=== PATIENT | female | born 1945 | race Caucasian/White ===

== ENCOUNTER 2017-12-24 03:30 | Emergency (ER) | payer BC ==
--- NOTE | 2017-12-24 03:54 | ER ---
Nurse's Notes [facility] Name: Betina Ward Age: 72 yrs Sex: Female : 1945 Arrival Date: 12/24/2017 Time: 03:35 Bed 5 Private MD: Karthik Gunter H Diagnosis: Otalgia and effusion of ear Presentation: 12/24 03:45 Presenting complaint: Patient states: right ear pain since , 6 days EDITORIAL INTERN. ak1 Transition of care: patient was not received from another setting of care. Onset of symptoms is unknown. Risk Assessment: Do you want to hurt yourself or someone else? Patient reports no desire to harm self or others. Initial Sepsis Screen: Does the patient meet any 2 criteria? No. Patient's initial sepsis screen is negative. Does the patient have a suspected source of infection? No. Patient's initial sepsis screen is negative. Care prior to arrival: None. 03:45 Method Of Arrival: Ambulatory ak1 03:45 Acuity: RIANA 4 ak1 Triage Assessment: 03:47 General: Appears in no apparent distress. Behavior is calm, cooperative. Pain: ak1 Complains of pain in right ear. Historical: - Allergies: 03:47 No Known Allergies; ak1 - Home Meds: 03:47 Unable to obtain [Active]; ak1 - PMHx: 03:47 Diabetes - IDDM; Hyperlipidemia; Hypertension; Hypothyroidism; ak1 - PSHx: 03:47 None; ak1 - Immunization history:: Adult Immunizations unknown. - Social history:: Smoking status: Patient/guardian denies using tobacco. - Ebola Screening: : No symptoms or risks identified at this time. Screenin:47 Abuse screen: Denies threats or abuse. Denies injuries from another. Nutritional ak1 screening: No deficits noted. Tuberculosis screening: No symptoms or risk factors identified. Fall Risk None identified. Assessment: 04:02 General: Appears in no apparent distress. Behavior is calm, cooperative, appropriate lp1 for age. Pain: Complains of pain in right ear Pain currently is 5 out of 10 on a pain scale. Neuro: Level of Consciousness is awake, alert, obeys commands. Cardiovascular: Patient's skin is warm and dry. Respiratory: Respiratory effort is even, unlabored. GI: No signs and/or symptoms were reported involving the gastrointestinal system. : No signs and/or symptoms were reported regarding the genitourinary system. EENT: Reports pain in right ear. Derm: Skin is pink, warm \T\ dry. Musculoskeletal: Circulation, motion, and sensation intact. Vital Signs: 03:45 BP 170 / 103; Pulse 107; Resp 18; Temp 99(TE); Pulse Ox 98% on R/A; Weight 81.65 kg ak1 (R); Height 5 ft. 6 in. (167.64 cm) (R); Pain 8/10; 03:45 Body Mass Index 29.05 (81.65 kg, 167.64 cm) ak1 ED Course: 03:35 Patient arrived in ED. al2 03:36 Karthik Gunter DO is Private Physician. al2 03:41 Vlad Downs MD is Attending Physician. 03:46 Triage completed. ak1 03:47 Arm band placed on Patient placed in an exam room, on a stretcher, Patient notified of ak1 wait time. 03:48 Patient has correct armband on for positive identification. Bed in low position. Call ak1 light in reach. Side rails up X 1. Adult w/ patient. 03:52 Karo Huitron MD is Referral Physician. 04:02 Gina Hernadez, RN is Primary Nurse. lp1 04:03 No provider procedures requiring assistance completed. Patient did not have IV access lp1 during this emergency room visit. Administered Medications: No medications were administered Outcome: 03:53 Discharge ordered by . 04:03 Discharged to home ambulatory, with significant other. lp1 04:03 Condition: good 04:03 Discharge instructions given to patient, Instructed on discharge instructions, follow up and referral plans. medication usage, Demonstrated understanding of instructions, follow-up care, medications, Prescriptions given X 2. 04:04 Patient left the ED. lp1 Signatures: Gina Hernadez RN RN lp1 Jeannie Rizo RN RN ak1 Vlad Downs MD MD gs Love, Angelica al2
--- NOTE | 2017-12-24 03:54 | EDPHYS ---
Physician Documentation [facility] Name: Betina Ward Age: 72 yrs Sex: Female : 1945 Arrival Date: 12/24/2017 Time: 03:35 Bed 5 Private MD: Karthik Gunter H ED Physician Vlad Downs HPI: 12/24 03:51 This 72 yrs old Female presents to ER via Ambulatory with complaints of Ear gs Pain. 03:51 This 72 yrs old Female presents to ER via Ambulatory with complaints of Ear gs Pain. 03:51 The patient presents with pain. The complaints affect the right ear. Onset: The gs symptoms/episode began/occurred 5 day(s) ago, and became persistent. Modifying factors: The symptoms are alleviated by nothing, the symptoms are aggravated by pulling on ears. Associated signs and symptoms: Pertinent negatives: fever, lightheadedness, shortness of breath, sore throat. Severity of symptoms: At their worst the symptoms were moderate in the emergency department the symptoms are unchanged. The patient has experienced similar episodes in the past, a few times. Historical: - Allergies: 03:47 No Known Allergies; ak1 - Home Meds: 03:47 Unable to obtain [Active]; ak1 - PMHx: 03:47 Diabetes - IDDM; Hyperlipidemia; Hypertension; Hypothyroidism; ak1 - PSHx: 03:47 None; ak1 - Immunization history:: Adult Immunizations unknown. - Social history:: Smoking status: Patient/guardian denies using tobacco. - Ebola Screening: : No symptoms or risks identified at this time. ROS: 03:51 All other systems are negative. gs Exam: 03:51 Head/Face: Normocephalic, atraumatic. Eyes: Pupils equal round and reactive to light, gs extra-ocular motions intact. Lids and lashes normal. Conjunctiva and sclera are non-icteric and not injected. Cornea within normal limits. Periorbital areas with no swelling, redness, or edema. Neck: Trachea midline, no thyromegaly or masses palpated, and no cervical lymphadenopathy. Supple, full range of motion without nuchal rigidity, or vertebral point tenderness. No Meningismus. Chest/axilla: Normal chest wall appearance and motion. Nontender with no deformity. No lesions are appreciated. Cardiovascular: Regular rate and rhythm with a normal S1 and S2. No gallops, murmurs, or rubs. Normal PMI, no JVD. No pulse deficits. Respiratory: Lungs have equal breath sounds bilaterally, clear to auscultation and percussion. No rales, rhonchi or wheezes noted. No increased work of breathing, no retractions or nasal flaring. Abdomen/GI: Soft, non-tender, with normal bowel sounds. No distension or tympany. No guarding or rebound. No evidence of tenderness throughout. Back: No spinal tenderness. No costovertebral tenderness. Full range of motion. Skin: Warm, dry with normal turgor. Normal color with no rashes, no lesions, and no evidence of cellulitis. MS/ Extremity: Pulses equal, no cyanosis. Neurovascular intact. Full, normal range of motion. Neuro: Awake and alert, GCS 15, oriented to person, place, time, and situation. Cranial nerves II-XII grossly intact. Motor strength 5/5 in all extremities. Sensory grossly intact. Cerebellar exam normal. Normal gait. 03:51 Constitutional: The patient appears in no acute distress, alert, awake. 03:51 ENT: Ear canal(s): are normal, TM's: dullness, on the right, fluid levels, on the right, loss of bony landmarks, that is moderate, on the right. Vital Signs: 03:45 BP 170 / 103; Pulse 107; Resp 18; Temp 99(TE); Pulse Ox 98% on R/A; Weight 81.65 kg ak1 (R); Height 5 ft. 6 in. (167.64 cm) (R); Pain 8/10; 03:45 Body Mass Index 29.05 (81.65 kg, 167.64 cm) ak1 MDM: 03:47 Patient medically screened. 03:51 Differential diagnosis: otitis media, acute otalgia, barotrauma . Data reviewed: vital gs signs, nurses notes. Administered Medications: No medications were administered Disposition: 12/24/17 03:53 Discharged to Home. Impression: Otalgia and effusion of ear. - Condition is Stable. - Discharge Instructions: Otitis Media With Effusion. - Prescriptions for Ceftin 250 mg Oral Tablet - take 1 tablet by ORAL route every 12 hours for 10 days; 20 tablet. Tylenol- Codeine #3 300-30 mg Oral Tablet - take 1 tablet by ORAL route every 6 hours As needed; 10 tablet. - Medication Reconciliation Form, Thank You Letter, Antibiotic Education, Prescription Opioid Use form. - Follow up: Private Physician; When: 2 - 3 days; Reason: Re-evaluation by your physician. Follow up: Karo Huitron MD; When: 5 - 6 days; Reason: Re-evaluation by your physician. Signatures: Gina Hernadez RN RN lp1 Jeannie Rizo RN RN ak1 Vlad Downs MD MD gs Corrections: (The following items were deleted from the chart) 04:04 03:53 12/24/2017 03:53 Discharged to Home. Impression: Otalgia and effusion of ear. lp1 Condition is Stable. Forms are Medication Reconciliation Form, Thank You Letter, Antibiotic Education, Prescription Opioid Use. Follow up: Private Physician; When: 2 - 3 days; Reason: Re-evaluation by your physician. Follow up: Karo Huitron; When: 5 - 6 days; Reason: Re-evaluation by your physician. gs
== END 2017-12-24 04:04 | disposition home or self-care (01) ==
LOC: ER 03:30
DX: H92.01 Otalgia, right ear (principal); E11.9 Type 2 diabetes mellitus without complications; E78.5 Hyperlipidemia, unspecified; I10 Essential (primary) hypertension; E03.9 Hypothyroidism, unspecified; Z79.4 Long term (current) use of insulin
CPT/HCPCS: 99282

== ENCOUNTER 2018-10-09 17:04 | Emergency (ER) | payer BC ==
[2018-10-09] MEDS ORDERED: LABETALOL 20 MG/4ML SYRINGE IV ONE (20:06)
[2018-10-09] MEDS ORDERED: NA CHLORIDE 0.9% 100 ML IV ONE (20:07)
[2018-10-09 20:25] LABS: Absolute Lymphocytes (CBC) 2.7 K/uL (0.7-4.9); Absolute Monocytes 0.8 K/uL (0.1-1.3); Absolute Neutrophil 5.9 K/uL (1.8-8.0); Basophils % 0.8 % (0-1.3); Eosinophils % 0.9 % (0-4.4); Hematocrit 43.4 % (36.0-45.0); Lymphocytes % 28.8 % (15.3-44.8); MPV 8.2 fL (7.6-11.3); Monocytes % 8.1 % (3.3-12.3); RBC Red Blood Cell Count 4.89 M/uL (3.86-4.86)
--- NOTE | 2018-10-09 20:27 | RAD REPORT ---
EXAM DESCRIPTION: RAD - Elbow Left 3 View - 10/09/2018 8:13 pm CLINICAL HISTORY: PAIN COMPARISON: No comparisons FINDINGS: No acute fracture or dislocation is seen. Tendon calcifications are seen about the medial and lateral epicondyles.
[2018-10-09 20:39] LABS: Potassium 3.6 mmol/L (3.5-5.1)
[2018-10-09] MEDS ORDERED: prednisoLONE 15 MG/5 ML OSYR ONE (22:07)
[2018-10-09] MEDS ORDERED: INDOMETHACIN 25 MG CAP ONE (22:21)
--- NOTE | 2018-10-09 22:35 | ER ---
Nurse's Notes [facility] Name: Betina Ward Age: 72 yrs Sex: Female : 1945 Arrival Date: 10/09/2018 Time: 17:05 Bed 23 Private MD: Diagnosis: Pain in left elbow Presentation: 10/09 17:10 Presenting complaint: Patient states: my L elbow started hurting yesterday, it moves up ss to the L arm; denies trauma to the area;. Transition of care: patient was not received from another setting of care. Onset of symptoms was October 09, 2018. Risk Assessment: Do you want to hurt yourself or someone else? Patient reports no desire to harm self or others. Initial Sepsis Screen: Does the patient meet any 2 criteria? No. Patient's initial sepsis screen is negative. Does the patient have a suspected source of infection? No. Patient's initial sepsis screen is negative. Care prior to arrival: None. 17:10 Method Of Arrival: Ambulatory ss 17:10 Acuity: RIANA 4 ss Historical: - Allergies: 17:12 No Known Drug Allergies; ss - PMHx: 17:12 Diabetes - IDDM; Hyperlipidemia; Hypertension; Hypothyroidism; ss - PSHx: 17:12 None; ss - Immunization history:: Adult Immunizations up to date. - Social history:: Smoking status: Patient/guardian denies using tobacco. - Ebola Screening: : No symptoms or risks identified at this time. Screenin:01 Abuse screen: Denies threats or abuse. Denies injuries from another. Nutritional rv screening: No deficits noted. Tuberculosis screening: No symptoms or risk factors identified. Fall Risk None identified. Assessment: 18:56 General: Appears in no apparent distress. comfortable, Behavior is calm, cooperative. rv Pain: Complains of pain in left arm. Neuro: Level of Consciousness is awake, alert, obeys commands, Oriented to person, place, time, situation. Cardiovascular: Capillary refill < 3 seconds. Respiratory: Airway is patent. GI: No signs and/or symptoms were reported involving the gastrointestinal system. : No signs and/or symptoms were reported regarding the genitourinary system. EENT: No signs and/or symptoms were reported regarding the EENT system. Derm: Rash noted that is on left elbow. Musculoskeletal: No signs and/or symptoms reported regarding the musculoskeletal system. 19:50 Reassessment: Patient appears in no apparent distress at this time. Patient and/or rv family updated on plan of care and expected duration. Pain level reassessed. Patient is alert, oriented x 3, equal unlabored respirations, skin warm/dry/pink. Vital Signs: 17:12 BP 193 / 78; Pulse 99; Resp 18; Temp 97.6(TE); Pulse Ox 97% on R/A; Weight 72.57 kg; ss Height 5 ft. 4 in. (162.56 cm); Pain 10/10; 18:00 BP 215 / 104; Pulse 98; Resp 16; Temp 97.8; Pulse Ox 100% ; rv 18:30 BP 212 / 78; Pulse 93; Resp 15; Temp 97.5; Pulse Ox 98% ; rv 19:00 BP 202 / 92; Pulse 91; Resp 15; Temp 97.6; Pulse Ox 98% ; rv 19:30 BP 194 / 72; Pulse 88; Resp 18; Temp 97.4; Pulse Ox 99% ; rv 20:26 BP 152 / 89; Pulse 81; Resp 18; Temp 97.4; Pulse Ox 100% ; rv 22:59 BP 166 / 66; Pulse 85; Resp 16; Temp 97.8; Pulse Ox 98% ; rv 17:12 Body Mass Index 27.46 (72.57 kg, 162.56 cm) ED Course: 17:05 Patient arrived in ED. as 17:11 Triage completed. ss 17:12 Arm band placed on right wrist. ss 18:56 Jose Manuel Martin, RN is Primary Nurse. rv 19:02 Patient has correct armband on for positive identification. Bed in low position. Call rv light in reach. Side rails up X 1. Adult w/ patient. Pulse ox on. NIBP on. 19:39 Eliel Diaz PA is PHCP. jr8 19:39 Catrahco Pena MD is Attending Physician. jr8 20:12 Inserted saline lock: 22 gauge in right antecubital area, using aseptic technique. rv Blood collected. 20:12 First set of blood cultures drawn by me. rv 20:13 XRAY Elbow LEFT 3 view In Process Unspecified. EDMS 22:33 Yao Lucas MD is Referral Physician. jr8 22:59 No provider procedures requiring assistance completed. IV discontinued, intact, rv bleeding controlled, No redness/swelling at site. Pressure dressing applied. Administered Medications: 20:12 Drug: Labetalol 10 mg Route: IVP; Site: right antecubital; rv 20:26 Follow up: Response: Blood pressure is lowered rv 21:30 Drug: prednisoLONE Liquid 60 mg Route: PO; rv 23:00 Follow up: Response: Marked relief of symptoms rv 22:14 Drug: Indocin 50 mg Route: PO; rv 23:00 Follow up: Response: Marked relief of symptoms rv Outcome: 22:34 Discharge ordered by . jr8 22:59 Discharged to home ambulatory. rv 22:59 Condition: good 22:59 Discharge instructions given to patient, family, Instructed on discharge instructions, follow up and referral plans. medication usage, Demonstrated understanding of instructions, follow-up care, medications, Prescriptions given X 3. 23:00 Patient left the ED. rv Signatures: Dispatcher [employer] EDMS Antonia Mccall Shelby, RN RN ss Eliel Diaz PA PA jr8 Jose Manuel Martin RN RN rv Corrections: (The following items were deleted from the chart) 17:14 17:12 Pulse 99bpm; Resp 18bpm; Pulse Ox 97% RA; Temp 97.6F Temporal; 72.57 kg; Height 5 ss ft. 4 in.; BMI: 27.4; Pain 10/10; ss 17:15 17:12 Pulse 99bpm; Resp 18bpm; Pulse Ox 97% RA; Temp 97.6F Temporal; 72.57 kg; Height 5 ss ft. 4 in.; BMI: 27.4; Pain 10/10; ss 22:14 22:14 prednisoLONE Liquid 60 mg PO rv rv
--- NOTE | 2018-10-09 22:35 | EDPHYS ---
Physician Documentation [facility] Name: Betina Ward Age: 72 yrs Sex: Female : 1945 Arrival Date: 10/09/2018 Time: 17:05 Bed 23 Private MD: ED Physician Catracho Pena HPI: 10/09 21:02 This 72 yrs old Female presents to ER via Ambulatory with complaints of Arm jr8 Pain. 21:02 The patient or guardian complains of decreased range of motion, pain, tenderness. The jr8 complaints affect the left elbow. Onset: The symptoms/episode began/occurred acutely, today. Treatment prior to arrival includes: no previous treatment. Modifying factors: The symptoms are alleviated by nothing. the symptoms are aggravated by movement. Associated signs and symptoms: The patient has no apparent associated signs or symptoms. Severity of symptoms: At their worst the symptoms were moderate, in the emergency department the symptoms are unchanged. The patient has not experienced similar symptoms in the past. The patient has not recently seen a physician. Stated that today had elbow pain that is not going away. Denies trauma to elbow. Historical: - Allergies: 17:12 No Known Drug Allergies; ss - PMHx: 17:12 Diabetes - IDDM; Hyperlipidemia; Hypertension; Hypothyroidism; ss - PSHx: 17:12 None; ss - Immunization history:: Adult Immunizations up to date. - Social history:: Smoking status: Patient/guardian denies using tobacco. - Ebola Screening: : No symptoms or risks identified at this time. ROS: 21:02 Eyes: Negative for injury, pain, redness, and discharge, ENT: Negative for injury, jr8 pain, and discharge, Neck: Negative for injury, pain, and swelling, Cardiovascular: Negative for chest pain, palpitations, and edema, Respiratory: Negative for shortness of breath, cough, wheezing, and pleuritic chest pain, Abdomen/GI: Negative for abdominal pain, nausea, vomiting, diarrhea, and constipation, Back: Negative for injury and pain, Skin: Negative for injury, rash, and discoloration, Neuro: Negative for headache, weakness, numbness, tingling, and seizure. 21:02 MS/extremity: Positive for erythema, pain, tenderness, warmth, of the left elbow. Exam: 21:02 Eyes: Pupils equal round and reactive to light, extra-ocular motions intact. Lids and jr8 lashes normal. Conjunctiva and sclera are non-icteric and not injected. Cornea within normal limits. Periorbital areas with no swelling, redness, or edema. ENT: Nares patent. No nasal discharge, no septal abnormalities noted. Tympanic membranes are normal and external auditory canals are clear. Oropharynx with no redness, swelling, or masses, exudates, or evidence of obstruction, uvula midline. Mucous membranes moist. Neck: Trachea midline, no thyromegaly or masses palpated, and no cervical lymphadenopathy. Supple, full range of motion without nuchal rigidity, or vertebral point tenderness. No Meningismus. Cardiovascular: Regular rate and rhythm with a normal S1 and S2. No gallops, murmurs, or rubs. Normal PMI, no JVD. No pulse deficits. Respiratory: Lungs have equal breath sounds bilaterally, clear to auscultation and percussion. No rales, rhonchi or wheezes noted. No increased work of breathing, no retractions or nasal flaring. Abdomen/GI: Soft, non-tender, with normal bowel sounds. No distension or tympany. No guarding or rebound. No evidence of tenderness throughout. Back: No spinal tenderness. No costovertebral tenderness. Full range of motion. Skin: Warm, dry with normal turgor. Normal color with no rashes, no lesions, and no evidence of cellulitis. Neuro: Awake and alert, GCS 15, oriented to person, place, time, and situation. Cranial nerves II-XII grossly intact. Motor strength 5/5 in all extremities. Sensory grossly intact. Cerebellar exam normal. Normal gait. 21:02 Musculoskeletal/extremity: Extremities: grossly normal except: noted in the left elbow: erythema, pain, tenderness, lateral portion of elbow. No bursa inflammation noted. No global swelling or erythema noted. Pain with ROM. Decreased ROM secondary to pain but has active ROM. , Circulation is intact in all extremities. Sensation intact. Vital Signs: 17:12 BP 193 / 78; Pulse 99; Resp 18; Temp 97.6(TE); Pulse Ox 97% on R/A; Weight 72.57 kg; ss Height 5 ft. 4 in. (162.56 cm); Pain 10/10; 18:00 BP 215 / 104; Pulse 98; Resp 16; Temp 97.8; Pulse Ox 100% ; rv 18:30 BP 212 / 78; Pulse 93; Resp 15; Temp 97.5; Pulse Ox 98% ; rv 19:00 BP 202 / 92; Pulse 91; Resp 15; Temp 97.6; Pulse Ox 98% ; rv 19:30 BP 194 / 72; Pulse 88; Resp 18; Temp 97.4; Pulse Ox 99% ; rv 20:26 BP 152 / 89; Pulse 81; Resp 18; Temp 97.4; Pulse Ox 100% ; rv 22:59 BP 166 / 66; Pulse 85; Resp 16; Temp 97.8; Pulse Ox 98% ; rv 17:12 Body Mass Index 27.46 (72.57 kg, 162.56 cm) ss MDM: 19:39 Patient medically screened. jr8 22:32 Data reviewed: vital signs, nurses notes, lab test result(s), radiologic studies, plain jr8 films. Data interpreted: Pulse oximetry: on room air is 100 %. Interpretation: normal. Counseling: I had a detailed discussion with the patient and/or guardian regarding: the historical points, exam findings, and any diagnostic results supporting the discharge/admit diagnosis, lab results, radiology results, the need for outpatient follow up, a orthopedic surgeon, to return to the emergency department if symptoms worsen or persist or if there are any questions or concerns that arise at home. Response to treatment: the patient's symptoms have markedly improved after treatment. 10/09 19:46 Order name: CBC with Diff; Complete Time: 20:45 [facility] 10/09 19:46 Order name: Basic Metabolic Panel; Complete Time: 20:45 8 10/09 19:46 Order name: XRAY Elbow LEFT 3 view; Complete Time: 20:45 8 10/09 19:46 Order name: Blood Culture Adult (2) [facility] 10/09 19:46 Order name: IV; Complete Time: 20:13 jr8 Administered Medications: 20:12 Drug: Labetalol 10 mg Route: IVP; Site: right antecubital; rv 20:26 Follow up: Response: Blood pressure is lowered rv 21:30 Drug: prednisoLONE Liquid 60 mg Route: PO; rv 23:00 Follow up: Response: Marked relief of symptoms rv 22:14 Drug: Indocin 50 mg Route: PO; rv 23:00 Follow up: Response: Marked relief of symptoms rv Disposition: 05/10 15:00 Co-signature as Attending Physician, Catracho Pena MD I agree with the assessment and marsha plan of care. Disposition: 10/09/18 22:34 Discharged to Home. Impression: Pain in left elbow. - Condition is Stable. - Discharge Instructions: Joint Pain, Gout, Septic Arthritis. - Prescriptions for indomethacin 25 mg Oral capsule - take 1 capsule by ORAL route 3 times per day As needed with food; 20 capsule. Prednisone 20 mg Oral Tablet - take 1 tablet by ORAL route once daily for 5 days; 5 tablet. Bactrim DS 800- 160 mg Oral Tablet - take 1 tablet by ORAL route every 12 hours for 7 days; 14 tablet. - Medication Reconciliation Form, Thank You Letter, Antibiotic Education, Prescription Opioid Use form. - Follow up: Yao Lucas MD; When: 2 - 3 days; Reason: Recheck today's complaints, Continuance of care, Re-evaluation by your physician. - Problem is new. - Symptoms have improved. Signatures: Dispatcher [employer] EDIN Catracho Pena MD MD cha Smirch, Shelby RN RN Eliel Peoples PA PA jr8 Jose Manuel Martin RN RN rv Corrections: (The following items were deleted from the chart) 10/09 23:00 22:34 10/09/2018 22:34 Discharged to Home. Impression: Pain in left elbow. Condition is rv Stable. Forms are Medication Reconciliation Form, Thank You Letter, Antibiotic Education, Prescription Opioid Use. Follow up: Yao Lucas; When: 2 - 3 days; Reason: Recheck today's complaints, Continuance of care, Re-evaluation by your physician. Problem is new. Symptoms have improved. jr8
== END 2018-10-09 23:00 | disposition home or self-care (01) ==
LOC: ER 17:04
DX: M25.522 Pain in left elbow (principal); E11.9 Type 2 diabetes mellitus without complications; E78.5 Hyperlipidemia, unspecified; E03.9 Hypothyroidism, unspecified; I10 Essential (primary) hypertension; Z79.4 Long term (current) use of insulin
CPT/HCPCS: 36415; 80048; 85025; 87040; 96374; 99284; J7510

== ENCOUNTER 2020-02-14 09:14 | Inpatient (IN) | payer OTHER, BC ==
[2020-02-14] MEDS ORDERED: NA CHLORIDE 0.9% 1,000 ML ONE (09:42)
[2020-02-14 10:19] LABS: Absolute Lymphocytes (CBC) 3.5 K/uL (0.7-4.9); Basophils % 0.3 % (0-1.3); Hematocrit 40.7 % (36.0-45.0); Lymphocytes % 37.8 % (15.3-44.8); MPV 10.1 fL (7.6-11.3); RBC Red Blood Cell Count 4.77 M/uL (3.86-4.86)
[2020-02-14 10:44] LABS: ALT/SGPT 18 U/L (12-78); AST/SGOT 24 U/L (15-37); Albumin 3.8 g/dL (3.4-5.0); Alkaline Phosphatase 78 U/L (45-117); BUN Blood Urea Nitrogen 160 mg/dL (7-18); Bicarbonate 15 mmol/L (21-32); Bilirubin Direct < 0.1 mg/dL (0-0.2); Bilirubin Total 0.3 mg/dL (0.2-1.0); Glucose Level 78 mg/dL (74-106); Lipase 461 U/L (73-393); Magnesium 3.5 mg/dL (1.8-2.4); NT PRO-BNP 394 pg/mL (<125); Potassium 5.3 mmol/L (3.5-5.1); Protein, Total 8.4 g/dL (6.4-8.2); Sodium Level 130 mmol/L (136-145); Troponin (Emerg Dept Use Only) 0.05 ng/mL (0.0-0.045)
[2020-02-14 10:52] LABS: Urine Blood 2+ (NEG); Urine Glucose NEGATIVE (NEG); Urine Protein 1+ (NEG)
[2020-02-14] MEDS ORDERED: CEFTRIAXONE/SWI 1gm 1 GM/10 ML SYR ONE (10:53)
[2020-02-14 11:11] LABS: Urine Bacteria LOADED /HPF (<20); Urine Culture Reflex Order NOT NEEDED; Urine Mucus 2+ /HPF (NONE SEEN); Urine RBC 20-50 /HPF (NONE SEEN)
--- NOTE | 2020-02-14 11:11 | ER ---
Nurse's Notes [facility] Name: Betina Ward Age: 74 yrs Sex: Female : 1945 Arrival Date: 02/14/2020 Time: 09:19 Bed 5 Private MD: Karthik Gunter H Diagnosis: Acute kidney failure;Anorexia;Weakness;Type 1 diabetes mellitus;Urinary tract infection, site not specified;Hyperkalemia Presentation: 02/13 09:26 Chief complaint: Spouse and/or significant other states: "It's been a little over a ss week, she started to not eat as much, and now she isn't eating anything. She is just so weak.". Coronavirus screen: Client denies travel out of the [place] in the last 14 days. Ebola Screen: Patient denies exposure to infectious person. Patient denies travel to an Ebola-affected area in the 21 days before illness onset. Initial Sepsis Screen: Does the patient meet any 2 criteria? No. Patient's initial sepsis screen is negative. Does the patient have a suspected source of infection? No. Patient's initial sepsis screen is negative. Risk Assessment: Do you want to hurt yourself or someone else? Patient reports no desire to harm self or others. Onset of symptoms was February 06, 2020. 09:26 Method Of Arrival: Ambulatory ss 09:26 Acuity: RIANA 3 ss Historical: - Allergies: 09:30 No Known Allergies; ss - PMHx: 09:30 Diabetes - IDDM; Hyperlipidemia; Hypertension; Hypothyroidism; Glaucoma; ss - Immunization history:: Adult Immunizations up to date. - Social history:: Smoking status: Patient denies any tobacco usage or history of. - Family history:: not pertinent. Screenin:30 Abuse screen: Denies threats or abuse. Denies injuries from another. Nutritional ss screening: "Has not eaten well in over week"- . Tuberculosis screening: Never had TB. Fall Risk No fall in past 12 months (0 pts). Secondary diagnosis (15 points) fatigue. IV access (20 points). Ambulatory Aid- None/Bed Rest/Nurse Assist (0 pts). Gait- Normal/Bed Rest/Wheelchair (0 pts) Mental Status- Oriented to own ability (0 pts). Assessment: 09:42 General: Appears in no apparent distress. Behavior is calm, cooperative. Pain: Denies hb pain. Neuro: Level of Consciousness is awake, alert, obeys commands, Oriented to person, place, time, situation. Cardiovascular: Capillary refill < 3 seconds Patient's skin is warm and dry. Respiratory: Respiratory effort is even, unlabored, Respiratory pattern is regular, symmetrical. GI: Parent/caregiver reports the patient having anorexia. : No signs and/or symptoms were reported regarding the genitourinary system. EENT: No signs and/or symptoms were reported regarding the EENT system. Derm: Skin is pink, warm \\T\\ dry. Musculoskeletal: No signs and/or symptoms reported regarding the musculoskeletal system. 10:15 Reassessment: Patient appears in no apparent distress at this time. No changes from hb previously documented assessment. Patient and/or family updated on plan of care and expected duration. Pain level reassessed. 10:27 Reassessment: Ambulated to bathroom with assistance. Urine specimen provided. Assisted hb back to bed, call light within reach. NAD. 10:55 Reassessment: Ambulated to bathroom with assistance. Assisted back to bed, bed in low hb position, call light within reach. 11:13 Reassessment: Ambulated to bathroom with assistance, then to CTvia wheelchair with hb Leni. 11:36 Reassessment: Pt returned from CT. NAD. VSS. Admission ordered, awaiting room hb assignment at this time. 12:30 Reassessment: Patient and/or family updated on plan of care and expected duration. Pain ll1 level reassessed. Patient is alert, oriented x 3, equal unlabored respirations, skin warm/dry/pink. 13:30 Reassessment: Patient and/or family updated on plan of care and expected duration. Pain ll1 level reassessed. Patient is alert, oriented x 3, equal unlabored respirations, skin warm/dry/pink. 14:26 Reassessment: Patient and/or family updated on plan of care and expected duration. Pain ll1 level reassessed. Patient is alert, oriented x 3, equal unlabored respirations, skin warm/dry/pink. Vital Signs: 09:26 BP 143 / 67; Pulse 60; Resp 17; Temp 97.2(TE); Pulse Ox 100% on R/A; Weight 70.67 kg ss (M); Pain 0/10; 10:15 BP 136 / 68; Pulse 61; Resp 17; Pulse Ox 100% on R/A; hb 11:30 BP 110 / 50; Pulse 54; Resp 16; Pulse Ox 100% ; ll1 13:46 BP 118 / 51; Pulse 61; Resp 17; Pulse Ox 100% ; ll1 14:06 BP 116 / 54; Pulse 60; Resp 16; Temp 97.5; Pulse Ox 100% ; ll1 ED Course: 09:19 Patient arrived in ED. mr 09:19 Karthik Gunter DO is Private Physician. mr 09:21 Catracho Pena MD is Attending Physician. marsha 09:29 Triage completed. ss 09:30 Arm band placed on right wrist. ss 09:30 Patient has correct armband on for positive identification. Bed in low position. Call ss light in reach. Placed in gown. Pulse ox on. NIBP on. 09:42 Inserted saline lock: 20 gauge in left antecubital area, using aseptic technique. Blood hb collected. 09:44 Kaitlin Heredia, TONE is Primary Nurse. hb 09:53 XRAY Chest (1 view) In Process Unspecified. EDMS 11:08 Kentrell Russell is Hospitalizing Provider. marsha 11:19 CT Stone Protocol In Process Unspecified. EDMS 11:30 CT completed. Patient tolerated procedure well. Patient moved back from CT. bq 14:26 No provider procedures requiring assistance completed. Patient admitted, IV remains in ll1 place. Administered Medications: 09:44 Drug: NS 0.9% 500 ml Route: IV; Rate: bolus; Site: left antecubital; hb 10:08 Follow up: Response: No adverse reaction; IV Status: Completed infusion; IV Intake: hb 500ml 10:08 Drug: NS 0.9% 1000 ml Route: IV; Rate: 125 ml/hr; Site: left antecubital; hb 11:35 Follow up: Response: No adverse reaction; IV Status: Order to discontinue infusion; IV hb Intake: 140ml 10:42 Drug: Rocephin 1 grams Route: IV; Rate: per protocol; Site: left antecubital; hb 10:43 Follow up: IV Status: Completed infusion; IV Intake: 10ml hb 11:35 Follow up: Response: No adverse reaction hb 11:34 Drug: Kayexalate 30 grams Route: PO; hb 13:45 Follow up: Response: No adverse reaction ll1 11:35 Drug: D5-1/2 NS 1000 ml Route: IV; Rate: 100 ml/hr; Site: left antecubital; hb 11:35 Drug: Sodium Bicarbonate 1.5 amp Route: IVP; Site: left antecubital; hb 13:45 Follow up: Response: No adverse reaction ll1 Intake: 10:08 IV: 500ml; Total: 500ml. hb 10:43 IV: 10ml; Total: 510ml. hb 11:35 IV: 140ml; Total: 650ml. hb Output: 14:41 Urine: 300ml (Voided); Total: 300ml. ll1 Outcome: 11:10 Decision to Hospitalize by Provider. marsha 14:10 Admitted to Med/surg Report called to nurse Meghna on . 1 14:27 Admitted to Med/surg accompanied by catherine, via stretcher, room 213, with chart. ll1 14:27 Condition: stable 14:27 Instructed on the need for admit. 14:39 Patient left the ED. 1 Signatures: Dispatcher [employer] EDMS Catracho Pena MD MD cha Rivera, Mary mr TreverannaLeni Shelby, RN RN ss Baxter, Heather, RN RN hb Lewis, Lynsay, RN RN 1
--- NOTE | 2020-02-14 11:11 | EDPHYS ---
Physician Documentation [facility] Name: Betina Ward Age: 74 yrs Sex: Female : 1945 Arrival Date: 02/14/2020 Time: 09:19 Bed 5 Private MD: Karthik Gunter H ED Physician Catracho Pena HPI: 02/13 11:00 This 74 yrs old Female presents to ER via Ambulatory with complaints of marsha Decreased Appetite. 11:00 The patient presents to the emergency department with nausea. Onset: The marsha symptoms/episode began/occurred 5 day(s) ago. Possible causes: unknown. The symptoms are aggravated by nothing. The symptoms are alleviated by nothing. weak, no appetite, not eating or drinking. Associated signs and symptoms: Pertinent positives: anorexia, nausea. Onset: The symptoms/episode began/occurred 1 week(s) ago. Severity of symptoms: At their worst the symptoms were mild moderate in the emergency department the symptoms are unchanged. The patient has not experienced similar symptoms in the past. Historical: - Allergies: :30 No Known Allergies; ss - PMHx: :30 Diabetes - IDDM; Hyperlipidemia; Hypertension; Hypothyroidism; Glaucoma; ss - Immunization history:: Adult Immunizations up to date. - Social history:: Smoking status: Patient denies any tobacco usage or history of. - Family history:: not pertinent. ROS: 11:03 Constitutional: Negative for fever, chills, and weight loss, Eyes: Negative for injury, marsha pain, redness, and discharge, ENT: Negative for injury, pain, and discharge, Neck: Negative for injury, pain, and swelling, Cardiovascular: Negative for chest pain, palpitations, and edema, Respiratory: Negative for shortness of breath, cough, wheezing, and pleuritic chest pain, Back: Negative for injury and pain, : Negative for injury, bleeding, discharge, and swelling, MS/Extremity: Negative for injury and deformity, Skin: Negative for injury, rash, and discoloration, Psych: Negative for depression, anxiety, suicide ideation, homicidal ideation, and hallucinations, Allergy/Immunology: Negative for hives, rash, and allergies, Endocrine: Negative for neck swelling, polydipsia, polyuria, polyphagia, and marked weight changes, Hematologic/Lymphatic: Negative for swollen nodes, abnormal bleeding, and unusual bruising. Exam: 11:07 Constitutional: This is a well developed, well nourished patient who is awake, alert, marsha and in no acute distress. Head/Face: Normocephalic, atraumatic. Eyes: Pupils equal round and reactive to light, extra-ocular motions intact. Lids and lashes normal. Conjunctiva and sclera are non-icteric and not injected. Cornea within normal limits. Periorbital areas with no swelling, redness, or edema. ENT: Nares patent. No nasal discharge, no septal abnormalities noted. Tympanic membranes are normal and external auditory canals are clear. Oropharynx with no redness, swelling, or masses, exudates, or evidence of obstruction, uvula midline. Mucous membranes moist. Neck: Trachea midline, no thyromegaly or masses palpated, and no cervical lymphadenopathy. Supple, full range of motion without nuchal rigidity, or vertebral point tenderness. No Meningismus. Chest/axilla: Normal chest wall appearance and motion. Nontender with no deformity. No lesions are appreciated. Cardiovascular: Regular rate and rhythm with a normal S1 and S2. No gallops, murmurs, or rubs. Normal PMI, no JVD. No pulse deficits. Respiratory: Lungs have equal breath sounds bilaterally, clear to auscultation and percussion. No rales, rhonchi or wheezes noted. No increased work of breathing, no retractions or nasal flaring. Abdomen/GI: Soft, non-tender, with normal bowel sounds. No distension or tympany. No guarding or rebound. No evidence of tenderness throughout. Back: No spinal tenderness. No costovertebral tenderness. Full range of motion. Female : Normal external genitalia. Skin: Warm, dry with normal turgor. Normal color with no rashes, no lesions, and no evidence of cellulitis. MS/ Extremity: Pulses equal, no cyanosis. Neurovascular intact. Full, normal range of motion. Neuro: Awake and alert, GCS 15, oriented to person, place, time, and situation. Cranial nerves II-XII grossly intact. Motor strength 5/5 in all extremities. Sensory grossly intact. Cerebellar exam normal. Normal gait. Psych: Awake, alert, with orientation to person, place and time. Behavior, mood, and affect are within normal limits. 11:18 ECG was reviewed by the Attending Physician. [facility] Vital Signs: 09:26 BP 143 / 67; Pulse 60; Resp 17; Temp 97.2(TE); Pulse Ox 100% on R/A; Weight 70.67 kg ss (M); Pain 0/10; 10:15 BP 136 / 68; Pulse 61; Resp 17; Pulse Ox 100% on R/A; hb 11:30 BP 110 / 50; Pulse 54; Resp 16; Pulse Ox 100% ; ll1 13:46 BP 118 / 51; Pulse 61; Resp 17; Pulse Ox 100% ; ll1 14:06 BP 116 / 54; Pulse 60; Resp 16; Temp 97.5; Pulse Ox 100% ; ll1 MDM: 09:22 Patient medically screened. [facility] 11:15 Differential diagnosis: Nonspecific abd pain, gastritis, viral gastroenteritis, marsha gastroenteritis. Data reviewed: vital signs, nurses notes, lab test result(s), EKG, radiologic studies. Data interpreted: early childhood educator aide: rate is 61 beats/min, rhythm is regular. Test interpretation: by ED physician or midlevel provider: ECG, plain radiologic studies. Counseling: I had a detailed discussion with the patient and/or guardian regarding: the historical points, exam findings, and any diagnostic results supporting the discharge/admit diagnosis, lab results, radiology results, the need for further work-up and treatment in the hospital. ED course: DW DR VANEGAS AND DR RASMUSSEN, ALL RESULTS DW WITH THE PATIENT AND HER FAMILY. 02/13 09:24 Order name: Basic Metabolic Panel; Complete Time: 10:53 marsha 02/13 09:24 Order name: CBC with Diff; Complete Time: 10:53 [facility] 02/13 09:24 Order name: LFT's; Complete Time: 10:53 02/13 09:24 Order name: Magnesium; Complete Time: 10:53 [facility] 02/13 09:24 Order name: NT PRO-BNP; Complete Time: 10:53 [facility] 02/13 09:24 Order name: Troponin (emerg Dept Use Only); Complete Time: 10:53 marsha 02/13 09:24 Order name: XRAY Chest (1 view); Complete Time: 11:47 marsha 02/13 09:25 Order name: Lipase; Complete Time: 10:53 [facility] 02/13 10:25 Order name: Urine Microscopic Only; Complete Time: 11:14 ss 02/13 10:26 Order name: Urine Dipstick--Ancillary (enter results); Complete Time: 10:53 eb 02/13 10:27 Order name: Urine Culture [facility] 02/13 10:54 Order name: CT Stone Protocol; Complete Time: 11:47 [facility] 02/13 11:14 Order name: CK [facility] 02/13 11:14 Order name: Uric Acid [facility] 02/13 09:24 Order name: EKG; Complete Time: 09:26 [facility] 02/13 09:25 Order name: Cardiac monitoring; Complete Time: 10:57 [facility] 02/13 09:25 Order name: EKG - Nurse/Tech; Complete Time: 10:57 [facility] 02/13 09:25 Order name: IV Saline Lock; Complete Time: 09:45 [facility] 02/13 09:25 Order name: Labs collected and sent; Complete Time: 09:45 [facility] 02/13 09:25 Order name: O2 Per Protocol; Complete Time: 09:45 [facility] 02/13 09:25 Order name: O2 Sat Monitoring; Complete Time: 09:45 [facility] 02/13 09:25 Order name: Urine Dipstick-Ancillary (obtain specimen); Complete Time: 10:25 [facility] EC:18 Rate is 49 beats/min. Rhythm is regular. QRS [place] is Normal. MD interval is normal. QRS marsha interval is normal. QT interval is normal. No Q waves. T waves are Normal. No ST changes noted. Clinical impression: Sinus bradycardia. Interpreted by me. Reviewed by me. Administered Medications: 09:44 Drug: NS 0.9% 500 ml Route: IV; Rate: bolus; Site: left antecubital; hb 10:08 Follow up: Response: No adverse reaction; IV Status: Completed infusion; IV Intake: hb 500ml 10:08 Drug: NS 0.9% 1000 ml Route: IV; Rate: 125 ml/hr; Site: left antecubital; hb 11:35 Follow up: Response: No adverse reaction; IV Status: Order to discontinue infusion; IV hb Intake: 140ml 10:42 Drug: Rocephin 1 grams Route: IV; Rate: per protocol; Site: left antecubital; hb 10:43 Follow up: IV Status: Completed infusion; IV Intake: 10ml hb 11:35 Follow up: Response: No adverse reaction hb 11:34 Drug: Kayexalate 30 grams Route: PO; hb 13:45 Follow up: Response: No adverse reaction ll1 11:35 Drug: D5-1/2 NS 1000 ml Route: IV; Rate: 100 ml/hr; Site: left antecubital; hb 11:35 Drug: Sodium Bicarbonate 1.5 amp Route: IVP; Site: left antecubital; hb 13:45 Follow up: Response: No adverse reaction ll1 Disposition: 02/14/20 11:10 Hospitalization ordered by Kentrell Rasmussen for Inpatient Admission. Preliminary diagnosis are Acute kidney failure, Anorexia, Weakness, Type 1 diabetes mellitus, Urinary tract infection, site not specified, Hyperkalemia. - Bed requested for Telemetry/MedSurg (Inpatient). - Status is Inpatient Admission. ll1 - Condition is Fair. - Problem is new. - Symptoms have improved. Signatures: Dispatcher [employer] EDMS Catracho Pena MD MD cha Smirch, Shelby, RN RN ss Baxter, Heather, RN RN hb Botello, Elizabeth eb Lewis, Lynsay, RN RN ll1 Corrections: (The following items were deleted from the chart) 11:17 11:10 Hospitalization Ordered by Kentrell Rasmussen for Inpatient Admission. Preliminary marsha diagnosis is Acute kidney failure; Anorexia; Weakness. Bed requested for Telemetry/MedSurg (Inpatient). Status is Inpatient Admission. Condition is Fair. Problem is new. Symptoms have improved. marsha 11:20 11:17 02/14/2020 11:10 Hospitalization Ordered by Kentrell Rasmussen for Inpatient marsha Admission. Preliminary diagnosis is Acute kidney failure; Anorexia; Weakness; Type 1 diabetes mellitus; Urinary tract infection, site not specified. Bed requested for Telemetry/MedSurg (Inpatient). Status is Inpatient Admission. Condition is Fair. Problem is new. Symptoms have improved. marsha 13:12 11:20 02/14/2020 11:10 Hospitalization Ordered by Kentrell Rasmussen for Inpatient eb Admission. Preliminary diagnosis is Acute kidney failure; Anorexia; Weakness; Type 1 diabetes mellitus; Urinary tract infection, site not specified; Hyperkalemia. Bed requested for Telemetry/MedSurg (Inpatient). Status is Inpatient Admission. Condition is Fair. Problem is new. Symptoms have improved. marsha 13:45 11:15 Rubin ordered. marsha ll1 14:39 13:12 02/14/2020 11:10 Hospitalization Ordered by Kentrell Rasmussen for Inpatient ll1 Admission. Preliminary diagnosis is Acute kidney failure; Anorexia; Weakness; Type 1 diabetes mellitus; Urinary tract infection, site not specified; Hyperkalemia. Bed requested for Telemetry/MedSurg (Inpatient). Status is Inpatient Admission. Condition is Fair. Problem is new. Symptoms have improved. eb
[2020-02-14] MEDS ORDERED: D5 0.45 NS 1,000 ML IV ONE (11:32)
[2020-02-14] MEDS ORDERED: SODIUM BICARB 50 MEQ/50ML VIAL ONE (11:32)
[2020-02-14] MEDS ORDERED: SOD POLYSTYREN SUL 15 GM/60 ML UCUP ONE (11:33)
--- NOTE | 2020-02-14 11:35 | RAD REPORT ---
EXAM DESCRIPTION: CT - Stone Protocol - 02/14/2020 11:19 am CLINICAL HISTORY: Flank pain. FLANK PAIN COMPARISON: No comparisons TECHNIQUE: Axial images were obtained without oral or IV contrast. Lack of contrast limits solid org an and vascular assessment. The [id number] spans the entirety of the system partially obscuring uppermost abdomen and lung bases. Coronal reformatted images were obtained and reviewed. All CT scans are performed using dose optimization technique as appropriate and may include automated exposure control or mA/KV adjustment according to patient size. FINDINGS: The lower lung mcmahan are clear. Imaged portions of the liver and spleen show no suspicious findings on non-contrast imaging. The panc reas and adrenal glands are normal. No pathologic lymphadenopathy in the abdomen or pelvis. No urinary tract stones or obstructive uropathy. Mild thickening of the posterior urinary bladder wal l is seen with a small diverticulum along the superior posterior right aspect of the urinary bladder. No bowel obstruction, free air, free fluid or abscess. Normal appendix noted.Sigmoid diverticulosis i s seen without diverticulitis. No significant bony abnormality. IMPRESSION: No urinary tract stones or obstructive uropathy. Urinary bladder wall thickening is noted, suggest correlation for the possibility of urinary tract in fection.
--- NOTE | 2020-02-14 11:39 | RAD REPORT ---
EXAM DESCRIPTION: RAD - Chest Single View - 02/14/2020 9:52 am CLINICAL HISTORY: COUGH Chest pain. COMPARISON: CHEST PA AND LAT 2 VIEW dated 10/05/2014; CHEST PA AND LAT 2 VIEW dated 04/18/2007 FINDINGS: Portable technique limits examination quality. The lungs are grossly clear. The heart is normal in size. No displaced fractures.Atherosclerosis. IMPRESSION: No acute intrathoracic process suspected.
[2020-02-14 11:58] LABS: Uric Acid 13.6 mg/dL (2.6-6.0)
--- NOTE | 2020-02-14 12:42 | P.HP ---
Certification for Inpatient Patient admitted to: Inpatient With expected LOS: >2 Midnights Practitioner: I am a practitioner with admitting privileges, knowledge of patient current condition, hospital course, and medical plan of care. Services: Services provided to patient in accordance with Admission requirements found in Title 42 Section 412.3 of the Code of Federal Regulations Patient History Date of Service: 02/14/20 Reason for admission: [place] History of Present Illness: 74-year-old woman with a history of hypertension and diabetes mellitus type 2 presented to the emergency department with a complaint of generalized weakness, intermittent diarrhea with alternating constipation and poor oral intake. states patient has not been eating well over the past 5 days. Patient denies any NSAID use. She denied any vomiting. Blood work showed acute renal failure with creatinine up to 4.5 and BUN up to 150. She has hyperkalemia. She has no leukocytosis. UA suggest the presence of UTI. CT abdomen and pelvis shows thickened urinary bladder wall suggestive of UTI. Nephrology contacted by the ED physician was now recommending bicarb drip. Patient admitted for further management. Allergies No Known Drug Allergies Allergy (Unverified 10/05/14 21:10) Unknown No Known Allergies Allergy (Uncoded 12/24/17 04:08) Unknown - Past Medical/Surgical History -: Hypertension -: Diabetes mellitus type 2 -: Hyperlipidemia -: Hypothyroidism - Family History Family History: Reviewed- Non-Contributory - Social History Smoking Status: Never smoker Alcohol use: No CD- Drugs: No Place of Residence: Home Review of Systems Other: Except as documented, all other systems reviewed and negative. Physical Examination - Physical Exam General: Alert, In no apparent distress, Oriented x3 HEENT: Mucous membr. moist/pink Neck: Supple, JVD not distended Respiratory: Clear to auscultation bilaterally, Normal air movement Cardiovascular: No edema, Regular rate/rhythm Gastrointestinal: Normal bowel sounds, Soft and benign, Non-distended, No tenderness Musculoskeletal: No swelling, No erythema Integumentary: No rashes Neurological: Normal strength at 5/5 x4 extr - Studies Laboratory Data (last 24 hrs) 02/14/20 09:39: Uric Acid 13.6 H 02/14/20 09:39: WBC 9.2, Hgb 14.2, Hct 40.7, Plt Count 288 02/14/20 09:39: Sodium 130 L, Potassium 5.3 H, BUN 160 H, Creatinine 4.50 H, Glucose 78, Magnesium 3.5 H, Total Bilirubin 0.3, AST 24, ALT 18, Alkaline Phosphatase 78, Lipase 461 H Assessment and Plan - Problems (Diagnosis) (1) Acute cystitis without hematuria Current Visit: Yes Status: Acute (2) Acute renal failure Current Visit: Yes Status: Acute (3) Diabetes mellitus Current Visit: Yes Status: Acute (4) Hypertension Current Visit: Yes Status: Acute (5) Metabolic acidosis Current Visit: Yes Status: Acute (6) Hyperkalemia Current Visit: Yes Status: Acute - Plan Admit to the medical floor. Start bicarb drip-bicarb in D5 water. IV Rocephin for UTI Nephrology consult Monitor renal function Follow urine culture Obtain blood culture. Insulin sliding scale for glucose management. The patient is already having diarrhea and anticipates potassium level to improve with IV hydration and the bicarb drip. Repeat BMP level in 6 hours. - Advance Directives Does patient have a Living Will: No Does patient have a Durable POA for Healthcare: No
[2020-02-14] MEDS ORDERED: ONDANSETRON 4 MG/2 ML VIAL IV PRN (15:06)
[2020-02-14 15:58] VITALS: BMI 26.7
[2020-02-14] MEDS: INSULIN -REGULAR HUMAN 50 UNIT/0.5 ML ML SQ SCH ×2 (16:30→20:51)
[2020-02-14] MEDS: D5W 1,000 ML with NA BICARB 8.4% 100 MEQ IV SCH ×2 (16:46)
[2020-02-14] MEDS: ACETAMINOPHEN 500 MG TAB PO PRN (16:46)
[2020-02-14] MEDS: HEPARIN 5000 UNIT/ML 1 ML VIAL SQ SCH (17:22)
[2020-02-14 19:53] LABS: Potassium 3.8 mmol/L (3.5-5.1)
[2020-02-14] MEDS ORDERED: PHENAZOPYRIDINE 100MG TAB PO SCH (21:00)
[2020-02-15] MEDS: HEPARIN 5000 UNIT/ML 1 ML VIAL SQ SCH ×3 (00:13→17:24)
[2020-02-15] MEDS: D5W 1,000 ML with NA BICARB 8.4% 100 MEQ IV SCH ×2 (01:37)
[2020-02-15] MEDS: LEVOTHYROXINE SOD 0.088 MG TAB PO SCH (05:54)
[2020-02-15 06:20] LABS: Magnesium 2.9 mg/dL (1.8-2.4); Phosphorus 4.7 mg/dL (2.5-4.9); Potassium 3.1 mmol/L (3.5-5.1)
[2020-02-15 06:29] LABS: Absolute Lymphocytes (CBC) 2.7 K/uL (0.7-4.9); Basophils % 0.2 % (0-1.3); Hematocrit 36.4 % (36.0-45.0); Lymphocytes % 31.4 % (15.3-44.8); MPV 9.7 fL (7.6-11.3); RBC Red Blood Cell Count 4.39 M/uL (3.86-4.86)
[2020-02-15] MEDS: INSULIN -REGULAR HUMAN 50 UNIT/0.5 ML ML SQ SCH ×4 (07:30→21:00)
[2020-02-15] MEDS ORDERED: POTASSIUM CL SA 10 MEQ TAB PO ONE (08:21)
[2020-02-15] MEDS: HOME MED 1 EA UNK (Cyclosporine [Restasis] 1 DROP) EACH EYE SCH ×2 (09:00→21:06)
[2020-02-15] MEDS ORDERED: CEFTRIAXONE 1 GM/NS 50 ML 1 GM/50 ML BAG IV SCH (09:00)
[2020-02-15] MEDS: NA CHLORIDE 0.9% 1,000 ML IV SCH ×2 (09:25→15:49)
[2020-02-15] MEDS: METOPROLOL TAR 50 MG TAB PO SCH (09:38)
[2020-02-15] MEDS: CEFTRIAXONE/SWI 1gm 1 GM/10 ML SYR IV SCH (09:39)
[2020-02-15] MEDS: ACETAMINOPHEN 500 MG TAB PO PRN (09:46)
[2020-02-15] MEDS ORDERED: PNEUMOCOCCAL VACCINE 0.5 ML IMVAC ONE (10:00)
--- NOTE | 2020-02-15 11:50 | P.PN ---
Subjective Date of Service: 02/15/20 Chief Complaint: BAYRON Patient complaining of significant dysuria and increased urinary frequency. She also has anorexia. Physical Examination - Vital Signs Temperature: 96.6 F Blood Pressure: 133/59 Pulse: 92 Respirations: 18 Pulse Ox (%): 99 - Physical Exam General: Alert, In no apparent distress, Other (Frail-appearing.) Neck: Supple Respiratory: Clear to auscultation bilaterally, Normal air movement Cardiovascular: No edema, Regular rate/rhythm, Normal S1 S2 Gastrointestinal: Normal bowel sounds, Soft and benign Musculoskeletal: No swelling, No erythema Neurological: Other (No focal deficits) - Studies Laboratory Data (last 24 hrs) 02/14/20 09:39: Uric Acid 13.6 H Assessment And Plan - Current Problems (Diagnosis) (1) Acute cystitis without hematuria Current Visit: Yes Status: Acute (2) Acute renal failure Current Visit: Yes Status: Acute (3) Diabetes mellitus Current Visit: Yes Status: Acute (4) Hypertension Current Visit: Yes Status: Acute (5) Metabolic acidosis Current Visit: Yes Status: Acute (6) Hyperkalemia Current Visit: Yes Status: Acute - Plan Discontinue bicarb drip. Patient placed on IV normal saline to correct hyponatremia and also to hydrate. Urine culture growing Gram negative rods. Blood culture: No growth to date Continue IV Rocephin for UTI Patient to be seen by nephrology. Monitor renal function Follow urine culture Insulin sliding scale for glucose management. Hyperkalemia resolved. Patient is not hypokalemic Monitor renal function daily. Replete electrolytes as needed.
[2020-02-15] MEDS ORDERED: POTASSIUM 25 MEQ EFFERV TAB PO ONE (16:00)
--- NOTE | 2020-02-15 16:44 | CON ---
Date of Consultation: 02/14/2020 Chief Complaint: Acute kidney injury with severe hyperazotemia. Patient has underlying chronic kidn ey stage 3. History Of Present Illness: Patient was found to have hyperazotemia, is admitted to the hospital for IV fluids, acute kidney injury. Review of previous medical records showed history of chronic kidney disease. Baseline creatinine was 1.4. Back in October 2018, GFR was 52, and on arrival to the hospital , the patient had blood work done, which revealed sodium 130, potassium 5.6, chloride 99, CO2 15, BUN , creatinine 4.50. Subsequently, blood work was obtained and showed some improvement with IV fluids. Sodium 135, potassium 3.8, chloride 103, CO2 18, BUN , creatinine , calcium 8.3. Patient has multiple medical problems. She has history of diabetes mellitus, hypertens ion, diabetic kidney disease. She came to the hospital because of generalized weakness, poor p.o. in take. She had nausea and vomiting, although there was no hematemesis. She had some diarrhea. She w as found to have hyponatremia and hyperkalemia. Urinalysis suggests presence of UTI. CT scan of the abdomen and pelvis showed thickened urinary bladder. Patient is admitted for management of IV fluid s and the treatment for acute kidney injury. Review of Systems: Denies complaints. The patient cannot provide review of systems. She is lethargic. Past Medical History: Hypertension, diabetes mellitus type 2, hyperlipidemia, hypothyroidism, kidney disease stage 3. Family History: No history of kidney disease. Social History: No tobacco. No alcohol. No illicit drugs. Physical Examination: General: Not in acute distress. Eyes: Anicteric. Sclerae EOMI. Ears, Nose, mouth and Throat: Oral mucosa moist. No pallor. Neck: Supple. No bruits. Lungs: Diminished breath sounds at bases. Heart: S1, S2. Abdomen: Soft, benign. Extremities: No edema. Laboratory Data: Uric acid 13.3. WBC 9.2, hemoglobin 14.2, hematocrit 40.7, platelet count is 268. Impression And Plan: 1.Acute kidney injury. Electrolytes are abnormal. Patient has hyponatremia of mild degree. 2.Hyperkalemia, potassium is 5.3. There is mild metabolic acidosis present. Patient is started on bicarbonate drip. Adjust bicarbonate drip according to electrolytes. 3.Acute cystitis without hematuria. Continue antibiotics. Acute kidney failure on chronic kidney d isease accelerated by hypovolemia due to diarrhea, fluid loss and encourage fluid intake. 4.Metabolic acidosis, multifactorial. Continue bicarbonate. Adjust treatment according to lab work . 5.Monitor renal function, fluid balance, and advance fluid IV, hydration accordingly. EB/MODL Voice ID: [id number] Report ID: [id number]
[2020-02-15] MEDS ORDERED: TRAVOPROST 0.004% OPTH SCH (21:00)
[2020-02-15] MEDS ORDERED: HOME MED 1 EA UNK (Simvastatin [Simvastatin] 20 MG) PO SCH (21:00)
[2020-02-15] MEDS ORDERED: OPTH OPTH SCH (21:00)
[2020-02-15] MEDS: GLUCERNA SHAKE 237 ML CAN PO SCH (21:04)
[2020-02-15] MEDS: ATORVASTATIN 10 MG TAB PO SCH (21:04)
[2020-02-16] MEDS: HEPARIN 5000 UNIT/ML 1 ML VIAL SQ SCH ×3 (01:17→17:00)
[2020-02-16] MEDS: NACHLORIDE 0.45% 1,000 ML IV SCH ×2 (01:28→08:55)
[2020-02-16 04:46] LABS: Absolute Lymphocytes (CBC) 1.8 K/uL (0.7-4.9); Basophils % 0.3 % (0-1.3); Hematocrit 30.3 % (36.0-45.0); Lymphocytes % 40.7 % (15.3-44.8); MPV 9.8 fL (7.6-11.3); RBC Red Blood Cell Count 3.69 M/uL (3.86-4.86)
--- NOTE | 2020-02-16 04:53 | PN ---
Date of Progress Note: 02/15/2020 Chief Complaint: Acute kidney injury, severe, with prerenal azotemia, nonoliguric acute tubular necr osis. History Of Present Illness: The patient presented to the hospital because of generalized weakness. She has chronic kidney disease stage 3. Baseline creatinine level 1.4 back in October 2018, GFR was 52. On arrival to the hospital, the patient was found to have hyperkalemia, potassium of 5.6; hyponatrem ia, sodium of 130; and BUN was over 100. The patient today is feeling better. She received IV fluid s to control volume depletion and treat acute kidney injury. Renal function has not improved signifi cantly, although azotemia has improved somewhat. The patient does not have uremic symptomatology. M etabolic acidosis is resolving. IV fluids were switched from sodium bicarbonate drip to normal salin e drip. Hyponatremia and hyperkalemia were treated with IV fluids. The patient had urinalysis done which was suggestive of urinary tract infection. CT scan of the abdomen and pelvis showed thickening of the bladder and the patient is on antibiotics. Review of Systems: The patient denies PND or orthopnea. Physical Examination: Lungs: Diminished breath sounds at bases. Heart: S1 and S2. Abdomen: Soft, benign. Extremities: Minimal edema. Diagnostic Studies: Hemoglobin 13.2, WBC 8.7, platelet count 218,000. Sodium 138, potassium 3.1, ch loride 102, CO2 of 26, BUN 115, creatinine 0.32, calcium 8.1, phosphorus 4.7, magnesium 2.9. Impression And Plan: 1.Acute kidney injury, nonoliguric. The patient is responding to IV fluids. 2.Hypokalemia. The patient received replacement. 3.Hyponatremia. Plan is to change normal saline to half-normal saline. 4.The patient had diarrhea workup per primary team. 5.Chronic kidney disease. Avoid nephrotoxic medication. 6.Hypertension. Blood pressure controlled and adjust medication as needed. EB/MODL Voice ID: [id number] Report ID: [id number]
[2020-02-16 04:54] LABS: Potassium 3.4 mmol/L (3.5-5.1)
[2020-02-16] MEDS: LEVOTHYROXINE SOD 0.088 MG TAB PO SCH (06:34)
[2020-02-16] MEDS: INSULIN -REGULAR HUMAN 50 UNIT/0.5 ML ML SQ SCH ×4 (07:30→20:26)
[2020-02-16] MEDS: METOPROLOL TAR 50 MG TAB PO SCH (08:53)
[2020-02-16] MEDS: CEFTRIAXONE/SWI 1gm 1 GM/10 ML SYR IV SCH (08:53)
[2020-02-16] MEDS: GLUCERNA SHAKE 237 ML CAN PO SCH ×2 (08:54→20:18)
[2020-02-16] MEDS: HOME MED 1 EA UNK (Cyclosporine [Restasis] 1 DROP) EACH EYE SCH ×2 (09:00→20:25)
[2020-02-16] MEDS ORDERED: POTASSIUM PHOS IN 0.9 % NACL 15 MMOL/250 ML BAG IV ONE (09:00)
[2020-02-16] MEDS ORDERED: NA CHLORIDE 0.9% 500 ML IV SCH (12:00)
[2020-02-16 13:56] LABS: C.diff Antigen/Toxin Ag neg : Tox neg (NEG : NEG)
[2020-02-16] MEDS ORDERED: KCL 20 MEQ/100 mL IVPB 20 MEQ/100 ML BAG IV SCH (15:00)
[2020-02-16] MEDS: CIPROFLOXACIN 400mg IV 400 MG/200 ML BAG IV SCH ×2 (15:39→20:15)
--- NOTE | 2020-02-16 17:08 | P.PN ---
Subjective Date of Service: 02/16/20 Chief Complaint: BAYRON Subjective: Improving (Feeling better, reports no abdominal pain/pelvic pain, no dysuria) Physical Examination - Vital Signs Temperature: 97.5 F Blood Pressure: 139/63 Pulse: 52 Respirations: 16 Pulse Ox (%): 100 - Physical Exam General: Alert, In no apparent distress HEENT: EOMI, Sclerae nonicteric Neck: Supple, JVD not distended Respiratory: Clear to auscultation bilaterally, Normal air movement Cardiovascular: Regular rate/rhythm, Normal S1 S2 Gastrointestinal: Soft and benign, Non-distended Integumentary: No rashes Neurological: Normal speech, Normal affect - Studies Microbiology Data (last 24 hrs): 02/14/20 10:53 Clean Catch Urine Auberry Count - Final >100,000 CFU/ML. 02/14/20 10:53 Clean Catch Urine - Final Klebsiella Pneumoniae Assessment & Plan Physician Review Additional Text: Acute cystitis without hematuria Acute renal failure Metabolic acidosis Hyponatremia Diabetes mellitus Hypertension Hyperkalemia Acute cystitis without hematuria Acute renal failure Metabolic acidosis, resolved Hyponatremia, resolved -initially treated with bicarb drip -IV normal saline for rehydration for hyponatremia -IV Rocephin for UTI, cultures back today with Klebsiella, reviewed sensitivities. Switched to Cipro -Creatinine: 4.5 on admission, down to 1.13 -nephrology consulted, appreciate assistance Hypokalemia Hypophosphatemia -repleted, continue to monitor Diabetes mellitus -insulin sliding scale, Accu-Cheks ACHS Hypertension -hold home lisinopril in setting of BAYRON Dispo: Anticipate discharge in the next 24 hr, likely tomorrow Time Spent Managing Pts Care (In Minutes): 36
[2020-02-16] MEDS: ATORVASTATIN 10 MG TAB PO SCH (20:14)
--- NOTE | 2020-02-16 21:48 | PN ---
Date of Progress Note: 02/16/2020 Subjective: The patient was admitted with acute kidney injury secondary to prerenal. The patient's after hydration kidney function started to improving significantly. Upon arrival to the hospital, creatinine was 4.5. Creatinine is currently trending down. The patient had good urine output. Physical Examination: Vital Signs: When I saw the patient; blood pressure 139/63, pulse of 52, afebrile. The patient had good urine output of 600. Chest: Decreased air entry at bilateral base. Heart: S1, S2. Regular. Systolic murmur. Abdomen: Soft, nontender. Extremities: No edema. Laboratory Data: Sodium 143, potassium 3.4, bicarb 27, BUN 53, creatinine 1.1, GFR 37, calcium 7.7, phosphorus 2, albumin of 3. WBC 4.4, H and H 11.3/30.3, platelets 175. Current Medications: The patient on include; 1. Ciprofloxacin. 2. Heparin. 3. Atorvastatin. 4. Metoprolol 75 b.i.d. 5. Levothyroxine. 6. KCl. Assessment And Plan: 1. Acute kidney injury secondary to prerenal, recovered, resoled. 2. Hypokalemia, hypomagnesemia, hypophosphatemia. We will supplement. 3. Hypertension, controlled, optimal. Continue current medication. 4. Urinary tract infection secondary to Klebsiella pneumonia. Continue current antibiotic. The patient can be switched to Augmentin PO to be switched to oral as the patient is stable currently. time spent to coordinate the care , discussing with other team meember the care , face to face with the patient and discussed the plan with patient , placing order 35 min SUKUMAR Voice ID: [id number] Report ID: [id number] [facility]
[2020-02-16] MEDS ORDERED: DIPHENOX/ATROP SULF 1 TAB PO ONE (22:21)
[2020-02-17] MEDS: MELATONIN 5 MG TABLET PO PRN ×2 (01:26→23:24)
[2020-02-17] MEDS: HEPARIN 5000 UNIT/ML 1 ML VIAL SQ SCH ×3 (01:27→16:56)
[2020-02-17 04:47] LABS: Albumin 2.9 g/dL (3.4-5.0); Magnesium 1.5 mg/dL (1.8-2.4); Phosphorus 1.6 mg/dL (2.5-4.9); Potassium 3.9 mmol/L (3.5-5.1)
[2020-02-17] MEDS: LEVOTHYROXINE SOD 0.088 MG TAB PO SCH (05:50)
[2020-02-17] MEDS ORDERED: MAGNESIUM SULFATE 1 gm IVPB 1 GM/100 ML BAG IV ONE (05:58)
[2020-02-17] MEDS: INSULIN -REGULAR HUMAN 50 UNIT/0.5 ML ML SQ SCH ×4 (07:30→21:00)
[2020-02-17] MEDS: METOPROLOL TAR 50 MG TAB PO SCH (08:34)
[2020-02-17] MEDS: GLUCERNA SHAKE 237 ML CAN PO SCH ×2 (08:35→20:50)
[2020-02-17] MEDS: CIPROFLOXACIN 400mg IV 400 MG/200 ML BAG IV SCH ×2 (08:35→20:50)
[2020-02-17] MEDS: HOME MED 1 EA UNK (Cyclosporine [Restasis] 1 DROP) EACH EYE SCH ×2 (08:36→20:50)
[2020-02-17] MEDS ORDERED: POTASSIUM PHOS IN 0.9 % NACL 15 MMOL/250 ML BAG IV ONE (09:00)
--- NOTE | 2020-02-17 11:52 | PN ---
Date of Progress Note: 02/17/2020 Subjective: The patient was admitted with UTI, failure to thrive, diarrhea. The patient's after hydration kidney function has been normalized. The patient still has mild diarrhea, poor intake around 25%. Physical Examination: Vital Signs: Blood pressure 141/63, pulse of 76, afebrile. The patient had good urine output. Chest: Clear to auscultation. Heart: S1, S2. Regular. Systolic murmur. Abdomen: Soft, nontender. No guarding or rebound. Extremities: No edema. Neurological: Alert and oriented x3. No focal. Laboratory Data: H and H 11.3/30.3. Sodium 137, potassium 3.9, bicarb 25, BUN 20, creatinine 0.9, calcium 7.5, phosphorus 1.6, magnesium 1.5, albumin 2.9. Current Medications: The patient on are Cipro, atorvastatin, metoprolol 75 b.i.d., levothyroxine. Assessment And Plan: 1. Acute kidney injury secondary to prerenal, recovered, resolved. Normal volume. I will keep holding IV fluids. 2. Hypophosphatemia, hypomagnesemia. We will supplement. 3. Gastroenteritis as by primary. The patient cleared from the renal standpoint for discharge planning. time spent to coordinate the care , discussing with other team meember the care , face to face with the patient and discussed the plan with patient , placing order 35 min SUKUMAR Voice ID: [id number] Report ID: [id number] [facility]
[2020-02-17] MEDS: ACETAMINOPHEN 500 MG TAB PO PRN (12:57)
--- NOTE | 2020-02-17 14:02 | P.PN ---
Subjective Date of Service: 02/17/20 Chief Complaint: BAYRON Subjective: Improving (feeling better, but continues with diarrhea - 3 episodes overnight. Nursing reports pt eating only ~25% of food, had some nausea /vomiting this morning. required straight cath overnight due to urinary retention) Physical Examination - Vital Signs Temperature: 97.3 F Blood Pressure: 146/66 Pulse: 56 Respirations: 16 Pulse Ox (%): 98 - Physical Exam General: Alert, In no apparent distress, Oriented x3 HEENT: Mucous membr. moist/pink Neck: No LAD Respiratory: Clear to auscultation bilaterally, Normal air movement Cardiovascular: Regular rate/rhythm, Normal S1 S2 Gastrointestinal: Soft and benign, Non-distended, No tenderness Neurological: Normal speech, Normal affect Assessment & Plan Physician Review Additional Text: Acute cystitis without hematuria Acute renal failure Metabolic acidosis Hyponatremia Diarrhea Diabetes mellitus Hypertension Hyperkalemia Acute cystitis without hematuria Acute renal failure Metabolic acidosis, resolved Hyponatremia, resolved Diarrhea -initially treated with bicarb drip -IV normal saline for rehydration for hyponatremia -initially received IV Rocephin for UTI, Cx: Klebsiella, reviewed sensitivities. Switched to Cipro on 02/15 -Creatinine: 4.5 on admission, down to 1.13 -nephrology consulted, appreciate assistance -will add immodium to help with diarrhea Hypokalemia Hypophosphatemia -repleted, continue to monitor Diabetes mellitus -insulin sliding scale, Accu-Cheks ACHS Hypertension -hold home lisinopril in setting of BAYRON Dispo: Anticipate discharge in the next 24 hr, likely tomorrow spoke with , main concern for presentation to ED was no appetite and diarrhea Time Spent Managing Pts Care (In Minutes): 35
[2020-02-17] MEDS: LOPERAMIDE HCL 2 MG CAPSULE PO PRN ×2 (16:56→23:24)
[2020-02-17] MEDS: ATORVASTATIN 10 MG TAB PO SCH (20:50)
[2020-02-18] MEDS: HEPARIN 5000 UNIT/ML 1 ML VIAL SQ SCH ×2 (00:39→09:29)
[2020-02-18 05:55] LABS: Albumin 2.9 g/dL (3.4-5.0); Magnesium 1.8 mg/dL (1.8-2.4); Phosphorus 1.6 mg/dL (2.5-4.9); Potassium 4.2 mmol/L (3.5-5.1)
[2020-02-18] MEDS: LEVOTHYROXINE SOD 0.088 MG TAB PO SCH (05:55)
[2020-02-18] MEDS ORDERED: MAGNESIUM SULFATE 1 gm IVPB 1 GM/100 ML BAG IV ONE (06:22)
[2020-02-18] MEDS: INSULIN -REGULAR HUMAN 50 UNIT/0.5 ML ML SQ SCH ×2 (07:30→11:30)
[2020-02-18 08:41] VITALS: BP 169/75; TEMP 97.8
[2020-02-18 08:47] VITALS: O2SAT 98
[2020-02-18] MEDS: HOME MED 1 EA UNK (Cyclosporine [Restasis] 1 DROP) EACH EYE SCH (09:00)
[2020-02-18] MEDS: CIPROFLOXACIN 400mg IV 400 MG/200 ML BAG IV SCH (09:28)
[2020-02-18] MEDS: GLUCERNA SHAKE 237 ML CAN PO SCH (09:28)
[2020-02-18] MEDS: POTASS/SODIUM PHOSPHATE 1 PKT POWD.PACK PO SCH ×3 (09:29→10:57)
[2020-02-18] MEDS: METOPROLOL TAR 50 MG TAB PO SCH (09:29)
[2020-02-18] MEDS ORDERED: Magnesium Sulfate 2gm IVPB 2 G/50 ML BAG IV ONE (10:05)
--- NOTE | 2020-02-18 11:57 | PN ---
Date of Progress Note: 02/18/2020 Subjective: The patient was admitted with acute kidney injury. The patient had found to have UTI. After hydration kidney function has been stabilized, but her electrolyte has been depleted. Physical Examination: Vital Signs: Blood pressure 169/75, pulse of 84, afebrile. The patient had good urine output. Chest: Clear to auscultation. Heart: S1, S2. Regular. Abdomen: Soft, nontender. Extremities: No edema. Neurologic: Alert. No focality. Laboratory Data: H and H 11.3/30.3. Sodium 141, potassium 4.2, bicarb 26, BUN 9, creatinine 0.9, ca lcium 8.3, phos 1.6, magnesium 1.8. Current Medications: Include: 1.Ciprofloxacin. 2.Metoprolol 75 b.i.d. 3.Loperamide. 4.Levothyroxine. Assessment And Plan: 1.Acute kidney injury secondary to prerenal, resolved. 2.Hypokalemia, resolved. 3.Hypomagnesemia, hypophosphatemia. Given the recurrent depletion, I am going to go ahead and send for urine electrolytes to evaluate if there is any renal tubular wasting and we will monitor the roxana ent. I am going to add for the patient amiloride to have help with the potassium and the magnesium a nd we will follow up. 4.Hypertension, not controlled. We will add amiloride and calcium channel casandra. We will continu e Lopressor. 5.Urinary tract infection secondary to Klebsiella. Start the patient on Cipro. We will follow up with primary. 6.Poor intake. Continue to monitor the patient. SUKUMAR Voice ID: [id number] Report ID: [id number]
--- NOTE | 2020-02-18 18:20 | P.DS ---
Admission Date: 02/14/20 Discharge Date: 02/18/20 Disposition: ROUTINE DISCHARGE Discharge Condition: GOOD Reason for Admission: BAYRON Consultations: Nephrology - Dr. Malhotra, Dr. Michael Procedures: CXR: No acute intrathoracic process suspected CT abdomen: No urinary tract sensor obstructive uropathy. Urinary bladder wall thickening is noted, suggestive correlation for the possibility of urinary tract infection. Problem list Acute cystitis without hematuria Acute renal failure Metabolic acidosis Hyponatremia Diarrhea Diabetes mellitus Hypertension Hyperkalemia Brief History of Present Illness: 74-year-old woman with a history of hypertension and diabetes mellitus type 2 presented to the emergency department with a complaint of generalized weakness, intermittent diarrhea with alternating constipation and poor oral intake. states patient has not been eating well over the past 5 days. Patient denies any NSAID use. She denied any vomiting. Blood work showed acute renal failure with creatinine up to 4.5 and BUN up to 150. She has hyperkalemia. She has no leukocytosis. UA suggest the presence of UTI. CT abdomen and pelvis jose ws thickened urinary bladder wall suggestive of UTI. Nephrology contacted by the ED physician was now recommending bicarb drip. Patient admitted for further management. Hospital Course: Patient was initially treated for her metabolic acidosis with a bicarb drip. This significantly improved and bicarb drip was discontinued. She continued with IV fluid for rehydration and to help correct her hyponatremia. Her cystitis was initially treated with Rocephin, an culture came back positive for Klebsiella. Sensitivities were reviewed and patient was transitioned to cipr ofloxacin on 02/15. Her a KI was likely in part due to prerenal etiology, and had significant improvement with the above treatment. Her creatinine on admission was 4.5 came down to 1.13. Of note, her lisinopril was held in the setting of BAYRON and during her hospitalization she had low-normal blood pressure. This was discontinued on discharge, she is to follow up with her PCP. On day of discharge, she still continued to have some diarrhea/loose stools but this was significantly improved compared to her presentation to the ED. Imodium seemed to help. On the day of discharge she had regained her appetite and was eating much better. Vital Signs/Physical Exam: Temp Pulse Resp BP Pulse Ox 97.8 F 84 16 169/75 H 99 02/18/20 08:00 02/18/20 09:29 02/18/20 08:00 02/18/20 09:29 02/18/20 08:00 General: Alert, In no apparent distress HEENT: Mucous membr. moist/pink Neck: No LAD Respiratory: Clear to auscultation bilaterally, Normal air movement Cardiovascular: Regular rate/rhythm, Normal S1 S2 Gastrointestinal: Soft and benign, Non-distended, No tenderness Musculoskeletal: No erythema, No tenderness Integumentary: No rashes Neurological: Normal speech, Normal affect Laboratory Data at Discharge: WBC 4.4 K/uL (4.3-10.9) D 02/16/20 04:00 Hgb 11.3 g/dL (12.0-15.0) L 02/16/20 04:00 Hct 30.3 % (36.0-45.0) L D 02/16/20 04:00 Plt Count 175 K/uL (152-406) 02/16/20 04:00 Sodium 141 mmol/L (136-145) 02/18/20 05:06 Potassium 4.2 mmol/L (3.5-5.1) 02/18/20 05:06 BUN 9 mg/dL (7-18) 02/18/20 05:06 Creatinine 0.90 mg/dL (0.55-1.3) 02/18/20 05:06 Glucose 112 mg/dL (74-106) H 02/18/20 05:06 Uric Acid 13.6 mg/dL (2.6-6.0) H 02/14/20 09:39 Phosphorus 1.6 mg/dL (2.5-4.9) L 02/18/20 05:06 Magnesium 1.8 mg/dL (1.8-2.4) 02/18/20 05:06 Total Bilirubin 0.3 mg/dL (0.2-1.0) 02/14/20 09:39 AST 24 U/L (15-37) 02/14/20 09:39 ALT 18 U/L (12-78) 02/14/20 09:39 Alkaline Phosphatase 78 U/L (45-117) 02/14/20 09:39 Lipase 461 U/L (73-393) H 02/14/20 09:39 Home Medications: Cyclosporine [Restasis] 1 drop EACH EYE BID 02/14/20 Levothyroxine [Synthroid*] 1 tab PO 0630 02/14/20 Metoprolol Tartrate [Lopressor*] 75 mg PO DAILY 02/14/20 Simvastatin 20 mg PO BEDTIME 02/14/20 Travoprost [Travatan Z*] 1 drop EACH EYE BEDTIME 02/14/20 Liraglutide [Victoza 2-Brian] 0.6 ml SQ BEDTIME 02/16/20 Amlodipine Besylate [Norvasc] 1 tab PO DAILY 30 Days #30 tablet 02/18/20 Ciprofloxacin HCl 500 mg PO BID 3 Days #6 tablet 02/18/20 Loperamide [Imodium*] 1 tab PO Q4H PRN 5 Days #30 cap 02/18/20 New Medications: Ciprofloxacin HCl 500 mg PO BID 3 Days #6 tablet Loperamide [Imodium*] 1 tab PO Q4H PRN 5 Days #30 cap PRN Reason: Diarrhea Amlodipine Besylate [Norvasc] 1 tab PO DAILY 30 Days #30 tablet Patient Discharge Instructions: follow up with PCP within 1-2 weeks. follow up with nephrology in ~2 weeks. Medications. -stop taking lisinopril. -start taking amlodipine 2.5mg daily for high blood pressure. -immodium as prescribed for diarrhea Diet: ADA Activity: Ad royce Followup: Elizabeth Michael MD [ACTIVE - CAN ADMIT] - (Call to make an appointment. ) Time spent managing pt's care (in minutes): 35
[2020-02-19] MEDS ORDERED: AMLODIPINE 5 MG TAB PO SCH (09:00)
[2020-02-19] MEDS ORDERED: AMILORIDE HCL 5 MG TABLET PO SCH (09:00)
== END 2020-02-18 11:41 | disposition home or self-care (01) | DRG 683 ==
LOC: ER 09:14 → ERHOLD 11:52 → 2ND 14:16
PROVIDERS: ADMIT Internal Medicine; ATTEND Hospitalist
DX: N17.9 Acute kidney failure, unspecified (principal); N30.00 Acute cystitis without hematuria; E87.2 Acidosis; E87.1 Hypo-osmolality and hyponatremia; K59.00 Constipation, unspecified; E87.5 Hyperkalemia; E78.5 Hyperlipidemia, unspecified; N18.3 Chronic kidney disease, stage 3 (moderate); I12.9 Hypertensive chronic kidney disease with stage 1 through stage 4 chronic kidney disease, or unspecified chronic kidney disease; E11.22 Type 2 diabetes mellitus with diabetic chronic kidney disease; E87.6 Hypokalemia; B96.1 Klebsiella pneumoniae [K. pneumoniae] as the cause of diseases classified elsewhere; E83.39 Other disorders of phosphorus metabolism; E83.42 Hypomagnesemia; K52.9 Noninfective gastroenteritis and colitis, unspecified; R63.0 Anorexia; Z68.26 Body mass index [BMI] 26.0-26.9, adult; Z20.828 Contact with and (suspected) exposure to other viral communicable diseases
CPT/HCPCS: 36415; 71045; 74176; 76377; 80048; 80069; 80076; 81003; 81015; 82435; 82550; 82947; 83690; 83735; 83880; 83935; 84100; 84132; 84300; 84484; 84550; 85025; 87040; 87077; 87086; 87088; 87186; 87324; 87449; 90471; 90670; 93005; 94760; 96361; 96374; 96375; 97116; 97161; 97530; 99285; J0696; J0744; J1644; J3475; J3480; J7030; J7040; J7799; U0002

== ENCOUNTER 2020-02-19 07:54 | Emergency (ER) | payer OTHER, BC ==
[2020-02-19 09:17] LABS: Potassium 4.2 mmol/L (3.5-5.1)
[2020-02-19 09:37] LABS: Urine Blood NEGATIVE (NEG); Urine Glucose NEGATIVE (NEG); Urine Protein NEGATIVE (NEG); Urine Specific Gravity 1.025 (1.005-1.030); Urine pH 5.5 (5.0-7.0)
[2020-02-19 09:40] LABS: Absolute Lymphocytes (CBC) 1.5 K/uL (0.7-4.9); Basophils % 0.3 % (0-1.3); Hematocrit 31.5 % (36.0-45.0); Lymphocytes % 36.9 % (15.3-44.8); RBC Red Blood Cell Count 3.68 M/uL (3.86-4.86)
[2020-02-19 09:43] LABS: Urine Amorphous Sediment TRACE /HPF (NONE SEEN); Urine Bacteria <20 /HPF (<20); Urine Culture Reflex Order NOT NEEDED; Urine RBC NONE SEEN /HPF (NONE SEEN)
--- NOTE | 2020-02-19 10:24 | ER ---
Nurse's Notes [facility] Name: Betina Ward Age: 74 yrs Sex: Female : 1945 Arrival Date: 02/19/2020 Time: 07:55 Bed 14 Private MD: Karthik Gunter H Diagnosis: Retention of urine Presentation: 02/18 08:00 Chief complaint: Patient states: was d/c from floor yesterday for renal failure, has iw not been able to urinate since she got home, has a full bladder but can't urinate. Coronavirus screen: At this time, the client does not indicate any symptoms associated with coronavirus-19. Ebola Screen: Patient negative for fever greater than or equal to 101.5 degrees Fahrenheit, and additional compatible Ebola Virus Disease symptoms Patient denies exposure to infectious person. Patient denies travel to an Ebola-affected area in the 21 days before illness onset. No symptoms or risks identified at this time. Initial Sepsis Screen: Does the patient meet any 2 criteria? No. Patient's initial sepsis screen is negative. Does the patient have a suspected source of infection? No. Patient's initial sepsis screen is negative. Risk Assessment: Do you want to hurt yourself or someone else? Patient reports no desire to harm self or others. Onset of symptoms was February 18, 2020. 08:00 Method Of Arrival: Ambulatory iw 08:00 Acuity: RIANA 3 iw Historical: - Allergies: 08:04 Latex, Natural Rubber; iw - Home Meds: 08:04 amlodipine 5 mg tab 1 tab once daily [Active]; Cipro 500 mg Oral tab 1 tab every 12 iw hours [Active]; Restasis 0.05 % ophthalmic dpet 1 drop 2 times per day [Active]; levothyroxine 88 mcg tab 1 tab once daily [Active]; Victoza 2-Brian 0.6 mg/0.1 mL (18 mg/3 mL) subcutaneous pnij nightly [Active]; metoprolol tartrate 75 mg Oral tab once daily [Active]; simvastatin 20 mg Oral tab 1 tab once daily [Active]; travoprost ophthalmic ophthalmic 1 drop once daily [Active]; - PMHx: 08:04 Diabetes - IDDM; Glaucoma; Hyperlipidemia; Hypertension; Hypothyroidism; iw - PSHx: 08:04 None; iw - Immunization history:: Adult Immunizations up to date. - Social history:: Smoking status: Patient denies any tobacco usage or history of. Screenin:25 Abuse screen: Denies threats or abuse. Nutritional screening: No deficits noted. aa5 Tuberculosis screening: No symptoms or risk factors identified. Fall Risk None identified. Assessment: 08:20 General: Appears comfortable, Behavior is calm, cooperative. Pain: Denies pain. Neuro: aa5 Level of Consciousness is awake, alert, obeys commands, Pt intermittently confused . Oriented to person, place, time, situation. Cardiovascular: Heart tones S1 S2 present Rhythm is regular. Respiratory: Airway is patent Respiratory effort is even, unlabored, Respiratory pattern is regular, symmetrical. GI: Abdomen is round Bowel sounds present X 4 quads. Abd is soft and non tender X 4 quads. : Reports inability to void, since yesterday, pt reports suprapubic pressure. EENT: No signs and/or symptoms were reported regarding the EENT system. Derm: Skin is pink, warm \T\ dry. Musculoskeletal: Range of motion: intact in all extremities. 09:05 Reassessment: Bladder scan pre-void: 434mls and post-void: 348mls. ENDOCRINOLOGY TEACHER was notified. . aa5 09:30 Reassessment: Patient is alert, oriented x 3, equal unlabored respirations, skin aa5 warm/dry/pink. 11:10 Reassessment: Patient is alert, oriented x 3, equal unlabored respirations, skin aa5 warm/dry/pink. Vital Signs: 08:00 BP 155 / 66; Pulse 85; Resp 16; Temp 98.4; Pulse Ox 100% on R/A; iw 09:30 BP 134 / 55; Pulse 81; Resp 18 S; Temp 98.0(TE); Pulse Ox 100% on R/A; aa5 11:00 BP 146 / 74; Pulse 89; Resp 16 S; Pulse Ox 100% on R/A; Pain 0/10; aa5 ED Course: 07:55 Patient arrived in ED. as 07:55 Karthik Gunter DO is Private Physician. as 08:02 Triage completed. iw 08:03 Corina Padilla FNP-C is [facility]. kb 08:03 Ruben Moreau MD is Attending Physician. kb 08:05 Arm band placed on. 08:11 Padma Ernandez, RN is Primary Nurse. aa5 08:20 Patient has correct armband on for positive identification. Placed in gown. Bed in low aa5 position. Call light in reach. Side rails up X2. 08:41 Initial lab(s) drawn, by me, sent to lab. Inserted saline lock: 20 gauge in right 3 antecubital area, using aseptic technique. 09:08 Rubin cath inserted, using sterile technique, 16 Fr., by me, balloon inflated, to 3 gravity drainage, urine specimen collected. returned clear yellow urine. Patient tolerated well. 09:26 Lab(s) recollected, by me, sent to lab. [facility] 10:23 Ra Quan MD is Referral Physician. kb 11:10 No provider procedures requiring assistance completed. IV discontinued, intact, aa5 bleeding controlled, No redness/swelling at site. Pressure dressing applied. Administered Medications: No medications were administered Output: 09:30 Urine: 500ml (Rubin); Total: 500ml. aa5 Outcome: 10:23 Discharge ordered by . kb 11:10 Discharged to home via wheelchair, with Rubin catheter in place. aa5 11:10 Condition: stable 11:10 Discharge instructions given to patient, significant other, Instructed on discharge instructions, follow up and referral plans. Rubin catheter care Demonstrated understanding of instructions, follow-up care, and Rubin catheter care 11:18 Patient left the ED. iw Signatures: Corina Padilla, HOISTMAN-C HOISTMAN-Antonia Reed as Jackelin Richards RN RN Padma Ernandez, TONE RN aa5 Rut Huitron [facility] Corrections: (The following items were deleted from the chart) 11:25 11:10 Reassessment: Patient is alert, oriented x 3, equal unlabored respirations, skin aa5 warm/dry/pink. aa5
--- NOTE | 2020-02-19 10:24 | EDPHYS ---
Physician Documentation [facility] Name: Betina Ward Age: 74 yrs Sex: Female : 1945 Arrival Date: 02/19/2020 Time: 07:55 Bed 14 Private MD: Karthik Gunter H ED Physician Ruben Moreau HPI: 02/18 09:44 This 74 yrs old Female presents to ER via Ambulatory with complaints of kb Urinary Retention. 09:44 The patient presents with urinary symptoms, urinary retention. Onset: The kb symptoms/episode began/occurred yesterday. Modifying factors: The symptoms are alleviated by nothing, the symptoms are aggravated by nothing. Associated signs and symptoms: Pertinent positives: urinary retention. Severity of symptoms: At their worst the symptoms were moderate, in the emergency department the symptoms are unchanged. The patient has not experienced similar symptoms in the past. The patient has been recently been admitted at [facility]. Pt reports she was discharged from the floor yesterday afternoon and hasn't been able to urinate since then. . Historical: - Allergies: 08:04 Latex, Natural Rubber; iw - Home Meds: 08:04 amlodipine 5 mg tab 1 tab once daily [Active]; Cipro 500 mg Oral tab 1 tab every 12 iw hours [Active]; Restasis 0.05 % ophthalmic dpet 1 drop 2 times per day [Active]; levothyroxine 88 mcg tab 1 tab once daily [Active]; Victoza 2-Brian 0.6 mg/0.1 mL (18 mg/3 mL) subcutaneous pnij nightly [Active]; metoprolol tartrate 75 mg Oral tab once daily [Active]; simvastatin 20 mg Oral tab 1 tab once daily [Active]; travoprost ophthalmic ophthalmic 1 drop once daily [Active]; - PMHx: 08:04 Diabetes - IDDM; Glaucoma; Hyperlipidemia; Hypertension; Hypothyroidism; iw - PSHx: 08:04 None; iw - Immunization history:: Adult Immunizations up to date. - Social history:: Smoking status: Patient denies any tobacco usage or history of. ROS: 09:43 Constitutional: Negative for fever, chills, and weight loss, Cardiovascular: Negative kb for chest pain, palpitations, and edema, Respiratory: Negative for shortness of breath, cough, wheezing, and pleuritic chest pain, Abdomen/GI: Negative for abdominal pain, nausea, vomiting, diarrhea, and constipation, Back: Negative for injury and pain, MS/Extremity: Negative for injury and deformity, Skin: Negative for injury, rash, and discoloration, Neuro: Negative for headache, weakness, numbness, tingling, and seizure. 09:43 : Positive for difficulty urinating. Exam: 09:43 Constitutional: This is a well developed, well nourished patient who is awake, alert, kb and in no acute distress. Head/Face: Normocephalic, atraumatic. Chest/axilla: Normal chest wall appearance and motion. Nontender with no deformity. No lesions are appreciated. Cardiovascular: Regular rate and rhythm with a normal S1 and S2. No gallops, murmurs, or rubs. Normal PMI, no JVD. No pulse deficits. Respiratory: Lungs have equal breath sounds bilaterally, clear to auscultation and percussion. No rales, rhonchi or wheezes noted. No increased work of breathing, no retractions or nasal flaring. Abdomen/GI: Soft, non-tender, with normal bowel sounds. No distension or tympany. No guarding or rebound. No evidence of tenderness throughout. Back: No spinal tenderness. No costovertebral tenderness. Full range of motion. Skin: Warm, dry with normal turgor. Normal color with no rashes, no lesions, and no evidence of cellulitis. MS/ Extremity: Pulses equal, no cyanosis. Neurovascular intact. Full, normal range of motion. Neuro: Awake and alert, GCS 15, oriented to person, place, time, and situation. Cranial nerves II-XII grossly intact. Motor strength 5/5 in all extremities. Sensory grossly intact. Cerebellar exam normal. Normal gait. Vital Signs: 08:00 BP 155 / 66; Pulse 85; Resp 16; Temp 98.4; Pulse Ox 100% on R/A; iw 09:30 BP 134 / 55; Pulse 81; Resp 18 S; Temp 98.0(TE); Pulse Ox 100% on R/A; aa5 11:00 BP 146 / 74; Pulse 89; Resp 16 S; Pulse Ox 100% on R/A; Pain 0/10; aa5 MDM: 08:06 Patient medically screened. kb 09:44 Data reviewed: vital signs, nurses notes. Data interpreted: Pulse oximetry: on room air kb is 100 %. Interpretation: normal. 10:21 Counseling: I had a detailed discussion with the patient and/or guardian regarding: the kb historical points, exam findings, and any diagnostic results supporting the discharge/admit diagnosis, lab results, the need for outpatient follow up, a urologist, to return to the emergency department if symptoms worsen or persist or if there are any questions or concerns that arise at home. 02/18 08:06 Order name: Urine Microscopic Only; Complete Time: 09:46 kb 02/18 08:06 Order name: CBC with Diff; Complete Time: 09:46 kb 02/18 08:04 Order name: Bladder Scanner; Complete Time: 08:42 kb 02/18 08:06 Order name: Rubin: place if PVR is >100; Complete Time: 09:11 kb 02/18 08:06 Order name: Basic Metabolic Panel; Complete Time: 09:18 kb 02/18 09:19 Order name: Urine Dipstick--Ancillary (enter results); Complete Time: 09:43 eb 02/18 08:06 Order name: Urine Dipstick-Ancillary (obtain specimen); Complete Time: 09:11 kb 02/18 08:06 Order name: IV Start; Complete Time: 08:42 kb Administered Medications: No medications were administered Disposition: 02/19/20 10:23 Discharged to Home. Impression: Retention of urine. - Condition is Stable. - Discharge Instructions: Acute Urinary Retention, Female, [id number], Rubin Catheter Care, Adult, Uhgi-kz-Taal. - Medication Reconciliation Form, Thank You Letter, Antibiotic Education, Prescription Opioid Use form. - Follow up: Emergency Department; When: As needed; Reason: Worsening of condition. Follow up: Ra Quan MD; When: 2 - 3 days; Reason: Recheck today's complaints. Signatures: Dispatcher [employer] Corina Abernathy FNP-C FNP-Jackelin Tapia RN RN iw Corrections: (The following items were deleted from the chart) 09:44 09:43 Constitutional: This is a well developed, well nourished patient who is awake, kb alert, and in no acute distress. Head/Face: Normocephalic, atraumatic. Chest/axilla: Normal chest wall appearance and motion. Nontender with no deformity. No lesions are appreciated. Cardiovascular: Regular rate and rhythm with a normal S1 and S2. No gallops, murmurs, or rubs. Normal PMI, no JVD. No pulse deficits. Respiratory: Lungs have equal breath sounds bilaterally, clear to auscultation and percussion. No rales, rhonchi or wheezes noted. No increased work of breathing, no retractions or nasal flaring. Abdomen/GI: Soft, non-tender, with normal bowel sounds. No distension or tympany. No guarding or rebound. No evidence of tenderness throughout. Back: No spinal tenderness. No costovertebral tenderness. Full range of motion. Skin: Warm, dry with normal turgor. Normal color with no rashes, no lesions, and no evidence of cellulitis. MS/ Extremity: Pulses equal, no cyanosis. Neurovascular intact. Full, normal range of motion. Neuro: Awake and alert, GCS 15, oriented to person, place, time, and situation. Cranial nerves II-XII grossly intact. Motor strength 5/5 in all extremities. Sensory grossly intact. Cerebellar exam normal. Normal gait. kb 11:18 10:23 02/19/2020 10:23 Discharged to Home. Impression: Retention of urine. Condition is iw Stable. Forms are Medication Reconciliation Form, Thank You Letter, Antibiotic Education, Prescription Opioid Use. Follow up: Emergency Department; When: As needed; Reason: Worsening of condition. Follow up: Ra Quan; When: 2 - 3 days; Reason: Recheck today's complaints. kb
[2020-02-19 17:29] VITALS: BP 155/66; TEMP 98.4; O2SAT 100
== END 2020-02-19 11:18 | disposition home or self-care (01) ==
LOC: ER 07:54
DX: R33.9 Retention of urine, unspecified (principal); I10 Essential (primary) hypertension; E11.9 Type 2 diabetes mellitus without complications; Z79.4 Long term (current) use of insulin; E03.9 Hypothyroidism, unspecified; E78.5 Hyperlipidemia, unspecified; Z91.040 Latex allergy status; Z91.048 Other nonmedicinal substance allergy status
CPT/HCPCS: 36415; 51702; 80048; 81003; 81015; 85025; 99284

== ENCOUNTER 2023-10-23 09:53 | Inpatient (IN) | payer OTHER, BC ==
[2023-10-23 11:21] LABS: AST/SGOT 11 U/L (15-37); Albumin 2.5 g/dL (3.4-5.0); Albumin/Globulin Ratio 0.6 (1.1-1.8); Alkaline Phosphatase 86 U/L (45-117); Anion Gap 10.4 mEq/L (5.0-15.0); BUN Blood Urea Nitrogen 19 mg/dL (7-18); Bicarbonate 26 mEq/L (21-32); Bilirubin Total 0.6 mg/dL (0.2-1.0); Globulin 4.2 g/dL (2.3-3.5); Glomerular Filtration Rate 73 ml/min (=/>90); Glucose Level 137 mg/dL (74-106); Potassium 3.4 mEq/L (3.5-5.1); Protein, Total 6.7 g/dL (6.4-8.2); Sodium Level 132 mEq/L (136-145)
[2023-10-23 11:22] LABS: ALT/SGPT < 14 U/L (13-56)
--- NOTE | 2023-10-23 11:25 | RAD REPORT ---
EXAM DESCRIPTION: RAD - Chest Single View - 10/23/2023 11:15 am CLINICAL HISTORY: AMS COMPARISON: <Comparisons> FINDINGS: Lines: None. Lungs: No evidence of edema or pneumonia. Pleural: No significant pleural effusions or pneumothorax. Cardiac: The heart size is within normal limits. Mediastinum: Within normal limits. Bones: No acute fractures. Other: None IMPRESSION: No acute cardiopulmonary disease.
[2023-10-23 11:26] LABS: Absolute Basophils 0.1 K/uL (0-0.5); Absolute Monocytes 0.3 K/uL (0.1-1.3); Absolute Neutrophil 6.5 K/uL (1.8-8.0); Basophils % 0.6 % (0-1.3); Eosinophils % 0.2 % (0-4.4); Hemoglobin 11.1 g/dL (12.0-15.0); Lymphocytes % 13.2 % (15.3-44.8); MCH 27.2 pg (27.0-35.0); MCHC 33.7 g/dL (32.0-36.0); MCV 80.8 fL (80-100); MPV 8.4 fL (7.6-11.3); Monocytes % 3.7 % (3.3-12.3); Neutrophils % 82.3 % (41.7-73.7); Platelets 319 thou/uL (152-406); RBC Red Blood Cell Count 4.09 M/uL (3.86-4.86)
[2023-10-23 11:42] LABS: Calcium Oxalate Crystals- Ur Few /HPF (None Seen); Sqamous Epithelial <5 /HPF (None Seen); Urine Bacteria >50 /HPF (<20); Urine Bilirubin NEGATIVE (Negative); Urine Blood 2+ (Negative); Urine Clarity Extremely Turbid (Clear); Urine Color Light-Orange (Yellow); Urine Culture Reflex Order REFLEXED; Urine Glucose NEGATIVE (Negative); Urine Ketones NEGATIVE (Negative); Urine Microscopic Reflex YN ORDER UMIC; Urine Mucus Slight /HPF (None Seen); Urine Nitrite 2+ (Negative); Urine Protein 1+ (Negative); Urine RBC 21-50 /HPF (None Seen); Urine Urobilinogen Normal (Normal); Urine WBC >50 /HPF (<5); Urine pH 6.5 (5.0-7.0)
[2023-10-23] MEDS ORDERED: CEFTRIAXONE 1000 MG/VIAL ONE (11:49)
[2023-10-23] MEDS ORDERED: NA CHLORIDE 0.9% 0 ML ONE (11:50)
[2023-10-23 12:08] LABS: PT Prothrombin Time 14.2 SECONDS (9.5-12.5); PTT, Activated Partial Thromb 30.6 SECONDS (24.3-36.9); Protime INR 1.3
--- NOTE | 2023-10-23 12:20 | RAD REPORT ---
EXAM DESCRIPTION: CT - Abdomen Pelvis W Contrast - 10/23/2023 11:40 am CLINICAL HISTORY: Abdominal pain COMPARISON: 2019 TECHNIQUE: Computed axial tomography of the abdomen pelvis was obtained. 100 cc Isovue-300 was admin istered intravenously. Oral contrast was not requested which limits evaluation of bowel and appendix All CT scans are performed using dose optimization technique as appropriate and may include automated exposure control or mA/KV adjustment according to patient size. FINDINGS: Small hepatic cysts. The spleen, pancreas, adrenals and left kidney appear unremarkable Enhancement right renal pelvis. Increased density within the right renal pelvis presumably a calculus rather than contrast. Probable gallstones. The gallbladder wall borderline thickened Normal appendix. Pessary in place. There is no evidence of diverticulitis. Spondylosis L5-S1. No adnexal mass A sacral decubitus ulcer. Inflammatory tissue within the adjacent subcutaneous fat. No abscess seen. Cortical irregularity adjacent coccyx IMPRESSION: Probable gallstones. Borderline gallbladder wall thickening. Ultrasound recommended Enhancement of the right renal pelvis may indicate infection. A sacral decubitus ulcer. Cortical irregularity adjacent coccyx consistent with osteomyelitis
--- NOTE | 2023-10-23 12:39 | EDPHYS ---
Physician Documentation [facility] Name: Betina Ward Age: 77 yrs Sex: Female : 1945 Arrival Date: 10/23/2023 Time: 09:53 Bed 16 Private MD: ED Physician Amari Benton HPI: 10/22 12:35 This 77 yrs old Female presents to ER via EMS with complaints of Altered Mental Status, rn Weakness. 12:35 The patient presents with decreased responsiveness. Onset: The symptoms/episode rn began/occurred at an unknown time. Possible causes: unknown. Current symptoms: In the emergency department the patient's symptoms are unchanged from the initial presentation. The patient has not experienced similar symptoms in the past. called 911 for altered mental status and generalized weakness, patient not eating lately. No known trauma. No fever. Does report sacral wound that just opened up recently but cannot tell exactly when.. Historical: - Allergies: 10: Latex; db - PMHx: 10:26 Diabetes - IDDM; Hyperlipidemia; Glaucoma; Hypertension; Hypothyroidism; db - Immunization history:: Adult Immunizations unknown. - Infectious Disease History:: Denies. - Social history:: Smoking status: Patient denies any tobacco usage or history of. - Family history:: not pertinent. - Hospitalizations: : No recent hospitalization is reported. ROS: 12:35 Constitutional: Positive for weight loss Cardiovascular: Negative for chest pain, rn palpitations, and edema, Respiratory: Negative for shortness of breath, cough, wheezing, and pleuritic chest pain, Abdomen/GI: Negative for abdominal pain, nausea, vomiting, diarrhea, and constipation, Back: Negative for injury and pain, MS/Extremity: Negative for injury and deformity, Skin: Positive for sacral wound Neuro: Positive for altered mental status and generalized weakness 12:35 Unable to obtain ROS due to altered mental status, Exam: 12:35 Constitutional: Thin cachectic female, awakens to voice Head/Face: Normocephalic, rn atraumatic. ENT: Dry mucous membranes Cardiovascular: Regular rate and rhythm. No pulse deficits. Respiratory: No increased work of breathing, no retractions or nasal flaring. Abdomen/GI: Soft, non-tender Skin: Open sacral wound, approximately 2 inches diameter. Foul smell. Appears deep MS/ Extremity: Pulses equal, no cyanosis. Neuro: Somnolent, awakens to voice. Answers some questions but seems overall confused. 13:59 ECG was reviewed by the Attending Physician. rn Vital Signs: 09:52 BP 171 / 87; Pulse 85; Resp 16; Temp 97.6(TE); Pulse Ox 98% on R/A; Weight 40.82 kg (M);db 10:30 BP 161 / 88; Pulse 82; Resp 16; Pulse Ox 99% on R/A; db 11:00 BP 165 / 94; Pulse 82; Resp 16; Pulse Ox 95% on R/A; db 11:20 BP 156 / 85; Pulse 93; Resp 16; Pulse Ox 99% ; db 12:00 BP 153 / 92; Pulse 81; Resp 18; Pulse Ox 100% ; db 13:00 BP 133 / 91; Pulse 82; Resp 18; Pulse Ox 99% on R/A; db 14:00 BP 155 / 77; Pulse 85; Resp 15; Pulse Ox 95% on R/A; db 14:30 BP 132 / 81; Pulse 86; Resp 15; Pulse Ox 96% on R/A; db 18:00 BP 153 / 91; Pulse 83; Resp 17; Temp 97.6; Pulse Ox 94% on R/A; db MDM: 09:57 Patient medically screened. rn 12:35 Differential Diagnosis: hypoglycemia, UTI, volume depletion, Osteomyelitis, rn dehydration. Data reviewed: vital signs, nurses notes, lab test result(s), radiologic studies, CT scan, and as a result, I will admit patient. Consideration of Admission/Observation Patient was admitted/placed on observation. Escalation of care including admission/observation considered. Management of patient was discussed with the following: Hospitalist: Discussed case with hospitalist, will admit for osteomyelitis and UTI/ascending UTI. Care significantly affected by the following chronic conditions: Diabetes, Hypertension. Counseling: I had a detailed discussion with the patient and/or guardian regarding the historical points, exam findings, and any diagnostic results supporting the discharge/admit diagnosis, lab results, radiology results, the need for further work-up and treatment in the hospital. 10/22 09:57 Order name: Blood Culture Adult (2) rn 10/22 09:57 Order name: CBC with Diff; Complete Time: 11:44 rn 10/22 09:57 Order name: CMP; Complete Time: 11:44 rn 10/22 09:57 Order name: Lactate w/ 2H reflex if indic.; Complete Time: 11:44 rn 10/22 09:57 Order name: Protime (+inr); Complete Time: 12:27 rn 10/22 09:57 Order name: Ptt, Activated; Complete Time: 12:27 rn 10/22 09:57 Order name: Urinalysis w/ reflexes; Complete Time: 11:44 rn 10/22 11:04 Order name: Glucose, Ancillary Testing; Complete Time: 11:44 EDMS 10/22 11:45 Order name: Urine Culture EDMS 10/22 13:08 Order name: Thyroid Stimulating Hormone EDMS 10/22 13:08 Order name: Urinalysis w/ reflexes EDMS 10/22 13:08 Order name: CBC with Automated Diff EDMS 10/22 13:08 Order name: CBC with Automated Diff EDMS 10/22 13:08 Order name: CBC with Automated Diff EDMS 10/22 13:08 Order name: CBC with Automated Diff EDMS 10/22 13:08 Order name: Comprehensive Metabolic Panel EDMS 10/22 13:08 Order name: Comprehensive Metabolic Panel EDMS 10/22 13:08 Order name: Comprehensive Metabolic Panel EDMS 10/22 13:08 Order name: Comprehensive Metabolic Panel EDMS 10/22 13:08 Order name: Lipid Profile EDMS 10/22 13:08 Order name: Lipid Profile EDMS 10/22 13:08 Order name: Magnesium EDMS 10/22 13:08 Order name: Magnesium EDMS 10/22 13:08 Order name: Magnesium EDMS 10/22 13:08 Order name: Magnesium EDMS 10/22 13:08 Order name: Phosphorus EDMS 10/22 13:08 Order name: Phosphorus EDMS 10/22 13:08 Order name: Phosphorus EDMS 10/22 13:08 Order name: Phosphorus EDMS 10/22 13:08 Order name: Urine Culture EDMS 10/22 17:04 Order name: ABO/RH no charge EDMS 10/22 17:15 Order name: Type and Screen EDMS 10/22 09:57 Order name: Chest Single View XRAY; Complete Time: 11:44 rn 10/22 09:57 Order name: CT Abd/Pelvis - IV Contrast Only; Complete Time: 12:27 rn 10/22 12:28 Order name: US Abdomen Limited; Complete Time: 13:36 rn 10/22 09:57 Order name: EKG; Complete Time: 09:58 rn 10/22 09:57 Order name: Accucheck; Complete Time: 11:45 rn 10/22 09:57 Order name: Cardiac monitoring; Complete Time: 11:45 rn 10/22 09:57 Order name: Cath; Complete Time: 11:45 rn 10/22 09:57 Order name: EKG - Nurse/Tech; Complete Time: 11:45 rn 10/22 09:57 Order name: IV Saline Lock - Large Bore; Complete Time: 11:45 rn 10/22 09:57 Order name: Labs collected and sent; Complete Time: 11:45 rn 10/22 09:57 Order name: O2 Per Protocol; Complete Time: 11:45 rn 10/22 09:57 Order name: O2 Sat Monitoring; Complete Time: 11:45 rn 10/22 09:57 Order name: Vital Signs; Complete Time: 11:45 rn 10/22 15:42 Order name: Labs - recollect needed: recollect type and screen, re band pt.; Complete bd Time: 16:11 EC:59 Rate is 84 beats/min. Rhythm is regular. QRS [place] is Normal. MO interval is normal. QRS rn interval is normal. QT interval is normal. No Q waves. T waves are Normal. No ST changes noted. Clinical impression: Normal ECG. Interpreted by me. Reviewed by me. Administered Medications: 11:53 Drug: Rocephin IV 1 grams IV at calculated rate once; Given slow IV push per pharmacy db instructions Route: IV; Rate: calculated rate; Site: left wrist; 12:30 Follow up: Response: No adverse reaction; IV Status: Completed infusion; IV Intake: 50mldb Disposition Summary: 10/23/23 12:39 Hospitalization Ordered Notes: Hospitalization Status: Inpatient Admission rn Provider: Alecia Steiner rn Condition: Stable rn Problem: new rn Symptoms: are unchanged rn Bed/Room Type: Standard rn Location: Telemetry/MedSurg (Inpatient)(10/23/23 17:50) bd Room Assignment: 231(10/23/23 17:50) bd Diagnosis - Altered mental status, unspecified rn - UTI/ Urinary tract infection, site not specified rn - Osteomyelitis, unspecified rn Forms: - Medication Reconciliation Form rn - SBAR form rn - Leadership Thank You Letter rn Signatures: Dispatcher [employer] EDME Betina Agustin bd Amari Benton MD MD rn Benton, Danielle, RN RN db Corrections: (The following items were deleted from the chart) 09:58 09:58 BLOOD CULTURE*+BA.LAB.BRZ ordered. EDMS EDMS 09:58 09:58 CBC+H.LAB.BRZ ordered. EDMS EDMS 09:58 09:58 COMPREHENSIVE METABOLIC PANEL+C.LAB.BRZ ordered. EDMS EDMS 09:58 09:58 LACTATE+C.LAB.BRZ ordered. EDMS EDMS 09:58 09:58 PROTIME (+INR)+COAG.LAB.BRZ ordered. EDMS EDMS 09:58 09:58 PTT, ACTIVATED+COAG.LAB.BRZ ordered. EDMS EDMS 09:58 09:58 Urinalysis+U.LAB.BRZ ordered. EDMS EDMS 09:58 09:58 Abdomen Pelvis W Con+CT.RAD.BRZ ordered. EDME EDMS 12:28 12:28 Abdomen Limited+US.RAD.BRZ ordered. EDME EDMS 12:36 12:35 Constitutional: Positive for weight loss Cardiovascular: Negative for chest pain, rn palpitations, and edema, Respiratory: Negative for shortness of breath, cough, wheezing, and pleuritic chest pain, Abdomen/GI: Negative for abdominal pain, nausea, vomiting, diarrhea, and constipation, Back: Negative for injury and pain, MS/Extremity: Negative for injury and deformity, Skin: Positive for sacral wound Neuro: Positive for altered mental status and generalized weakness rn 13: 13:08 Abdomen Exam Limited ordered. EDME EDMS 14: 12:39 Telemetry/MedSurg (Inpatient) rn bd 14: 12:39 rn bd 17:50 14:09 BR ER HOLD bd bd 17:50 14:09 ERHOLD- bd bd
--- NOTE | 2023-10-23 12:39 | ER ---
Nurse's Notes [facility] Name: Betina Ward Age: 77 yrs Sex: Female : 1945 Arrival Date: 10/23/2023 Time: 09:53 Bed 16 Private MD: Diagnosis: Altered mental status, unspecified;UTI/ Urinary tract infection, site not specified;Osteomyelitis, unspecified Presentation: 10/22 09:52 Chief complaint: EMS states: PT FROM HOME LIVES WITH . REPORTED TO EMS db PT HAS BEEN REFUSING MEDICAL CARE FOR 2 YRS HAS NOT BEEN TAKING MEDICATIONS OR SEEING PROVIDER. IN PT HAD DECREASED APPETITE AND BEGAN TO SLOWLY STOP GETTING AROUND AND TALKING. TODAY PT IS ALTERED AND ONLY MOANS UNABLE TO UNDERSTAND PT. PT BRIEF IS CLEAN. NOTED WOUND TO BUTTOCKS. NOTED DRIED FECES ON FEET. Coronavirus screen: Client denies travel out of the [place] in the last 14 days. At this time, the client does not indicate any symptoms associated with coronavirus-19. Ebola Screen: Patient negative for fever greater than or equal to 101.5 degrees Fahrenheit, and additional compatible Ebola Virus Disease symptoms Patient denies exposure to infectious person. Patient denies travel to an Ebola-affected area in the 21 days before illness onset. No symptoms or risks identified at this time. Initial Sepsis Screen: Does the patient meet any 2 criteria? Altered Mental Status. Yes Does the patient have a suspected source of infection? No. Patient's initial sepsis screen is negative. Risk Assessment: Do you want to hurt yourself or someone else? Patient reports no desire to harm self or others. Onset of symptoms was October 23, 2023. Care prior to arrival: Glucose check: 146. 09:52 Method Of Arrival: EMS: [facility] db 09:52 Acuity: RIANA 2 db Triage Assessment: :52 Derm: Wound noted buttocks. db 10:26 General: Appears comfortable, unkempt, emaciated, malnourished, Behavior is ALTERED. db Pain: Unable to use pain scale. Patient is disoriented. Neuro: Level of Consciousness is confused, Oriented to none. Respiratory: Airway is patent Respiratory effort is even, unlabored, Respiratory pattern is regular, symmetrical. Historical: - Allergies: 10:26 Latex; db - PMHx: 10:26 Diabetes - IDDM; Hyperlipidemia; Glaucoma; Hypertension; Hypothyroidism; db - Immunization history:: Adult Immunizations unknown. - Infectious Disease History:: Denies. - Social history:: Smoking status: Patient denies any tobacco usage or history of. - Family history:: not pertinent. - Hospitalizations: : No recent hospitalization is reported. Screenin:49 [facility] ED Fall Risk Assessment (Adult) History of falling in the last 3 months, db including since admission No falls in past 3 months (0 pts) Confusion or Disorientation Yes (5 pts) Intoxicated or Sedated No (0 pts) Impaired Gait No (0 pts) Mobility Assist Device Used No (0 pt) Altered Elimination Yes (1 pt) Score/Fall Risk Level 3 or more points = High Risk Oriented to surroundings, Maintained a safe environment, Hourly rounding (assess needs \T\ fall precautionary measures) done. Abuse screen: Denies threats or abuse. Denies injuries from another. Nutritional screening: No deficits noted. Tuberculosis screening: No symptoms or risk factors identified. Assessment: 09:52 Reassessment: SEE TRIAGE FOR INITIAL ASSESSMENT. db 12:32 Reassessment: Patient appears in no apparent distress at this time. Patient and/or db family updated on plan of care and expected duration. Pain level reassessed. General: Appears in no apparent distress. comfortable, Behavior is calm, quiet. Neuro: Level of Consciousness is confused. 13:30 Reassessment: Patient appears in no apparent distress at this time. No changes from db previously documented assessment. Patient and/or family updated on plan of care and expected duration. Pain level reassessed. 14:48 Reassessment: Patient appears in no apparent distress at this time. No changes from db previously documented assessment. Patient and/or family updated on plan of care and expected duration. Pain level reassessed. 16:12 Reassessment: Patient appears in no apparent distress at this time. Patient and/or db family updated on plan of care and expected duration. Pain level reassessed. Cardiovascular: No deficits noted. Respiratory: Airway is patent Respiratory effort is even, unlabored, Respiratory pattern is regular, symmetrical. 19:23 Reassessment:. db Vital Signs: 09:52 BP 171 / 87; Pulse 85; Resp 16; Temp 97.6(TE); Pulse Ox 98% on R/A; Weight 40.82 kg (M);db 10:30 BP 161 / 88; Pulse 82; Resp 16; Pulse Ox 99% on R/A; db 11:00 BP 165 / 94; Pulse 82; Resp 16; Pulse Ox 95% on R/A; db 11:20 BP 156 / 85; Pulse 93; Resp 16; Pulse Ox 99% ; db 12:00 BP 153 / 92; Pulse 81; Resp 18; Pulse Ox 100% ; db 13:00 BP 133 / 91; Pulse 82; Resp 18; Pulse Ox 99% on R/A; db 14:00 BP 155 / 77; Pulse 85; Resp 15; Pulse Ox 95% on R/A; db 14:30 BP 132 / 81; Pulse 86; Resp 15; Pulse Ox 96% on R/A; db 18:00 BP 153 / 91; Pulse 83; Resp 17; Temp 97.6; Pulse Ox 94% on R/A; db ED Course: 09:52 Arm band placed on Patient placed in an exam room. db 09:56 Patient arrived in ED. rn 09:56 Amari Benton MD is Attending Physician. rn 10:22 Venus Kothari, TONE is Primary Nurse. db 10:26 Triage completed. db 10:48 Initial lab(s) drawn, by me, sent to lab. Maintain EMS IV. Dressing intact. Good blood db return noted. Site clean \T\ dry. Gauge \T\ site: 20 G LEFT WRIST. 11:15 Chest Single View XRAY In Process Unspecified. EDMS 11:30 Urine collected: straight cath specimen, cloudy, Amount Returned: 50mL. Straight cath db inserted, using sterile technique, 16 Fr. Specimen obtained. Returned cloudy urine. Patient tolerated well. 11:42 CT Abd/Pelvis - IV Contrast Only In Process Unspecified. EDMS 12:39 Alecia Steiner MD is Hospitalizing Provider. rn 12:56 US Abdomen Limited In Process Unspecified. EDMS 14:49 Patient has correct armband on for positive identification. Placed in gown. Bed in low db position. Call light in reach. Side rails up X2. Provided Education on: ADMISSION. Client placed on continuous cardiac and pulse oximetry monitoring. NIBP monitoring applied. conveyor monitor on. Pulse ox on. NIBP on. Warm blanket given. Pillow given. 19:23 No provider procedures requiring assistance completed. Patient admitted, IV remains in db place. Administered Medications: 11:53 Drug: Rocephin IV 1 grams IV at calculated rate once; Given slow IV push per pharmacy db instructions Route: IV; Rate: calculated rate; Site: left wrist; 12:30 Follow up: Response: No adverse reaction; IV Status: Completed infusion; IV Intake: 50mldb Medication: 16:13 VIS not applicable for this client. db Intake: 12:30 IV: 50ml; Total: 50ml. db Outcome: 12:39 Decision to Hospitalize by Provider. rn 19:23 Admitted to ER Hold. Please see [facility] for further documentation. db 19:23 Condition: stable 19:23 Instructed on the need for admit, 20:05 Patient left the ED. jb4 Signatures: Dispatcher [employer] EDAmari Presley MD MD rn Bryson, James, RN RN jbVenus Singleton RN RN db
--- NOTE | 2023-10-23 12:56 | P.HP ---
Certification for Inpatient Patient admitted to: Inpatient With expected LOS: >2 Midnights Patient will require the following post-hospital care: Usp Practitioner: I am a practitioner with admitting privileges, knowledge of patient current condition, hospital course, and medical plan of care. Services: Services provided to patient in accordance with Admission requirements found in Title 42 Section 412.3 of the Code of Federal Regulations <Lori Fungskylar Murphy - Last Filed: 10/23/23 14:08> Patient History Date of Service: 10/23/23 Primary Care Provider: Jani Reason for admission: Malnutrition, UTI, sacral osteo History of Present Illness: Mrs. Ward is a 77-year-old cachectic, bedbound woman who comes from home via EMS for AMS, bedsore. Her has been trying to care for her. He states that she's refused help or any medical attention since mid January of last year. He relates that she does not have difficulty eating but just refused to eat starting mid January and by March she was unable to get out of bed. On exam she is confused, cachectic with thickened, mortise appearing skin. She moves her upper extremities and is noncommunicative. In an attempt to logroll her and look at her sacral wound, she does appear to have pain. Her is at bedside and states he is not qualified to care for her. Will request evaluation with social work for SNF placement. In the meantime, we will admit her for hydration, antibiotics for urinary tract infection and sacral wound with probable osteomyelitis, and TPN. - Past Medical/Surgical History Diabetic: Yes -: Hypertension -: Diabetes mellitus type 2 -: Hyperlipidemia -: Hypothyroidism Past Surgical History: Unable to obtain Psychosocial/ Personal History: Pt lives at home with her , they have a developmentally delayed Son. Pt has refused to eat and has been unable to get out of bed. Needs SNF placement - Family History Father -: Heart disease - Social History Smoking Status: Never smoker Alcohol use: No CD- Drugs: No Caffeine use: No Place of Residence: Home <Claire Fung - Last Filed: 10/23/23 14:08> Date of Service: 10/23/23 <Alecia Steiner - Last Filed: 10/23/23 16:53> Allergies latex Allergy (Verified 02/14/20 15:44) Itching/Hives/Rash Home Medications: Cyclosporine [Restasis] 1 drop EACH EYE BID 02/14/20 Levothyroxine [Synthroid*] 1 tab PO 0630 02/14/20 Metoprolol Tartrate [Lopressor*] 75 mg PO DAILY 02/14/20 Simvastatin 20 mg PO BEDTIME 02/14/20 Travoprost [Travatan Z*] 1 drop EACH EYE BEDTIME 02/14/20 Liraglutide [Victoza 2-Brian] 0.6 ml SQ BEDTIME 02/16/20 Amlodipine Besylate [Norvasc] 1 tab PO DAILY 30 Days #30 tablet 02/18/20 Ciprofloxacin HCl 500 mg PO BID 3 Days #6 tablet 02/18/20 Loperamide [Imodium*] 1 tab PO Q4H PRN 5 Days #30 cap 02/18/20 Review of Systems 10-point ROS is otherwise unremarkable General: As per HPI Integumentary: As per HPI Neurological: As per HPI <AntonietaClaire Jeffrey - Last Filed: 10/23/23 14:08> Physical Examination - Physical Exam General: Cachectic, Disheveled, Confused HEENT: Atraumatic, Normocephalic Neck: Supple Respiratory: Normal air movement Cardiovascular: No edema, Normal pulses, Regular rate/rhythm Capillary refill: >2 Seconds Gastrointestinal: Other (schapoid) Musculoskeletal: No clubbing, Other (painful ROM of lower half of body) Integumentary: Pressure ulcer (foul smelling, wet), Other (white/yellow thickened skin over most of body, pallor) Neurological: Abnormal strength, Abnormal tone, Abnormal affect Lymphatics: No axilla or inguinal lymphadenopathy External genitalia: Deferred Rectal: Deferred - Studies Laboratory Data (last 24 hrs) 10/23/23 10/23/23 10/23/23 10:49 10:49 10:49 WBC 7.90 Hgb 11.1 L Hct 33.0 L Plt Count 319 PT 14.2 H INR 1.30 APTT 30.6 Sodium 132 L Potassium 3.4 L BUN 19 H Creatinine 0.83 Glucose 137 H Total Bilirubin 0.6 AST 11 L ALT < 14 Alkaline Phosphatase 86 <Fung,Claire Jeffrey - Last Filed: 10/23/23 14:08> - Studies Laboratory Data (last 24 hrs) 10/23/23 10/23/2310/22/24 10:49 10:49 10:49 WBC 7.90 Hgb 11.1 L Hct 33.0 L Plt Count 319 PT 14.2 H INR 1.30 APTT 30.6 Sodium 132 L Potassium 3.4 L BUN 19 H Creatinine 0.83 Glucose 137 H Total Bilirubin 0.6 AST 11 L ALT < 14 Alkaline Phosphatase 86 <Alecia Steiner - Last Filed: 10/23/23 16:53> Assessment and Plan - Plan Failure to thrive/weak/cachectic PICC for TPN/fdc abx Consult SW for SNF placement Dehydrated Hydration Monitor and trend electrolytes - replete prn UTI/Sacral wound with Osteomyelitis Rocepin 1 gm IVPB daily Vancomycin 1gm IVPB daily Rubin Offload pressure areas HTN Monitor and trend HLD Lipids in am Hypothyroidism check TSH and eval medications - Advance Directives Does patient have a Living Will: No Does patient have a Durable POA for Healthcare: No <Claire Fung - Last Filed: 10/23/23 14:08> - Plan Pt seen and examined. I agree with the note by the COMPANY LABORER. Pt is a 77yo female with past medical history of HLD, Htn, Hypothyroidism, and sacral wound who presents with AMS and sacral wound. Her is her memory care program resident. He reports that pt has been refusing medical help since last January. She has not been eating well since January 2023. On admission, lab studies show K 3.4, wbc 7.9, Na 132, Cr 0.83. UA is positive for UTI. At bedside, pt is in NAD. She appears cachectic andhas sacral wound. Her is considering SNF placement because he can't take care of her at home. A/P: AMS: due to UTI: Continue rocephin and f/u urine cx. Hypokalemi: K is 3.4. Will replete and monitor Hyponatremia: NA is 132. Will continue IVF and trend Na level. Volume depletion: Will continue IVF Cachexia: Pt was encouraged to eat. Will consider TPN Sacral wound Will continue iv vanc and rocephin. Will continue wound care and f/u wound cx. Continue home meds for other chronic medical problems. <Alecia Steiner - Last Filed: 10/23/23 16:53>
[2023-10-23] MEDS ORDERED: NA CHLORIDE 0.9% 1,000 ML IV SCH (13:00)
[2023-10-23] MEDS: INSULIN REGULAR (HUMAN) 100 UNIT/ML SQ SCH (13:14)
--- NOTE | 2023-10-23 13:32 | RAD REPORT ---
EXAM DESCRIPTION: US - Abdomen Exam Limited - 10/23/2023 1:01 pm CLINICAL HISTORY: further eval for cholecystitis COMPARISON: Abdomen Pelvis W Contrast dated 10/23/2023 TECHNIQUE: Sonographic grayscale and color flow images of the right upper abdominal quadrant were o btained. FINDINGS: The gallbladder demonstrates heterogeneous echogenic sludge with some punctate echogenic f oci, may represent small stones as well. Trace pericholecystic fluid at the fundus. Gallbladder wall thickening up to 6 mm. Exam was technically difficult, with poor patient cooperation, limiting evalua tion for a sonographic Perales's sign. The common bile duct is normal measuring 3 mm. The liver demonstrates no findings of intrahepatic biliary dilatation. IMPRESSION: Heterogeneous sludge and suspected small gallstones. Gallbladder wall thickening and tra ce pericholecystic fluid at the fundus, may suggest ongoing acute cholecystitis in the appropriate cl inical setting. Limited evaluation for a sonographic Perales sign as above.
[2023-10-23] MEDS: ENOXAPARIN 40 MG/0.4 ML SQ SCH (14:00)
[2023-10-23] MEDS: NA CHLORIDE 0.9% 1,000 ML IV SCH (16:00)
[2023-10-23] MEDS: VANCOMYCIN 1 GM in NA CHLORIDE 0.9% 250 ML IVPB SCH (17:00)
[2023-10-23] MEDS ORDERED: ENOXAPARIN 40 MG/0.4 ML SQ ONE (18:04)
[2023-10-23] MEDS ORDERED: VANCOMYCIN 1 GM/VIAL ONE (18:04)
[2023-10-23] MEDS ORDERED: NA CHLORIDE 0.9% 1,000 ML ONE (18:05)
[2023-10-23] MEDS ORDERED: NA CHLORIDE 0.9% 50 ML ONE (18:05)
[2023-10-23] MEDS ORDERED: NA CHLORIDE 0.9% 250 ML ONE (18:06)
--- NOTE | 2023-10-23 23:01 | RAD REPORT ---
EXAM DESCRIPTION: BECKAChest Single View10/23/2023 9:45 pm CLINICAL HISTORY: PICC LINE INSERTION COMPARISON: Chest Single View dated 10/23/2023; Chest Single View dated 02/14/2020; CHEST PA AND LAT 2 VIEW dated 10/05/2014; CHEST PA AND LAT 2 VIEW dated 04/18/2007 TECHNIQUE: Portable AP view of the chest. FINDINGS: Right arm PICC with catheter tip along the distal SVC. The lungs are clear. No pneumothor ax or effusion. The cardiomediastinal contours are unremarkable. IMPRESSION: Satisfactory positioning of the right arm PICC. No acute cardiopulmonary process.
[2023-10-23] MEDS: Mupirocin NASAL 2 APPL/1 GM TUBE NAS SCH (23:58)
[2023-10-24 05:58] LABS: Absolute Lymphocytes (CBC) 0.8 K/uL (0.7-4.9); Absolute Monocytes 0.4 K/uL (0.1-1.3); Absolute Neutrophil 5.9 K/uL (1.8-8.0); Basophils % 0.2 % (0-1.3); Hematocrit 29.5 % (36.0-45.0); Hemoglobin 10.1 g/dL (12.0-15.0); Lymphocytes % 10.7 % (15.3-44.8); MCH 27.7 pg (27.0-35.0); MCHC 34.3 g/dL (32.0-36.0); MCV 80.7 fL (80-100); MPV 8.3 fL (7.6-11.3); Monocytes % 5.4 % (3.3-12.3); Neutrophils % 83.7 % (41.7-73.7); Platelets 294 thou/uL (152-406); RBC Red Blood Cell Count 3.66 M/uL (3.86-4.86); Red Cell Distribution Width 15.5 % (12.1-15.2)
[2023-10-24 06:24] LABS: Albumin 2.3 g/dL (3.4-5.0); Albumin/Globulin Ratio 0.6 (1.1-1.8); Alkaline Phosphatase 77 U/L (45-117); Anion Gap 8.6 mEq/L (5.0-15.0); BUN Blood Urea Nitrogen 13 mg/dL (7-18); Bicarbonate 26 mEq/L (21-32); Bilirubin Total 0.5 mg/dL (0.2-1.0); Globulin 3.8 g/dL (2.3-3.5); Glomerular Filtration Rate 96 ml/min (=/>90); Glucose Level 98 mg/dL (74-106); HDL Cholesterol 22 mg/dL (40-60); LDL Cholesterol, Calculated 93 mg/dL (<130); LDL Cholesterol,Calc NonReport 93; Magnesium 1.6 mg/dL (1.6-2.4); Phosphorus 2.3 mg/dL (2.5-4.9); Protein, Total 6.1 g/dL (6.4-8.2); Sodium Level 134 mEq/L (136-145)
[2023-10-24 06:30] LABS: ALT/SGPT < 14 U/L (13-56); AST/SGOT < 10 U/L (15-37)
[2023-10-24 06:31] LABS: Potassium 2.6 mEq/L (3.5-5.1)
[2023-10-24] MEDS ORDERED: POTASSIUM PHOS IN 0.9 % NACL 15 MMOL/250 ML BAG IV ONE (07:30)
[2023-10-24] MEDS: KCL 20 MEQ/100 mL IVPB 20 MEQ/100 ML BAG IV SCH (07:40)
[2023-10-24] MEDS: MAGNESIUM SULFATE 1 gm IVPB 1 GM/100 ML BAG IV ONE ×2 (07:40→11:39)
[2023-10-24] MEDS: CEFTRIAXONE 1,000 MG in NA CHLORIDE 0.9% 50 ML IVPB SCH (07:41)
[2023-10-24] MEDS: POTASSIUM PHOS IN 0.9 % NACL 15 MMOL/250 ML BAG IV ONE ×2 (08:55→16:11)
[2023-10-24] MEDS ORDERED: POTASSIUM CL 40 MEQ in NA CHLORIDE 0.9% 500 ML IV SCH (09:00)
[2023-10-24] MEDS: AA 5%/D20W/ELECTROLYTES-TPN 2,000 ML IV SCH (09:40)
[2023-10-24] MEDS: HYDRALAZINE HCL 20 MG/ML VIAL IV PRN (12:03)
--- NOTE | 2023-10-24 12:03 | P.PN ---
Subjective Date of Service: 10/24/23 Primary Care Provider: Jani Chief Complaint: Malnutrition, UTI, sacral osteo Pt is resting comfortably in bed. She appears weak. Pt refused to eat this morning. I encouraged her to eat. It appears pt has underlying dementia. No other complaints. Review of Systems General: Weakness Eyes: Unremarkable ENT: Unremarkable Respiratory: Unremarkable Cardiovascular: Unremarkable Gastrointestinal: Unremarkable Genitourinary: Unremarkable Musculoskeletal: Unremarkable Integumentary: Unremarkable Neurological: Unremarkable Lymphatics: Unremarkable Physical Examination - Vital Signs Temperature: 97.1 F Blood Pressure: 139/65 Pulse: 86 Respirations: 14 Pulse Ox (%): 99 - Physical Exam General: Alert, In no apparent distress, Cachectic HEENT: Atraumatic, Normocephalic, PERRLA Neck: Supple, 2+ carotid pulse no bruit Respiratory: Clear to auscultation bilaterally, Normal air movement Cardiovascular: No edema, Normal pulses, Regular rate/rhythm, Normal S1 S2 Capillary refill: <2 Seconds Gastrointestinal: Normal bowel sounds, Soft and benign, Non-distended Musculoskeletal: No clubbing, No swelling Integumentary: No rashes, Pressure ulcer Neurological: Normal speech, Normal strength at 5/5 x4 extr, Normal tone, Sensation intact Lymphatics: No axilla or inguinal lymphadenopathy - Studies Laboratory Data (last 24 hrs) 10/23/23 10:49 PT 14.2 H INR 1.30 APTT 30.6 Assessment And Plan - Plan AMS: due to UTI: Continue rocephin and f/u urine cx. Hypokalemia: K is 2.6 <- 3.4. Will replete and monitor. Mag is 1.6. Hypomagnesemia: Mag is 1.6. Will replete and monitor. Hyponatremia: Na is 134. Will continue IVF and trend Na level. Volume depletion: Will continue IVF Cachexia: Pt was encouraged to eat. Pt refused to eat. Will consider TPN Sacral wound Will continue iv vanc and rocephin. Will continue wound care and f/u wound cx. HTN: Will continue home med HLD: statin. Lipid profile is pending Hypothyroidism: Synthroid. DVT ppx: SCD Dispo: Pending hospital course
--- NOTE | 2023-10-24 15:04 | EKG ---
Test Date: 2023-10-23 Test Time: 10:41:30 Fish Bait Picker: [email or web address] MEASUREMENT RESULTS: Intervals: Rate: 84 MO: 166 QRSD: 82 QT: 366 QTc: 432 [place]: P: 80 MO: 166 QRS: 7 T: 69 INTERPRETIVE STATEMENTS: Normal sinus rhythm Normal ECG Compared to ECG 02/14/2020 10:05:56 Sinus bradycardia no longer present First degree AV block no longer present Myocardial infarct finding no longer present Electronically Signed On 10-24-23 15:00:21 CDT by Raimundo Horn
[2023-10-24 15:06] LABS: Magnesium 2.7 mg/dL (1.6-2.4); Phosphorus 2.1 mg/dL (2.5-4.9); Potassium 3.8 mEq/L (3.5-5.1)
[2023-10-24] MEDS ORDERED: ENSURE ENLIVE 237 ML CAN PO SCH (21:00)
[2023-10-24] MEDS: QUETIAPINE 25 MG TAB PO SCH (22:40)
[2023-10-24] MEDS: ENSURE HIGH PROTEIN 237 ML CAN PO SCH (22:40)
[2023-10-25 06:33] LABS: Absolute Lymphocytes (CBC) 0.5 K/uL (0.7-4.9); Absolute Monocytes 0.3 K/uL (0.1-1.3); Absolute Neutrophil 6.3 K/uL (1.8-8.0); Basophils % 0.2 % (0-1.3); Hematocrit 27.8 % (36.0-45.0); Hemoglobin 9.4 g/dL (12.0-15.0); Lymphocytes % 7.3 % (15.3-44.8); MCH 27.3 pg (27.0-35.0); MCHC 33.8 g/dL (32.0-36.0); MPV 8.3 fL (7.6-11.3); Monocytes % 4.6 % (3.3-12.3); Neutrophils % 87.9 % (41.7-73.7); Platelets 268 thou/uL (152-406); RBC Red Blood Cell Count 3.43 M/uL (3.86-4.86); Red Cell Distribution Width 15.9 % (12.1-15.2)
[2023-10-25 07:11] LABS: Albumin 2.1 g/dL (3.4-5.0); Albumin/Globulin Ratio 0.6 (1.1-1.8); Alkaline Phosphatase 72 U/L (45-117); Anion Gap 6.7 mEq/L (5.0-15.0); BUN Blood Urea Nitrogen 27 mg/dL (7-18); Bicarbonate 27 mEq/L (21-32); Bilirubin Total 0.3 mg/dL (0.2-1.0); Globulin 3.7 g/dL (2.3-3.5); Glomerular Filtration Rate 86 ml/min (=/>90); Glucose Level 350 mg/dL (74-106); Magnesium 2.2 mg/dL (1.6-2.4); Phosphorus 2.7 mg/dL (2.5-4.9); Potassium 3.7 mEq/L (3.5-5.1); Protein, Total 5.8 g/dL (6.4-8.2); Sodium Level 133 mEq/L (136-145)
[2023-10-25 07:14] LABS: ALT/SGPT < 14 U/L (13-56); AST/SGOT < 10 U/L (15-37)
[2023-10-25 07:36] LABS: Blood Morphology Comment NOT SEEN (NOT SEEN); Platelet Estimate ADEQ; White Blood Cell Scan OK (OK)
[2023-10-25] MEDS ORDERED: D50W 25 GM/50 ML SYRINGE IV PRN (08:22)
[2023-10-25] MEDS ORDERED: GLUCAGON 1 MG/VIAL IM PRN (08:22)
[2023-10-25] MEDS ORDERED: D10W 125 ML IV PRN (08:48)
[2023-10-25] MEDS ORDERED: INSULIN GLARGINE 100 UNIT/ML SQ SCH (09:00)
[2023-10-25] MEDS: INSULIN GLARGINE 100 UNIT/ML SQ SCH (09:37)
[2023-10-25] MEDS: KCL 20 MEQ/100 mL IVPB 20 MEQ/100 ML BAG IV SCH (12:01)
[2023-10-25] MEDS: INSULIN LISPRO 100 UNIT/ML SQ SCH (12:02)
--- NOTE | 2023-10-25 12:44 | P.PN ---
Subjective Date of Service: 10/25/23 Primary Care Provider: Jani Chief Complaint: Malnutrition, UTI, sacral osteo Pt is resting comfortably in bed. She appears weak. Pt refused to eat. Consulted Gen surgeon. Will place PEG tube and do I&D of the sacral wound. It appears pt has underlying dementia. No other complaints. Review of Systems Unremarkable Physical Examination - Vital Signs Temperature: 97.9 F Blood Pressure: 101/51 Pulse: 104 Respirations: 14 Pulse Ox (%): 98 - Physical Exam General: Alert, In no apparent distress, Oriented x3 HEENT: Atraumatic, Normocephalic, PERRLA Neck: Supple, 2+ carotid pulse no bruit Respiratory: Clear to auscultation bilaterally, Normal air movement Cardiovascular: No edema, Normal pulses, Regular rate/rhythm, Normal S1 S2 Capillary refill: <2 Seconds Gastrointestinal: Normal bowel sounds, Soft and benign, Non-distended Musculoskeletal: No clubbing, No swelling, No contractures Integumentary: No rashes, Pressure ulcer Neurological: Normal speech, Normal strength at 5/5 x4 extr, Normal tone, Sensation intact Lymphatics: No axilla or inguinal lymphadenopathy - Studies Microbiology Data (last 24 hrs): 10/23/23 11:30 Clean Catch Urine Arp Count - Final >100,000 CFU/ML. 10/23/23 11:30 Clean Catch Urine - Final Escherichia Coli Assessment And Plan - Plan AMS: due to UTI: Continue rocephin and f/u urine cx. Hypokalemia: K is 3.7<- 2.6 <- 3.4. Will replete and monitor. Mag is 1.6. Hypomagnesemia: Mag is 1.6. Will replete and monitor. Hyponatremia: Na is 133. Will continue IVF and trend Na level. Volume depletion: Will continue IVF Cachexia: Pt was encouraged to eat. Pt refused to eat. Will continue TPN. Will place PEG tube tomorrow. Sacral wound Will continue iv vanc and rocephin. Will continue wound care and f/u wound cx. Gen surgeon will do I&D tomorrow. HTN: Will continue home med HLD: statin. Lipid profile is pending Hypothyroidism: Synthroid. DVT ppx: SCD Dispo: Pending hospital course
[2023-10-25] MEDS: AA 5%/D20W/ELECTROLYTES-TPN 2,000 ML, Lipids 20% 250 ML with MULTIVITAMINS INJ 10 ML IV SCH (17:41)
--- NOTE | 2023-10-25 18:15 | CON ---
Date of Consultation: 10/25/2023 Brief History Of Present Illness: The patient is a 77-year-old cachectic, bedbound woman with a hist ory of dementia, who presents from home via EMS for altered mental status and ongoing worsening bedso re. Her has been trying to care for her for quite some period of time; however, he states th at since January, she has become more combative, difficult to treat at home, and has been noncompliant with diet, as she refuses to eat many meals and only eats small amounts of meals with his assistance , but she is able to swallow he believes without any aspiration. She simply refuses to eat and she h as become more combative with his overall treatment attempts. She is essentially noncommunicative ot her than occasional phrases and words during the examination and pushing against examination. Past Medical History: Significant for hypertension, diabetes, hyperlipidemia, hypothyroidism. She h as not seen a physician for some period of time for other possible medical issues per the 's r eport, as she refused to leave the house on these occasions and he is unable to carry her to [facility] and as such, her contact is only via EMS, the hospital providers. The patient currently lives at home with her . They have a developmentally delayed son. There is no history of smoking, tob acco usage, alcohol, or recreational drug use. Allergies: TO LATEX. Home Medications: Include Restasis, Synthroid, Lopressor, simvastatin, , Victoza, Norvasc, Cipro, Imodium. Review of Systems: Ten-point review of systems unable to obtain. Physical Examination: General: At the time of my examination, she is awake and alert, but argumentative, disheveled, confu sed, and refuses to comply with psychiatric examination. HEENT: She is otherwise normocephalic, atraumatic. Her sclerae were anicteric. Her mucous membrane s were somewhat dry. Oropharynx is clear. Neck: Supple without JVD. Chest: Normal expansion and excursion. Cardiovascular: Regular rate and rhythm. Pulmonary: Clear to auscultation bilaterally. Abdomen: Soft, nontender. No rebound. No guarding. No focal peritonitis. Negative Perales sign. She is argumentative, particularly with movement of her lower extremities, however. Extremities: There was no clubbing, cyanosis, or edema. She is generally cachectic in overall appea kleber. Thin and frail. On her back examination, there is what appears to be a stage III or IV sacra l decubitus ulcer, which is approximately 4-5 cm in size with necrosis, sloughing, and nonviable tiss ue. Skin: Otherwise warm and dry. Vital Signs: At the time of my examination were a blood pressure of 101/51, heart rate was 97, respi ratory rate 18, temperature is 97.9, SpO2 was 98% on room air. Laboratory Data: Revealed a white blood cell count of 7.2, hemoglobin is 9.4, hematocrit of 27.8, pl atelet count was 268. Her neutrophils are 87%. Her sodium 133, potassium 3.7, chloride 103, carbon dioxide is 27, BUN is 27, creatinine 0.73, glucose was 350, phosphorus is 2.7, magnesium 2.2, total b ilirubin was 0.3, AST less than 10, ALT less than 14, alkaline phosphatase 72. Imaging Data: She had imaging performed, which included a CT of the abdomen and pelvis performed on 10/22, officially read as probable gallstones, borderline gallbladder wall thickening. Ultrasound re commended. Enhancement of right renal pelvis may indicate infection. A sacral decubitus ulcer is pr esent. Cortical irregularity adjacent coccyx consistent with osteomyelitis. She additionally had an ultrasound on 10/22, officially read as heterogeneous sludge and suspected small gallstones. Gallbl adder wall thickening and trace pericholecystic fluid at the fundus may suggest ongoing acute cholecy stitis in the appropriate clinical setting. Limited evaluation of sonographic Perales sign as well de scribed above. The common bile duct was measuring 3 mm. Exam was technically difficult with poor pa tient cooperation limiting the evaluation for Perales sign. Assessment And Plan: This is a 77-year-old woman who I have examined in the presence of her , who presents with several issues. 1.Sacral decubitus pressure ulcer. 2.Significant malnutrition and multiple medical issues. 3.I have explained the risks, benefits, and alternatives of 2 procedures. The first being a debride ment of her sacrum in the operating room, which the risks include bleeding, infection, damage to surr ounding tissues, need for further operation or procedures, ongoing wound care will be necessary with pressure reduction strategies and dressing changes on a daily basis initially, likely benefit from a halfway and/or shelter for ongoing wound care in the initial phases of healing. Other u nforeseen complications could include heart attack, blood clot, strokes, and other unforeseen complic ations in the perioperative period. The patient's agrees to proceed with this procedure. 4.Procedure I have discussed is placement of a feeding tube/PEG (percutaneous endoscopic gastrostomy tube). I have explained that the patient has significant malnutrition and if he is unable to help h er meet her nutritional goals for whatever reason, she could likely benefit from a feeding tube and a s such, I have discussed the risks, benefits, and alternatives of the above PEG tube, including but n ot limited to bleeding, infection, intestinal perforation, damage to any internal organs particularly colon, small bowel, which may require emergency surgery lead to sepsis, perforated intestines and po ssible emergency surgery. I have also explained that she could have heart attacks, blood clots, stro kes, and other unforeseen complications in the perioperative period, particularly need for more surge ry or procedures. The patient's also displayed understanding of above-stated plan and agreed to proceed with percutaneous endoscopic gastrostomy tube placement following the other procedure. 5.We will get nutritional consultation to ensure we have appropriate nutritional goals calculated fo r the patient's ongoing tube feeds after the tube was placed. 6.I have been informed we will go to a shelter facility. We will discuss ongoing wound care after the procedure is performed, so that we can ensure the patient gets appropriate wound care with pressure reduction strategies. 7.I recommended an air mattress to be changed for the patient right now. 8.Continue medical management, especially with respect to her hyperglycemia, is likely being contrib uted to by her TPN. In addition, we can adjust her TPN accordingly and make some corrections to her glucose control medications. The patient's displayed understanding of the above-stated plan and agreed to proceed as indicated. PARRISH/SERGO Voice ID: [id number] Report ID: [id number]
[2023-10-26 04:26] LABS: Absolute Lymphocytes (CBC) 0.9 K/uL (0.7-4.9); Absolute Monocytes 0.2 K/uL (0.1-1.3); Absolute Neutrophil 4.5 K/uL (1.8-8.0); Basophils % 0.3 % (0-1.3); Eosinophils % 0.4 % (0-4.4); Hematocrit 24.5 % (36.0-45.0); Hemoglobin 8.1 g/dL (12.0-15.0); MCH 26.9 pg (27.0-35.0); MCV 81.3 fL (80-100); MPV 8.6 fL (7.6-11.3); Monocytes % 4.2 % (3.3-12.3); Neutrophils % 79.1 % (41.7-73.7); Nucleated Red Blood Cells % 0.1 % (0-0); Platelets 237 thou/uL (152-406); RBC Red Blood Cell Count 3.01 M/uL (3.86-4.86); Red Cell Distribution Width 15.7 % (12.1-15.2)
[2023-10-26 04:53] LABS: ALT/SGPT < 14 U/L (13-56); AST/SGOT < 10 U/L (15-37); Albumin 1.8 g/dL (3.4-5.0); Albumin/Globulin Ratio 0.5 (1.1-1.8); Alkaline Phosphatase 60 U/L (45-117); Anion Gap 8.2 mEq/L (5.0-15.0); BUN Blood Urea Nitrogen 33 mg/dL (7-18); Bicarbonate 26 mEq/L (21-32); Bilirubin Total 0.3 mg/dL (0.2-1.0); Globulin 3.4 g/dL (2.3-3.5); Glomerular Filtration Rate 92 ml/min (=/>90); Glucose Level 257 mg/dL (74-106); Magnesium 2.2 mg/dL (1.6-2.4); Phosphorus 1.9 mg/dL (2.5-4.9); Potassium 3.2 mEq/L (3.5-5.1); Protein, Total 5.2 g/dL (6.4-8.2); Sodium Level 134 mEq/L (136-145)
[2023-10-26] MEDS: KCL 20 MEQ/100 mL IVPB 20 MEQ/100 ML BAG IV SCH ×2 (05:32→21:53)
[2023-10-26] MEDS: POTASSIUM PHOS IN 0.9 % NACL 15 MMOL/250 ML BAG IV ONE (08:55)
[2023-10-26] MEDS: COLLAGENASE 30 GM OINTMENT TOP SCH (09:00)
[2023-10-26] MEDS: NA CHLORIDE 0.9% 1,000 ML ONE (12:20)
--- NOTE | 2023-10-26 12:56 | P.PN ---
Subjective Date of Service: 10/26/23 Primary Care Provider: Jani Chief Complaint: Malnutrition, UTI, sacral osteo Pt is resting comfortably in bed. She was sleeping when I saw her. Pt refused to eat. Consulted Gen surgeon. Will place PEG tube and do I&D of the sacral wound today. It appears pt has underlying dementia. No other complaints. Review of Systems Unremarkable Physical Examination - Vital Signs Temperature: 98.2 F Blood Pressure: 118/51 Pulse: 98 Respirations: 20 Pulse Ox (%): 98 - Physical Exam General: Alert, In no apparent distress, Oriented x3 HEENT: Atraumatic, Normocephalic, PERRLA Neck: Supple, 2+ carotid pulse no bruit, JVD not distended Respiratory: Clear to auscultation bilaterally, Normal air movement Cardiovascular: No edema, Normal pulses, Regular rate/rhythm, Normal S1 S2 Capillary refill: <2 Seconds Gastrointestinal: Normal bowel sounds, Soft and benign, Non-distended Musculoskeletal: No clubbing, No swelling, No contractures Integumentary: No rashes, No significant lesion, Skin breakdown, Skin lesion, Pressure ulcer Neurological: Normal speech, Normal strength at 5/5 x4 extr, Normal tone, Sensation intact, Cranial nerves 3-12 intact Lymphatics: No axilla or inguinal lymphadenopathy Assessment And Plan - Plan AMS: due to UTI: Continue rocephin and f/u urine cx. Hypokalemia: K is 3.2<- 3.7<- 2.6 <- 3.4. Will replete and monitor. Mag is 1.6. Hypomagnesemia: Mag is 1.6. Will replete and monitor. Hyponatremia: Na is 134<- 133. Will continue IVF and trend Na level. Volume depletion: Will continue IVF Cachexia: Pt was encouraged to eat. Pt refused to eat. Will continue TPN. Will place PEG tube today. Sacral wound Will continue iv vanc and rocephin. Will continue wound care and f/u wound cx. Gen surgeon will do I&D today. HTN: Will continue home med HLD: statin. Lipid profile is pending Hypothyroidism: Synthroid. Nutrition: Continue clinimix. Gen surgeon will place PEG tube today. DVT ppx: SCD Dispo: Pending hospital course
[2023-10-26] MEDS ORDERED: FENTANYL CITR 100 MCG/2 ML ONE (13:39)
[2023-10-26] MEDS ORDERED: propofoL 200 MG/20 ML VIAL IV ONE (13:39)
[2023-10-26 13:44] VITALS: BMI 16.5
[2023-10-26] MEDS ORDERED: Phenylephrine HCl 10 MG/ML 1 ML VIAL ONE (13:55)
[2023-10-26] MEDS: LIDOCAINE HCL/EPINEPHRINE 20 ML MDV ONE (14:10)
--- NOTE | 2023-10-26 14:21 | P.OP ---
Preoperative diagnosis: Sacral Stage IV Pressure Ulcer Postoperative diagnosis: Sacral Stage IV Pressure Ulcer Primary procedure: Debridement of Sacral Stage IV Pressure Ulcer Anesthesia: GETA + Local Estimated blood loss: <2cc Specimen: Debridement Tissue Findings: Sacral Stage IV Pressure Ulcer ~ 7cm Diameter Complications: None Transferred to: Recovery Room Condition: Good
[2023-10-26] MEDS: DEXTROSE 10%-WATER 500 ML IV ONE (15:10)
--- NOTE | 2023-10-26 15:27 | OP ---
Date of Procedure: 10/26/2023 Surgeon: Yimi Salas MD, Preoperative Diagnosis: Stage IV sacral pressure ulcer. Postoperative Diagnosis: Stage IV sacral pressure ulcer. Procedure Performed: Debridement of stage IV sacral pressure ulcer. Anesthesia: General endotracheal plus local with 1% lidocaine with epinephrine. Estimated Blood Loss: Less than 2 cc. Specimens: Debridement tissue. Findings: A sacral stage IV pressure ulcer approximately 7 cm in diameter. Complications: None. Disposition: The patient is transferred to recovery room in good condition. Procedure In Detail: After informed consent was obtained from patient's , patient was prepped and draped in the usual sterile fashion. After adequate anesthesia was achieved, I made a circular incision around the area of obvious necrosis of the sacrum down to remove all necrotic tissue, which went all the way down to the sacral bone, which was exposed at this point. There was necrotic muscle over the top of surrounding areas. The exposed bone was appreciated at the beginning of the procedu re. This was cleansed and scratched with a curette until smooth as there was spiculations to it. Th e area was irrigated copiously. Minimal hemostasis was required with electrocautery. The wound was then packed with Vashe-soaked dressing. Sterile dressing applied. The patient tolerated the procedu re well without incident or complications, transferred to PACU in good condition. All counts were correct at the end of the case. PARRISH/SERGO Voice ID: [id number] Report ID: [id number]
[2023-10-26] MEDS: D5 0.45 NS 1,000 ML IV SCH (20:27)
[2023-10-27 04:03] LABS: Absolute Eosinophils 0.1 K/uL (0-0.5); Absolute Lymphocytes (CBC) 1.2 K/uL (0.7-4.9); Absolute Monocytes 0.2 K/uL (0.1-1.3); Absolute Neutrophil 2.7 K/uL (1.8-8.0); Basophils % 0.5 % (0-1.3); Eosinophils % 1.7 % (0-4.4); Hematocrit 23.1 % (36.0-45.0); Hemoglobin 7.9 g/dL (12.0-15.0); MCH 27.5 pg (27.0-35.0); MCV 80.9 fL (80-100); MPV 8.3 fL (7.6-11.3); Monocytes % 4.3 % (3.3-12.3); Neutrophils % 64.5 % (41.7-73.7); Nucleated Red Blood Cells % 0.3 % (0-0); Platelets 234 thou/uL (152-406); RBC Red Blood Cell Count 2.86 M/uL (3.86-4.86)
[2023-10-27 04:09] LABS: Anion Gap 5.9 mEq/L (5.0-15.0); Phosphorus 2.5 mg/dL (2.5-4.9); Potassium 3.9 mEq/L (3.5-5.1)
[2023-10-27] MEDS: NA CHLORIDE 0.9% 500 ML ONE (09:15)
[2023-10-27] MEDS ORDERED: LIDOCAINE 1% MPF 5 ML VIAL ONE (09:44)
[2023-10-27] MEDS ORDERED: propofoL 200 MG/20 ML VIAL IV ONE (09:44)
[2023-10-27] MEDS ORDERED: EPHEDRINE SULF 50 MG/ML VIAL ONE (09:44)
--- NOTE | 2023-10-27 09:47 | P.PN ---
Subjective Date of Service: 10/27/23 Primary Care Provider: Jani Chief Complaint: Malnutrition, UTI, sacral osteo Subjective: Improving (pt with eyes open and following today. Set for peg placement today. at bedside. He is very concerned that as she becomes more alert, she will refuse medical treatment and he will not be able to help her get medical care.) <Claire Fung - Last Filed: 10/27/23 09:41> Date of Service: 10/27/23 <Alecia Steiner - Last Filed: 10/27/23 12:12> Review of Systems 10-point ROS is otherwise unremarkable General: As per HPI Integumentary: As per HPI Neurological: As per HPI <Claire Fung - Last Filed: 10/27/23 09:41> Physical Examination - Vital Signs Temperature: 97.3 F Blood Pressure: 170/72 Pulse: 81 Respirations: 15 Pulse Ox (%): 100 - Physical Exam General: Alert, Cachectic HEENT: Atraumatic, Normocephalic Neck: Supple Respiratory: Normal air movement Cardiovascular: Normal pulses Capillary refill: <2 Seconds Gastrointestinal: Soft and benign Musculoskeletal: No clubbing Integumentary: Pressure ulcer (covered with surgical dressing, ), Other (color improved even tho hemoglobin is lower, pressure wound to left ear pinna) Neurological: Abnormal speech, Abnormal strength, Abnormal sensation, Dementia Lymphatics: No axilla or inguinal lymphadenopathy External genitalia: Deferred Rectal: Deferred <Claire Fung - Last Filed: 10/27/23 09:41> Assessment And Plan - Plan Failure to thrive/weak/cachectic PICC for TPN/exterminator abx Consult SW for SNF placement Dehydrated Hydration Monitor and trend electrolytes - replete prn 10/24 PICC with TPN, blood glucose elevated despite long acting and bolus insulin 10/25 TPN paused/adjusted/stopped. Pt became hypoglycemic and D51/2NS started 10/26 taken to OR for peg placement UTI/Sacral wound with Osteomyelitis Rocepin 1 gm IVPB daily Vancomycin 1gm IVPB daily Rubin Offload pressure areas 10/25 taken to OR for sacral debridement HTN Monitor and trend HLD Lipids in am Hypothyroidism check TSH and eval medications <Claire Fung - Last Filed: 10/27/23 09:41> - Plan Pt seen and examined. I agree with the note by the HEDDLE MACHINE OPERATOR. S/p wound debridement by Gen Surgeon on 10/26/23. She will go to the OR today for PEG tube placement. Continue clinimix and iv abx. <Alecia Steiner - Last Filed: 10/27/23 12:12>
[2023-10-27 10:59] VITALS: O2SAT 98
[2023-10-27] MEDS: POTASSIUM PHOS IN 0.9 % NACL 15 MMOL/250 ML BAG IV ONE (13:28)
[2023-10-27] MEDS ORDERED: SODIUM CHLORIDE 0.9% 10ML INJ IV PRN (13:39)
[2023-10-27] MEDS: PANTOPRAZOLE 40 MG INJ IVP SCH (14:49)
[2023-10-28 05:22] LABS: Absolute Eosinophils 0.1 K/uL (0-0.5); Absolute Lymphocytes (CBC) 0.8 K/uL (0.7-4.9); Absolute Monocytes 0.2 K/uL (0.1-1.3); Absolute Neutrophil 2.4 K/uL (1.8-8.0); Basophils % 0.4 % (0-1.3); Eosinophils % 1.9 % (0-4.4); Hematocrit 22.5 % (36.0-45.0); Hemoglobin 7.6 g/dL (12.0-15.0); Lymphocytes % 22.9 % (15.3-44.8); MCH 27.6 pg (27.0-35.0); MCHC 33.9 g/dL (32.0-36.0); MCV 81.4 fL (80-100); Monocytes % 5.3 % (3.3-12.3); Neutrophils % 69.5 % (41.7-73.7); Nucleated Red Blood Cells % 0.4 % (0-0); Platelets 245 thou/uL (152-406); RBC Red Blood Cell Count 2.76 M/uL (3.86-4.86); Red Cell Distribution Width 15.5 % (12.1-15.2)
[2023-10-28 05:34] LABS: Anion Gap 9.3 mEq/L (5.0-15.0); Magnesium 1.6 mg/dL (1.6-2.4); Phosphorus 3.9 mg/dL (2.5-4.9); Potassium 3.3 mEq/L (3.5-5.1)
--- NOTE | 2023-10-28 07:49 | P.PN ---
Subjective Date of Service: 10/28/23 Primary Care Provider: Jani Chief Complaint: Malnutrition, UTI, sacral osteo Status post I&D of sacral wound, on IV antibiotics, Status post PEG tube placement for nutrition, plan to advance feeding slowly General: Alert, Cachectic HEENT: Atraumatic, Normocephalic Neck: Supple Respiratory: Normal air movement Cardiovascular: Normal pulses Capillary refill: <2 Seconds Gastrointestinal: Soft and benign Musculoskeletal: No clubbing Integumentary: Pressure ulcer (covered with surgical dressing, ), Other (color improved even tho hemoglobin is lower, pressure wound to left ear pinna) Neurological: Abnormal speech, Abnormal strength, Abnormal sensation, Dementia Lymphatics: No axilla or inguinal lymphadenopathy Review of Systems Per HPI Physical Examination - Vital Signs Temperature: 97.5 F Blood Pressure: 116/60 Pulse: 88 Respirations: 16 Pulse Ox (%): 99 Assessment And Plan - Plan Assessment And Plan Failure to thrive/weak/cachectic PICC for TPN/chcf abx Consult SW for SNF placement 10/26 OR for PEG tube placement. Continue clinimix and iv abx. Advance tube feedings low Elevated 30 degree Dehydrated Hydration Monitor and trend electrolytes - replete prn 10/24 PICC with TPN, blood glucose elevated despite long acting and bolus insulin 10/25 TPN paused/adjusted/stopped. Pt became hypoglycemic and D51/2NS started 10/26 taken to OR for peg placement UTI E. coli of the urine Sacral wound with Osteomyelitis Rocepin 1 gm IVPB daily Vancomycin 1gm IVPB daily Rubin Offload pressure areas 10/25 taken to OR for sacral debridement Blood cultures negative HTN Monitor and trend HLD Lipids in am Hypothyroidism check TSH and eval medication Disposition resident would like senior care Discharge Plan: Jail - Code Status/Comfort Care Code Status: Full Code Critical Care: No Time Spent Managing PTS Care (In Minutes): 35
[2023-10-28] MEDS: MAGNESIUM SULFATE 1 gm IVPB 1 GM/100 ML BAG IV ONE (08:36)
[2023-10-28] MEDS: POTASSIUM CL 40 MEQ in NA CHLORIDE 0.9% 500 ML IV SCH (09:48)
[2023-10-28] MEDS: GLUCERNA 1.5 CAL 1,000 ML BOT FT SCH (16:13)
[2023-10-28 18:30] LABS: Magnesium 1.8 mg/dL (1.6-2.4); Potassium 3.6 mEq/L (3.5-5.1)
[2023-10-28] MEDS ORDERED: JEVITY 1.2 CAL LIQUID 1,000 ML BOT FT SCH (20:00)
[2023-10-29 06:49] LABS: Anion Gap 7.2 mEq/L (5.0-15.0); Magnesium 1.6 mg/dL (1.6-2.4); Potassium 3.2 mEq/L (3.5-5.1)
[2023-10-29] MEDS: POTASSIUM 25 MEQ EFFERV TAB PO ONE (08:32)
[2023-10-29] MEDS: MAGNESIUM SULFATE 1 gm IVPB 1 GM/100 ML BAG IV ONE (08:32)
--- NOTE | 2023-10-29 09:48 | P.PN ---
Subjective Date of Service: 10/29/23 Primary Care Provider: Jani Chief Complaint: Malnutrition, UTI, sacral osteo Status post I&D of sacral wound, on IV antibiotics, Status post PEG tube placement for nutrition, plan to advance feeding slowly Monitor residuals General: Alert, Cachectic HEENT: Atraumatic, Normocephalic Neck: Supple Respiratory: Normal air movement Cardiovascular: Normal pulses Capillary refill: <2 Seconds Gastrointestinal: Soft and benign Musculoskeletal: No clubbing Integumentary: Pressure ulcer (covered with surgical dressing, ), Other (color improved even tho hemoglobin is lower, pressure wound to left ear pinna) Neurological: Abnormal speech, Abnormal strength, Abnormal sensation, Dementia Lymphatics: No axilla or inguinal lymphadenopathy Review of Systems per HPI Physical Examination - Vital Signs Temperature: 98.6 F Blood Pressure: 121/69 Pulse: 93 Respirations: 15 Pulse Ox (%): 100 - Studies Microbiology Data (last 24 hrs): 10/23/23 11:30 Blood - Blood Aerobic Blood Culture - Final No growth in 5 days. 10/23/23 11:30 Blood - Blood Anaerobic Blood Culture - Final No growth in 5 days. 10/23/23 11:05 Blood - Blood Aerobic Blood Culture - Final No growth in 5 days. 10/23/23 11:05 Blood - Blood Anaerobic Blood Culture - Final No growth in 5 days. Assessment And Plan - Plan Assessment And Plan Failure to thrive/weak/cachectic Protein calorie malnutrition PICC for TPN/fdc abx Consult SW for SNF placement 10/26 OR for PEG tube placement. Continue clinimix and iv abx. Advance tube feedings low Elevated 30 degree for tube feeding, monitor residuals Dehydrated Hydration Monitor and trend electrolytes - replete prn 10/24 PICC with TPN, blood glucose elevated despite long acting and bolus insulin 10/25 TPN paused/adjusted/stopped. Pt became hypoglycemic and D51/2NS started 10/26 taken to OR for peg placement UTI E. coli of the urine Sacral wound with Osteomyelitis Rocepin 1 gm IVPB daily Vancomycin 1gm IVPB daily Rubin Offload pressure areas 10/25 taken to OR for sacral debridement Blood cultures negative Ear pressure ulcer Wound care following Hypokalemia Trend electrolytes replace as needed HTN Monitor and trend HLD Lipids in am Hypothyroidism check TSH and eval medication Disposition resident would like penitentiary Discharge Plan: Intermediate Critical Care: No Time Spent Managing PTS Care (In Minutes): 35
[2023-10-29 16:50] VITALS: BP 102/52; TEMP 97.5
--- NOTE | 2023-10-29 17:56 | P.DS ---
Admission Date: 10/23/23 Discharge Date: 10/29/23 Primary Care Provider: Jani Disposition: TRANSFER TO SNF - MEDICAL Discharge Condition: GOOD Reason for Admission: Malnutrition, UTI, sacral osteo Brief History of Present Illness: Mrs. Ward is a 77-year-old cachectic, bedbound woman who comes from home via EMS for AMS, bedsore. Her has been trying to care for her. He states that she's refused help or any medical attention since mid January of last year. He relates that she does not have difficulty eating but just refused to eat starting mid January and by March she was unable to get out of bed. On exam she is confused, cachectic with thickened, mortise appearing skin. She moves her upper extremities and is noncommunicative. In an attempt to logroll her and look at her sacral wound, she does appear to have pain. Her is at bedside and states he is not qualified to care for her. Will request evaluation with social work for SNF placement. In the meantime, we will admit her for hydration, antibiotics for urinary tract infection and sacral wound with probable osteomyelitis, and TPN. - Physical Exam General: Cachectic, Disheveled, Confused HEENT: Atraumatic, Normocephalic Neck: Supple Respiratory: Normal air movement Cardiovascular: No edema, Normal pulses, Regular rate/rhythm Capillary refill: >2 Seconds Gastrointestinal: Other (schapoid) Musculoskeletal: No clubbing, Other (painful ROM of lower half of body) Integumentary: Pressure ulcer (foul smelling, wet), Other (white/yellow thickened skin over most of body, pallor) Neurological: Abnormal strength, Abnormal tone, Abnormal affect Lymphatics: No axilla or inguinal lymphadenopathy Hospital Course: 77 year-old patient presented with failure to thrive, sacral ulcer, was evaluated by surgery, PEG tube was placed for feeding. Condition improved with IV antibiotics, surgery evaluation, wound care, PEG tube placement by surgery.Patient tolerating diet, stable for discharge to home with follow-up appointment with primary care physician. Transition to correction facility for wound care, IV antibiotics PROBLEM: Failure to thrive PEG tube placed for feedings PICC for TPN/equipment operator intermodal yard abx for sacral osteomyelitis, need continued wound care Protein calorie malnutrition Cachexia Altered mental status likely secondary to UTI, patient was treated with IV antibiotics, treated with vancomycin, ceftriaxone UA positive for E. coli Blood cultures no growth Continue home medicines as previously prescribed GOAL: Clear understanding of disease process INSTRUCTIONS: Physician Discharge Instructions: -Follow-up with PCP in 1 to 2 weeks -Please call Dr. Darden at [phone] if any questions regarding hospital stay -Please call nursing station at [phone] if any nursing or medication questions -Return to the emergency room if symptoms worsen Diet: ADA, low sodium Activity: Fall precautions Vital Signs/Physical Exam: Temp Pulse Resp BP Pulse Ox 97.5 F 105 H 16 102/52 L 99 10/29/23 16:00 10/29/23 16:00 10/29/23 16:00 10/29/23 16:00 10/29/23 16:00 Laboratory Data at Discharge: WBC 3.50 thou/uL (4.3-10.9) L 10/28/23 04:40 Hgb 7.6 g/dL (12.0-15.0) L 10/28/23 04:40 Hct 22.5 % (36.0-45.0) L 10/28/23 04:40 Plt Count 245 thou/uL (152-406) 10/28/23 04:40 PT 14.2 SECONDS (9.5-12.5) H 10/23/23 10:49 INR 1.30 10/23/23 10:49 APTT 30.6 SECONDS (24.3-36.9) 10/23/23 10:49 Sodium 134 mEq/L (136-145) L 10/29/23 06:00 Potassium Cancelled 10/29/23 15:00 BUN 7 mg/dL (7-18) 10/29/23 06:00 Creatinine 0.45 mg/dL (0.55-1.02) L 10/29/23 06:00 Glucose 163 mg/dL (74-106) H 10/29/23 06:00 Phosphorus 3.9 mg/dL (2.5-4.9) 10/28/23 04:40 Magnesium 1.6 mg/dL (1.6-2.4) 10/29/23 06:00 Total Bilirubin 0.3 mg/dL (0.2-1.0) 10/26/23 03:55 AST < 10 U/L (15-37) L 10/26/23 03:55 ALT < 14 U/L (13-56) 10/26/23 03:55 Alkaline Phosphatase 60 U/L (45-117) 10/26/23 03:55 Triglycerides 182 mg/dL (<150) H 10/24/23 05:35 Cholesterol 151 mg/dL (<200) 10/24/23 05:35 HDL Cholesterol 22 mg/dL (40-60) L 10/24/23 05:35 Cholesterol/HDL Ratio 6.86 10/24/23 05:35 Home Medications: Collagenase [Santyl Ointment*] 1 appl TOP DAILY tube 10/29/23 Glucerna 1.5 Aniket 237 ml FT QID #120 bot 10/29/23 Insulin Lispro [Humalog*] See Protocol SQ AC ml 10/29/23 Mupirocin Calcium [Bactroban Nasal*] 1 appl AZEEM BID #1 tube 10/29/23 Pantoprazole Granules [Protonix Packet (for suspension)] 40 mg GT BID #60 packet 10/29/23 Quetiapine [Seroquel*] 25 mg PO BEDTIME #30 tab 10/29/23 Vancomycin/0.9 % Sod Chloride [Vancomycin HCl 1G/200 ml Bag] 1 gm IV Q12H #70 bag 10/29/23 New Medications: Mupirocin Calcium [Bactroban Nasal*] 1 appl AZEEM BID #1 tube Glucerna 1.5 Aniket 237 ml FT QID #120 bot Pantoprazole Granules [Protonix Packet (for suspension)] 40 mg GT BID #60 packet Quetiapine [Seroquel*] 25 mg PO BEDTIME #30 tab Vancomycin/0.9 % Sod Chloride [Vancomycin HCl 1G/200 ml Bag] 1 gm IV Q12H #70 bag Physician Discharge Instructions: -DC IV and DC home -Follow-up with PCP in 1 to 2 weeks -Follow-up with Surgery in 1 to 2 weeks -Please call Dr. Darden at [phone] if any questions regarding hospital stay -Please call nursing station at [phone] if any nursing or medication questions -Return to the emergency room if symptoms worsen Daily packing with Vashe damp to dry, pressure reduction with air mattress, and roll Q2 hours Diet: ADA Activity: Fall precautions Followup: Karthik Gunter DO, DO [Primary Care Provider] - 1-2 Weeks Yimi Salas MD [ACTIVE - CAN ADMIT] - 1-2 Weeks Time spent managing pt's care (in minutes): 55
[2023-10-29] MEDS ORDERED: Mupirocin NASAL 2 APPL/1 GM TUBE NAS SCH (21:00)
[2023-10-29] MEDS ORDERED: D5 0.45 NS 1,000 ML IV SCH (21:00)
== END 2023-10-29 17:49 | DRG 622 ==
LOC: ER 09:53 → ERHOLD 12:59 → 2ND 18:53
PROVIDERS: ADMIT Hospitalist; ATTEND Hospitalist
PROC: 02HV33Z Insertion of Infusion Device into Superior Vena Cava, Percutaneous Approach (ICD-10-PCS; 2023-10-23)
PROC: 3E0436Z Introduction of Nutritional Substance into Central Vein, Percutaneous Approach (ICD-10-PCS; 2023-10-23)
PROC: 0T9B70Z Drainage of Bladder with Drainage Device, Via Natural or Artificial Opening (ICD-10-PCS; 2023-10-23)
PROC: 0DH63UZ Insertion of Feeding Device into Stomach, Percutaneous Approach (ICD-10-PCS; 2023-10-26)
PROC: 0JB70ZZ Excision of Back Subcutaneous Tissue and Fascia, Open Approach (ICD-10-PCS; principal; 2023-10-26 10:45)
PROC: 0DB78ZX Excision of Stomach, Pylorus, Via Natural or Artificial Opening Endoscopic, Diagnostic (ICD-10-PCS; 2023-10-27)
DX: E11.69 Type 2 diabetes mellitus with other specified complication (principal); G93.41 Metabolic encephalopathy; L89.154 Pressure ulcer of sacral region, stage 4; K29.01 Acute gastritis with bleeding; N39.0 Urinary tract infection, site not specified; M86.8X8 Other osteomyelitis, other site; R64 Cachexia; Z68.1 Body mass index [BMI] 19.9 or less, adult; E87.1 Hypo-osmolality and hyponatremia; E11.52 Type 2 diabetes mellitus with diabetic peripheral angiopathy with gangrene; E46 Unspecified protein-calorie malnutrition; E11.65 Type 2 diabetes mellitus with hyperglycemia; E11.649 Type 2 diabetes mellitus with hypoglycemia without coma; I10 Essential (primary) hypertension; E78.5 Hyperlipidemia, unspecified; E03.9 Hypothyroidism, unspecified; E86.0 Dehydration; E87.6 Hypokalemia; E83.42 Hypomagnesemia; E86.9 Volume depletion, unspecified; F03.90 Unspecified dementia, unspecified severity, without behavioral disturbance, psychotic disturbance, mood disturbance, and anxiety; B96.20 Unspecified Escherichia coli [E. coli] as the cause of diseases classified elsewhere; Z79.4 Long term (current) use of insulin; Z74.01 Bed confinement status; Z91.040 Latex allergy status; Z79.890 Hormone replacement therapy; Z79.899 Other long term (current) drug therapy
CPT/HCPCS: 36415; 36569; 51702; 71045; 74177; 76705; 80048; 80053; 80061; 80202; 81001; 82947; 83605; 83735; 84100; 84132; 84443; 85025; 85610; 85730; 86850; 86900; 86901; 87040; 87077; 87086; 87088; 87186; 88304; 88305; 88312; 93005; 96365; 99285; C9113; J0360; J0696; J1650; J1815; J2001; J2371; J2704; J3010; J3475; J3480; J3590; J7030; J7040; J7050; J7799; Q9967

== ENCOUNTER 2023-11-11 09:42 | Emergency (ER) | payer OTHER, BC ==
[2023-11-11 10:27] LABS: Absolute Lymphocytes (CBC) 1.7 K/uL (0.7-4.9); Absolute Monocytes 0.5 K/uL (0.1-1.3); Absolute Neutrophil 6.9 K/uL (1.8-8.0); Basophils % 0.3 % (0-1.3); Eosinophils % 0.4 % (0-4.4); Hematocrit 26.7 % (36.0-45.0); Hemoglobin 8.9 g/dL (12.0-15.0); Lymphocytes % 19.1 % (15.3-44.8); MCH 28.7 pg (27.0-35.0); MCHC 33.6 g/dL (32.0-36.0); MCV 85.6 fL (80-100); MPV 7.6 fL (7.6-11.3); Monocytes % 5.2 % (3.3-12.3); Platelets 533 thou/uL (152-406); RBC Red Blood Cell Count 3.11 M/uL (3.86-4.86); Red Cell Distribution Width 18.9 % (12.1-15.2)
[2023-11-11 10:33] LABS: PT Prothrombin Time 12.5 SECONDS (9.5-12.5); PTT, Activated Partial Thromb 20.8 SECONDS (24.3-36.9); Protime INR 1.14
[2023-11-11 10:46] LABS: AST/SGOT 15 U/L (15-37); Albumin 2.2 g/dL (3.4-5.0); Albumin/Globulin Ratio 0.5 (1.1-1.8); Alkaline Phosphatase 81 U/L (45-117); Anion Gap 7.5 mEq/L (5.0-15.0); BUN Blood Urea Nitrogen 18 mg/dL (7-18); Bicarbonate 30 mEq/L (21-32); Bilirubin Total 0.3 mg/dL (0.2-1.0); Globulin 4.1 g/dL (2.3-3.5); Glomerular Filtration Rate 87 ml/min (=/>90); Glucose Level 197 mg/dL (74-106); Lipase 33 U/L (13-75); Potassium 3.5 mEq/L (3.5-5.1); Protein, Total 6.3 g/dL (6.4-8.2); Sodium Level 139 mEq/L (136-145); Troponin High Sensitivity 5.8 pg/mL (<58.9)
[2023-11-11 10:47] LABS: ALT/SGPT < 14 U/L (13-56)
--- NOTE | 2023-11-11 10:58 | RAD REPORT ---
EXAM DESCRIPTION: CT - Head Brain Wo Cont - 11/11/2023 10:48 am CLINICAL HISTORY: MENTAL STATUS CHANGE Headache, drowsiness COMPARISON: HEAD BRAIN W O CONTRAST dated 04/18/2007 TECHNIQUE: All CT scans are performed using dose optimization technique as appropriate and may inclu de automated exposure control or mA/KV adjustment according to patient size. FINDINGS: No intracranial hemorrhage, hydrocephalus or extra-axial fluid collection.Moderate general ized brain atrophy is present with moderate periventricular and deep white matter chronic microvascul ar ischemic changes.No areas of brain edema or evidence of midline shift. Bilateral mastoid effusions. The calvarium is intact. IMPRESSION: No acute intracranial abnormality. Bilateral mastoid effusions.
--- NOTE | 2023-11-11 11:02 | RAD REPORT ---
EXAM DESCRIPTION: RAD - Chest Single View - 11/11/2023 10:56 am CLINICAL HISTORY: AMS Chest pain. COMPARISON: Chest Single View dated 10/23/2023; Chest Single View dated 10/23/2023; Chest Single View dated 02/14/2020; CHEST PA AND LAT 2 VIEW dated 10/05/2014 FINDINGS: Portable technique limits examination quality. The lungs are grossly clear. The heart is normal in size. No displaced fractures.Right-sided venous c atheter has tip in the SVC. IMPRESSION: No acute intrathoracic process suspected.
[2023-11-11 11:31] LABS: Specific Gravity 1.008 (1.005-1.030); Sqamous Epithelial <5 /HPF (None Seen); Urine Bacteria None Seen /HPF (<20); Urine Bilirubin NEGATIVE (Negative); Urine Blood Trace (Negative); Urine Clarity Extremely Turbid (Clear); Urine Color Light-Yellow (Yellow); Urine Culture Reflex Order REFLEXED; Urine Glucose NEGATIVE (Negative); Urine Ketones NEGATIVE (Negative); Urine Microscopic Reflex YN ORDER UMIC; Urine Mucus Slight /HPF (None Seen); Urine Nitrite NEGATIVE (Negative); Urine Protein TRACE (Negative); Urine Urobilinogen Normal (Normal); Urine WBC 20-50 /HPF (<5); Urine pH 7.5 (5.0-7.0)
[2023-11-11] MEDS ORDERED: CEFTRIAXONE 1000 MG/VIAL ONE (11:38)
[2023-11-11] MEDS ORDERED: NA CHLORIDE 0.9% 50 ML ONE (11:39)
--- NOTE | 2023-11-11 11:45 | ER ---
Nurse's Notes [facility] Name: Betina Ward Age: 77 yrs Sex: Female : 1945 Arrival Date: 11/11/2023 Time: 09:42 Bed 3 Private MD: Diagnosis: Near syncope, UTI, altered mental status resolved Presentation: 11/10 09:46 Chief complaint: EMS states: they were toned out to [place] for unresponsiveness with kc6 a pulse. Coronavirus screen: At this time, the client does not indicate any symptoms associated with coronavirus-19. Ebola Screen: No symptoms or risks identified at this time. Initial Sepsis Screen: Does the patient meet any 2 criteria? Altered Mental Status. No. Patient's initial sepsis screen is negative. Does the patient have a suspected source of infection? No. Patient's initial sepsis screen is negative. Risk Assessment: Do you want to hurt yourself or someone else? Patient reports no desire to harm self or others. Onset of symptoms was November 11, 2023. 09:46 Method Of Arrival: EMS: [facility] 09:46 Acuity: RIANA 2 kc6 Triage Assessment: 09:53 General: Appears in no apparent distress. Behavior is unresponsive. Pain: Unable to use db pain scale. Neuro: Level of Consciousness is lethargic, unresponsive, Oriented to none. Respiratory: Airway is patent Respiratory effort is even, unlabored, Respiratory pattern is regular, symmetrical. Historical: - Allergies: 09:53 Latex; db - PMHx: 09:53 Diabetes - IDDM; Hyperlipidemia; Glaucoma; Hypertension; Hypothyroidism; db - Immunization history:: Adult Immunizations unknown. - Infectious Disease History:: Denies. - Social history:: Smoking status: unknown. Screenin:46 [facility] ED Fall Risk Assessment (Adult) History of falling in the last 3 months, kc6 including since admission No falls in past 3 months (0 pts) Confusion or Disorientation Yes (5 pts) Intoxicated or Sedated No (0 pts) Impaired Gait Yes (1 pt) Mobility Assist Device Used Yes (1 pt) Altered Elimination Yes (1 pt) Score/Fall Risk Level 3 or more points = High Risk. Abuse screen: Denies threats or abuse. Denies injuries from another. Nutritional screening: No deficits noted. Tuberculosis screening: No symptoms or risk factors identified. Assessment: 09:55 Reassessment: Patient appears in no apparent distress at this time. SEE TRIAGE FOR db INITIAL ASSESSMENT. 09:55 General: Appears in no apparent distress. comfortable, Behavior is calm, cooperative. db Pain: Denies pain. Cardiovascular: No deficits noted. Respiratory: Airway is patent Respiratory effort is even, unlabored, Respiratory pattern is regular, symmetrical. GI: No deficits noted. No signs and/or symptoms were reported involving the gastrointestinal system. : Rubin in place PRESENT UPON ARRIVAL. 10:30 Reassessment: Patient appears in no apparent distress at this time. No changes from db previously documented assessment. Patient and/or family updated on plan of care and expected duration. Pain level reassessed. 11:30 Reassessment: Patient appears in no apparent distress at this time. No changes from db previously documented assessment. Patient and/or family updated on plan of care and expected duration. Pain level reassessed. IS AT PATIENT BEDSIDE. 12:23 Reassessment: Patient appears in no apparent distress at this time. Patient and/or db family updated on plan of care and expected duration. Pain level reassessed. Neuro: Level of Consciousness is awake, alert, confused, Oriented to person. 12:23 Reassessment:. db 12:45 Reassessment: EMS AT PATIENT BEDSIDE FOR TRANSPORT BACK TO [facility]. db Vital Signs: 09:45 BP 105 / 75; Pulse 86; Resp 18; Pulse Ox 100% on R/A; db 09:46 BP 117 / 62; Pulse 85; Resp 18 S; Temp 97.9(A); Pulse Ox 99% on R/A; kc6 10:00 BP 98 / 84; Pulse 84; Resp 20; Pulse Ox 100% ; db 11:14 BP 99 / 75; Pulse 98; Resp 15 S; Pulse Ox 100% on R/A; kc6 11:36 BP 146 / 68; Pulse 91; Resp 18; Pulse Ox 100% ; db 12:00 BP 118 / 51; Pulse 87; Resp 17; Pulse Ox 100% on R/A; db ED Course: 09:46 Patient arrived in ED. 6 09:46 Arm band placed on. EKG completed in triage. Results shown to MD. [facility] 09:46 Patient has correct armband on for positive identification. Bed in low position. Call kc6 light in reach. Side rails up X2. Adult w/ patient. monitor car operator on. Pulse ox on. NIBP on. Warm blanket given. Pillow given. 09:47 Chata Coreas MD is Attending Physician. sp3 09:47 Triage completed. kc6 09:53 Venus Kothari, RN is Primary Nurse. db 10:44 Inserted saline lock: 22 gauge in left wrist, using aseptic technique. Blood collected. rc3 10:48 Blood Culture Adult (2) Sent. rc3 10:50 CT Head Brain wo Cont In Process Unspecified. EDMS 10:58 Chest Single View XRAY In Process Unspecified. EDMS 12:45 Provided Education on: DISCHARGE. db 12:45 No provider procedures requiring assistance completed. IV discontinued, intact, db bleeding controlled, No redness/swelling at site. Administered Medications: 11:40 Drug: Rocephin - Rocephin (cefTRIAXone) IVPB 1 grams IVPB once over 30 mins; (mix in 50 db mL NS) Route: IVPB; Infused Over: 30 mins; Site: left hand; 12:09 Follow up: Response: No adverse reaction; IV Status: Completed infusion; IV Intake: ll1 100ml Medication: 12:45 VIS not applicable for this client. db Intake: 12:09 IV: 100ml; Total: 100ml. ll1 Outcome: 11:44 Discharge ordered by . sp3 12:24 Discharged to [facility]. Report called to CASANDRA db 12:45 Discharged to EMS ARRIVED FOR TRANSPORT db 12:45 Condition: stable 12:45 Discharge instructions given to [facility], EMS, Instructed on discharge instructions, follow up and referral plans. Prescriptions given X 1, 12:47 Patient left the ED. db Addendum: 11/14/2023 08:22 Addendum: Culture Results: Positive urine culture. Bacteria is resistant to, has s s intermediate sensitivity, or is not tested against prescribed antibiotics. Report given to JOSEPH for further evaluation and then to stranner for follow up with patient. Phone call Attempt #1 Called, no answer. Left . 08:53 Addendum: Other Faxed culture report to [place] fax # AURELIO Zepeda RN. j b4 Signatures: Dispatcher [employer] EDCarleen Stanley RN RN Winston Jaramillo RN RN jb4 James Rosa RN RN ll1 Chata Coreas MD MD sp3 Janis Morelos RN RN kc6 Venus Kothari RN RN db Sulma Newman3 Corrections: (The following items were deleted from the chart) 11/10 12:24 09:55 Reassessment: Patient appears in no apparent distress at this time. Patient db and/or family updated on plan of care and expected duration. Pain level reassessed. db 09:55 Neuro: Level of Consciousness is awake, alert, confused, Oriented to person, db db 11:30 Reassessment: Patient appears in no apparent distress at this time. No changes db from previously documented assessment. Patient and/or family updated on plan of care and expected duration. Pain level reassessed. db
--- NOTE | 2023-11-11 11:45 | EDPHYS ---
Physician Documentation [facility] Name: Betina Ward Age: 77 yrs Sex: Female : 1945 Arrival Date: 11/11/2023 Time: 09:42 Bed 3 Private MD: ED Physician Chata Coreas HPI: 11/10 10:50 This 77 yrs old Female presents to ER via EMS with complaints of Altered mental status. sp3 10:50 77-year-old female with a history of advanced dementia, diabetes, hyperlipidemia, sp3 hypertension presents to the ED via EMS for altered mental status. Patient was being prepped by the [facility] to go to a routine doctor's appointment where she was found to be altered, decreased responsive and hypotensive with 60 systolic palpated blood pressure. EMS was activated who arrived to find patient in similar condition who slowly started to become more awake and toned presumably back to somewhat baseline. Blood pressure also improved spontaneously. Patient is nonverbal and has advanced dementia and therefore review systems, history and physical are all severely limited. Patient does have a DNR in place with a copy here at the hospital. Patient is not under hospice care for any reason.. Historical: - Allergies: 09:53 Latex; db - PMHx: 09:53 Diabetes - IDDM; Hyperlipidemia; Glaucoma; Hypertension; Hypothyroidism; db - Immunization history:: Adult Immunizations unknown. - Infectious Disease History:: Denies. - Social history:: Smoking status: unknown. ROS: 10:52 Unable to obtain ROS due to altered mental status, baseline dementia, sp3 Exam: 11:01 Head/Face: Normocephalic, atraumatic. Neck: Trachea midline, no thyromegaly or masses sp3 palpated, and no cervical lymphadenopathy. Supple, full range of motion without nuchal rigidity, or vertebral point tenderness. No Meningismus. Chest/axilla: Normal chest wall appearance and motion. Nontender with no deformity. No lesions are appreciated. Cardiovascular: Regular rate and rhythm with a normal S1 and S2. No gallops, murmurs, or rubs. Normal PMI, no JVD. No pulse deficits. Respiratory: Lungs have equal breath sounds bilaterally, clear to auscultation and percussion. No rales, rhonchi or wheezes noted. No increased work of breathing, no retractions or nasal flaring. Abdomen/GI: Soft, non-tender, with normal bowel sounds. No distension or tympany. No guarding or rebound. No evidence of tenderness throughout. MS/ Extremity: Pulses equal, no cyanosis. Neurovascular intact. Full, normal range of motion. 11:01 Neuro: Patient protecting her airway. She is awake but nonverbal. Opens eyes spontaneously and does withdraw to pain. No obvious focal deficits noted. Patient likely at her baseline. Vital signs are within normal limits., 11:04 ECG was reviewed by the Attending Physician. EKG demonstrates normal sinus rhythm at 84 sp3 bpm with normal intervals, normal QRS, normal axis, nonspecific diffuse ST's ST changes without evidence of acute ischemia. Vital Signs: 09:45 BP 105 / 75; Pulse 86; Resp 18; Pulse Ox 100% on R/A; db 09:46 BP 117 / 62; Pulse 85; Resp 18 S; Temp 97.9(A); Pulse Ox 99% on R/A; kc6 10:00 BP 98 / 84; Pulse 84; Resp 20; Pulse Ox 100% ; db 11:14 BP 99 / 75; Pulse 98; Resp 15 S; Pulse Ox 100% on R/A; kc6 11:36 BP 146 / 68; Pulse 91; Resp 18; Pulse Ox 100% ; db 12:00 BP 118 / 51; Pulse 87; Resp 17; Pulse Ox 100% on R/A; db MDM: 09:49 Patient medically screened. sp3 11:02 Data reviewed: vital signs, nurses notes, EMS record, [facility] records, lab test sp3 result(s), EKG, radiologic studies. ED course: 77-year-old female with PMH above with altered mental status now resolving. Differential diagnosis includes medication reaction, TIA/CVA spectrum, intracranial pathology, electrolyte abnormality, ACS, UTI or other infection, among others. Also consider vasovagal syncope or near syncope. Blood sugar was normal upon arrival. Full septic workup ordered as well as CT scan of the head and chest x-ray. Patient is DNR and once family gets here we will discuss options for disposition.. 11/10 09:50 Order name: Blood Culture Adult (2) sp3 11/10 09:50 Order name: CBC with Diff; Complete Time: 11:04 sp3 11/10 09:50 Order name: CMP; Complete Time: 11: sp3 11/10 09:50 Order name: Lactate w/ 2H reflex if indic.; Complete Time: 11:04 sp3 11/10 09:50 Order name: Protime (+inr); Complete Time: 11:04 sp3 11/10 09:50 Order name: Ptt, Activated; Complete Time: 11:04 sp3 11/10 09:50 Order name: Urinalysis w/ reflexes; Complete Time: 11:32 sp3 11/10 09:51 Order name: Troponin High Sensitivity; Complete Time: 11:04 sp3 11/10 09:51 Order name: Lipase; Complete Time: 11:04 sp3 11/10 11:34 Order name: Urine Culture EDMS 11/10 09:50 Order name: Chest Single View XRAY; Complete Time: 11:04 sp3 11/10 09:50 Order name: CT Head Brain wo Cont; Complete Time: 11:04 sp3 11/10 09:50 Order name: Cardiac monitoring; Complete Time: 09:53 sp3 11/10 09:50 Order name: EKG - Nurse/Tech; Complete Time: 09:53 3 11/10 09:50 Order name: IV Saline Lock - Large Bore; Complete Time: 09:53 3 11/10 09:50 Order name: Labs collected and sent; Complete Time: 09:53 sp3 11/10 09:50 Order name: O2 Per Protocol; Complete Time: 09:53 sp3 11/10 09:50 Order name: O2 Sat Monitoring; Complete Time: 09:53 sp3 11/10 09:50 Order name: Vital Signs; Complete Time: 09:53 3 Administered Medications: 11:40 Drug: Rocephin - Rocephin (cefTRIAXone) IVPB 1 grams IVPB once over 30 mins; (mix in 50 db mL NS) Route: IVPB; Infused Over: 30 mins; Site: left hand; 12:09 Follow up: Response: No adverse reaction; IV Status: Completed infusion; IV Intake: ll1 100ml Disposition Summary: 11/11/23 11:44 Discharge Ordered Notes: Location: Home sp3 Condition: Stable sp3 Diagnosis - Near syncope, UTI, altered mental status resolved sp3 Followup: sp3 - With: Private Physician - When: Upon discharge from the Emergency Department - Reason: Continuance of care Discharge Instructions: - Discharge Summary Sheet sp3 - Near-Syncope sp3 - Urinary Tract Infection, Adult sp3 Forms: - Medication Reconciliation Form sp3 - Antibiotic Education sp3 - Prescription Opioid Use sp3 - Patient Portal Instructions sp3 - Leadership Thank You Letter sp3 Prescriptions: - Bactrim DS 800-160 mg Oral Tablet - take 1 tablet ORAL route every 12 hours for 3 days; 6 tablet; Refills: 0, sp3 Product Selection Permitted Signatures: Dispatcher [employer] EDMS Chata Coreas MD MD sp3 Venus Kothari RN RN db James Rosa RN ll1 Corrections: (The following items were deleted from the chart) 09:51 09:51 BLOOD CULTURE*+BA.LAB.BRZ ordered. EDMS EDMS 09:51 09:51 CBC+H.LAB.BRZ ordered. EDMS EDMS 09:51 09:51 COMPREHENSIVE METABOLIC PANEL+C.LAB.BRZ ordered. EDMS EDMS 09:51 09:51 LACTATE+C.LAB.BRZ ordered. EDMS EDMS 09:51 09:51 PROTIME (+INR)+COAG.LAB.BRZ ordered. EDMS EDMS 09:51 09:51 PTT, ACTIVATED+COAG.LAB.BRZ ordered. EDMS EDMS 09:51 09:51 Urinalysis+U.LAB.BRZ ordered. EDMS EDMS 09:51 09:51 Chest Single View+RAD.RAD.BRZ ordered. EDMS EDMS 09:51 09:51 Head Brain Wo Cont+CT.RAD.BRZ ordered. EDMS EDMS
[2023-11-11 13:01] VITALS: BP 118/51; TEMP 97.9; O2SAT 100
--- NOTE | 2023-11-12 15:10 | EKG ---
Test Date: 2023-11-11 Test Time: 09:49:09 Trestle Mechanic: LEONIDAS MEASUREMENT RESULTS: Intervals: Rate: 84 MI: 140 QRSD: 68 QT: 392 QTc: 463 Prospect: P: 81 MI: 140 QRS: 25 T: 55 INTERPRETIVE STATEMENTS: Sinus rhythm Normal ECG Compared to ECG 10/23/2023 10:41:30 No significant changes Electronically Signed On 11-12-23 15:06:35 CDT by Raimundo Horn
== END 2023-11-11 12:47 | disposition home or self-care (01) ==
LOC: ER 09:42
DX: N39.0 Urinary tract infection, site not specified (principal)
CPT/HCPCS: 96365; 93005; 87040 ×2; 87088; 85025; 81001; 87086; 36415; 85610; 83605; 85730; 87077; 87186; 84484; 83690; 80053; 70450; 71045; 99285; J0696

== ENCOUNTER 2023-12-05 08:51 | Emergency (ER) | payer OTHER, BC ==
--- NOTE | 2023-12-05 09:27 | RAD REPORT ---
EXAM DESCRIPTION: CT - Head Brain Wo Cont - 12/05/2023 9:20 am CLINICAL HISTORY: AMS COMPARISON: Head Brain Wo Cont dated 11/11/2023; HEAD BRAIN W O CONTRAST dated 04/18/2007 TECHNIQUE: All CT scans are performed using dose optimization technique as appropriate and may inclu de automated exposure control or mA/KV adjustment according to patient size. FINDINGS: No intracranial hemorrhage, hydrocephalus or extra-axial fluid collection.No areas of brai n edema or evidence of midline shift. Cerebral atrophy and chronic small vessel ischemic changes. Bilateral mastoid effusions. The calvarium is intact. IMPRESSION: No acute intracranial abnormality.
[2023-12-05] MEDS ORDERED: NA CHLORIDE 0.9% 500 ML ONE ×2 (09:48→12:10)
[2023-12-05 09:57] LABS: Absolute Eosinophils 0.1 K/uL (0-0.5); Absolute Monocytes 0.3 K/uL (0.1-1.3); Absolute Neutrophil 3.7 K/uL (1.8-8.0); Basophils % 0.4 % (0-1.3); Eosinophils % 1.3 % (0-4.4); Hematocrit 43.1 % (36.0-45.0); Hemoglobin 14.1 g/dL (12.0-15.0); Lymphocytes % 19.9 % (15.3-44.8); MCH 27.3 pg (27.0-35.0); MCHC 32.6 g/dL (32.0-36.0); MCV 83.7 fL (80-100); MPV 7.4 fL (7.6-11.3); Monocytes % 6.1 % (3.3-12.3); Neutrophils % 72.3 % (41.7-73.7); Nucleated Red Blood Cells % 0.6 % (0-0); Platelets 294 thou/uL (152-406); RBC Red Blood Cell Count 5.15 M/uL (3.86-4.86); Red Cell Distribution Width 17.1 % (12.1-15.2)
[2023-12-05 10:02] LABS: PT Prothrombin Time 13.4 SECONDS (9.4-12.5); PTT, Activated Partial Thromb 22.5 SECONDS (24.3-36.9); Protime INR 1.23
[2023-12-05 10:15] LABS: Anion Gap 8.1 mEq/L (5.0-15.0); Magnesium 1.9 mg/dL (1.6-2.4); Potassium 3.1 mEq/L (3.5-5.1)
--- NOTE | 2023-12-05 10:17 | RAD REPORT ---
EXAM DESCRIPTION: RAD - Chest Single View - 12/05/2023 10:07 am CLINICAL HISTORY: AMS COMPARISON: Chest Single View dated 11/11/2023; Chest Single View dated 10/23/2023; Chest Single View dated 10/23/2023; Chest Single View dated 02/14/2020 FINDINGS: Lines: None. Lungs: No evidence of edema or pneumonia. Pleural: No significant pleural effusions or pneumothorax. Cardiac: The heart size is within normal limits. Mediastinum: Within normal limits. Bones: No acute fractures. Other: None IMPRESSION: No acute cardiopulmonary disease.
[2023-12-05 11:17] LABS: Calcium Oxalate Crystals- Ur Few /HPF (None Seen); Specific Gravity 1.016 (1.005-1.030); Sqamous Epithelial <5 /HPF (None Seen); Urine Bacteria <20 /HPF (<20); Urine Bilirubin NEGATIVE (Negative); Urine Blood Negative (Negative); Urine Clarity Extremely Turbid (Clear); Urine Color Yellow (Yellow); Urine Culture Reflex Order REFLEXED; Urine Glucose NEGATIVE (Negative); Urine Ketones NEGATIVE (Negative); Urine Microscopic Reflex YN ORDER UMIC; Urine Mucus Slight /HPF (None Seen); Urine Nitrite NEGATIVE (Negative); Urine Protein TRACE (Negative); Urine Urobilinogen Normal (Normal); Urine WBC >50 /HPF (<5); Urine pH 5.5 (5.0-7.0)
[2023-12-05] MEDS ORDERED: KCL 20 MEQ/100 mL IVPB 100 ML IV ONE (11:39)
--- NOTE | 2023-12-05 12:32 | EDPHYS ---
Physician Documentation [facility] Name: Betina Ward Age: 78 yrs Sex: Female : 1945 Arrival Date: 12/05/2023 Time: 08:51 Bed 10 Private MD: ED Physician Amari Benton HPI: 12/04 09:12 This 78 yrs old Female presents to ER via EMS with complaints of AMS. rn 09:12 The patient presents with decreased responsiveness. Onset: The symptoms/episode rn began/occurred at an unknown time. Associated signs and symptoms: Pertinent negatives: abdominal pain, chest pain, diarrhea, headache, seizure, shortness of breath, vomiting. Current symptoms: In the emergency department the patient's symptoms have improved. The patient has experienced similar episodes in the past. EMS reports sent from [facility] for decreased responsiveness. They are having difficulty waking her up and feeding her this morning. states has wound VAC, sacral wound for the last month, wound improving overall. states has some days like this where is lethargic and some good days. No fever. No vomiting or diarrhea. No cough or shortness of breath. Patient denies focal pain.. Historical: - Allergies: 09:03 Latex; bp - PMHx: 09:03 Diabetes - IDDM; Hyperlipidemia; Glaucoma; Hypertension; Hypothyroidism; bp - Immunization history:: Adult Immunizations up to date. - Infectious Disease History:: Denies. - Social history:: Smoking status: Patient denies any tobacco usage or history of. - Family history:: not pertinent. - Hospitalizations: : No recent hospitalization is reported. ROS: 09:12 Constitutional: Negative for fever, chills, and weight loss, Eyes: Negative for injury, rn pain, redness, and discharge, ENT: Negative for injury, pain, and discharge, Neck: Negative for injury, pain, and swelling, Cardiovascular: Negative for chest pain, palpitations, and edema, Respiratory: Negative for shortness of breath, cough, wheezing, and pleuritic chest pain, Abdomen/GI: Negative for abdominal pain, nausea, vomiting, diarrhea, and constipation, Back: Negative for injury and pain, MS/Extremity: Negative for injury and deformity, Neuro: Positive for generalized weakness Exam: 09:12 Constitutional: This is a well developed, well nourished patient who is awake, alert, rn and in no acute distress. Head/Face: Normocephalic, atraumatic. ENT: Dry mucous membranes Cardiovascular: Regular rate and rhythm. No pulse deficits. Respiratory: No increased work of breathing, no retractions or nasal flaring. Abdomen/GI: Soft, non-tender MS/ Extremity: Pulses equal, no cyanosis. Neuro: Awake and alert, GCS 15, oriented to person, place, time. Cranial nerves II-XII grossly intact. Motor strength 4/5 in all extremities. Sensory grossly intact. 12:16 ECG was reviewed by the Attending Physician. rn Vital Signs: 08:57 BP 115 / 56; Pulse 93; Resp 17; Temp 97.8(O); Pulse Ox 97% on R/A; rs5 12:00 BP 117 / 62; Pulse 70; Resp 17; Pulse Ox 99% on R/A; rs5 14:01 BP 120 / 66; Pulse 72; Resp 17; Pulse Ox 99% on R/A; rs5 MDM: 08:58 Patient medically screened. rn 12:03 ED course: reports patient currently at her baseline. No acute findings and rn workup here. Mild hypokalemia and dehydration noted. CT head negative. Urine is negative for nitrate or bacteria.. 12:30 Differential Diagnosis: CVA, electrolyte abnormality, pneumonia, UTI, volume depletion, rn Dehydration, deconditioning. Data reviewed: vital signs, nurses notes, lab test result(s), radiologic studies, CT scan, plain films, and as a result, I will discharge patient. Counseling: I had a detailed discussion with the patient and/or guardian regarding the historical points, exam findings, and any diagnostic results supporting the discharge/admit diagnosis, lab results, radiology results, the need for outpatient follow up, to return to the emergency department if symptoms worsen or persist or if there are any questions or concerns that arise at home. Response to treatment: the patient's condition has returned to base line. Special discussion: I discussed with the patient/guardian in detail that at this point there is no indication for admission to the hospital. It is understood, however, that if the symptoms persist or worsen the patient needs to return immediately for re-evaluation. 12:30 ED course: I have personally reviewed all of the results, including but not limited to rn blood tests and imaging deemed necessary to safely discharge this patient at this time. All results given to and printed out for patient. I personally went over all the results with the patient and answered all questions. Patient will follow-up with PCP and or specialist as discussed. Return precautions given and understood.. 12/04 09:09 Order name: CBC with Diff; Complete Time: 10: rn 12/04 09:09 Order name: Basic Metabolic Panel; Complete Time: 10: rn 12/04 09:09 Order name: Urinalysis w/ reflexes; Complete Time: 11:19 rn 12/04 09:10 Order name: Protime (+inr); Complete Time: 10: rn 12/04 09:10 Order name: Ptt, Activated; Complete Time: : rn 12/04 09:52 Order name: Magnesium; Complete Time: 10: EDMS 12/04 11:21 Order name: Urine Culture EDMT 12/04 09:09 Order name: CT Head Brain wo Cont; Complete Time: 10: rn 12/04 09:09 Order name: XRAY Chest (1 view); Complete Time: 10: rn 12/04 09:10 Order name: EKG; Complete Time: 09:10 rn 12/04 09:09 Order name: IV Start; Complete Time: 11: rn 12/04 09:10 Order name: EKG - Nurse/Tech; Complete Time: 10: rn 12/04 09:10 Order name: Cardiac monitoring; Complete Time: 10: rn 12/04 09:10 Order name: O2 Sat Monitoring; Complete Time: 10: rn EC:16 Rate is 85 beats/min. Rhythm is regular. QRS Dow is Normal. TN interval is normal. QRS rn interval is normal. QT interval is normal. No Q waves. T waves are Normal. No ST changes noted. Clinical impression: Normal ECG. Interpreted by me. Reviewed by me. Administered Medications: 09:30 Drug: NS 0.9% IV 500 ml IV at bolus once Route: IV; Rate: bolus; Site: right wrist; rs5 10:02 Follow up: IV Status: Completed infusion; IV Intake: 500ml rs5 11:30 Drug: Potassium Chloride IV 10 mEq IV at calculated rate once; administer over 1-2 rs5 hours Route: IV; Rate: calculated rate; Site: right wrist; 12:01 Follow up: Response: No adverse reaction rs5 12:07 Drug: NS 0.9% IV 500 ml IV at bolus once Route: IV; Rate: bolus; Site: right wrist; rs5 12:45 Follow up: IV Status: Completed infusion; IV Intake: 500ml rs5 Disposition Summary: 12/05/23 12:31 Discharge Ordered Notes: Location: Home rn Problem: new rn Symptoms: have improved rn Condition: Stable rn Diagnosis - Dehydration rn - Hypokalemia rn Followup: rn - With: Private Physician - When: As needed - Reason: Recheck today's complaints, Re-evaluation by your physician Discharge Instructions: - Discharge Summary Sheet rn - Dehydration, Adult rn - Hypokalemia rn Forms: - Medication Reconciliation Form rn - Antibiotic seed corn manager production - Prescription Opioid Use rn - Patient Portal Instructions rn - Leadership Thank You Letter rn Signatures: Dispatcher [employer] EDAmari Presley MD MD rn Peltier, Brian, RN Issa Mckenzie, RN RN rs5 Corrections: (The following items were deleted from the chart) 09:14 09:12 Constitutional: Negative for fever, chills, and weight loss, Eyes: Negative for rn injury, pain, redness, and discharge, ENT: Negative for injury, pain, and discharge, Neck: Negative for injury, pain, and swelling, Cardiovascular: Negative for chest pain, palpitations, and edema, Respiratory: Negative for shortness of breath, cough, wheezing, and pleuritic chest pain, Abdomen/GI: Negative for abdominal pain, nausea, vomiting, diarrhea, and constipation, Back: Negative for injury and pain, MS/Extremity: Negative for injury and deformity, Skin: Negative for injury, rash, and discoloration, Neuro: Positive for generalized weakness rn 09:52 09:11 MAGNESIUM+C.LAB.BRZ ordered. EDMS EDMS
--- NOTE | 2023-12-05 12:32 | ER ---
Nurse's Notes [facility] Name: Betina Ward Age: 78 yrs Sex: Female : 1945 Arrival Date: 12/05/2023 Time: 08:51 Bed 10 Private MD: Diagnosis: Dehydration;Hypokalemia Presentation: 12/04 09:03 Chief complaint: EMS states: SENT FROM [facility] FOR "HIGH POTASSIUM" FOUND bp DURING ROUTINE LABS 2 DAYS AGO. Coronavirus screen: At this time, the client does not indicate any symptoms associated with coronavirus-19. Ebola Screen: No symptoms or risks identified at this time. Initial Sepsis Screen: Does the patient meet any 2 criteria? No. Patient's initial sepsis screen is negative. Does the patient have a suspected source of infection? No. Patient's initial sepsis screen is negative. Risk Assessment: Do you want to hurt yourself or someone else? Patient reports no desire to harm self or others. Onset of symptoms is unknown. 09:03 Method Of Arrival: EMS: [facility] bp 09:03 Acuity: RIANA 3 bp Triage Assessment: 09:03 General: Appears in no apparent distress. Behavior is AT BASELINE. Pain: Unable to use bp pain scale. Does not appear to understand pain scale. EENT: No deficits noted. Neuro: Level of Consciousness is AT BASELINE. Cardiovascular: Rhythm is sinus rhythm. Respiratory: No deficits noted. GI: No signs and/or symptoms were reported involving the gastrointestinal system. Historical: - Allergies: 09:03 Latex; bp - PMHx: 09:03 Diabetes - IDDM; Hyperlipidemia; Glaucoma; Hypertension; Hypothyroidism; bp - Immunization history:: Adult Immunizations up to date. - Infectious Disease History:: Denies. - Social history:: Smoking status: Patient denies any tobacco usage or history of. - Family history:: not pertinent. - Hospitalizations: : No recent hospitalization is reported. Screenin:54 [facility] ED Fall Risk Assessment (Adult) History of falling in the last 3 months, rs5 including since admission Yes- single mechanical fall (1 pt) Confusion or Disorientation Yes (5 pts) Intoxicated or Sedated No (0 pts) Impaired Gait Yes (1 pt) Mobility Assist Device Used No (0 pt) Altered Elimination No (0 pt) Score/Fall Risk Level 3 or more points = High Risk Maintained a safe environment, Apply high fall risk patient identification: yellow non skid footwear/ fall signage. Abuse screen: Denies threats or abuse. Nutritional screening: No deficits noted. Tuberculosis screening: No symptoms or risk factors identified. Assessment: 08:55 General: Appears in no apparent distress. comfortable, Behavior is calm, cooperative. rs5 Pain: Noted to be quiet/stoic, Unable to use pain scale. Does not appear to understand pain scale. Neuro: Level of Consciousness is awake, alert, Oriented to none. Cardiovascular: Patient's skin is warm and dry. Respiratory: Respiratory effort is even, unlabored, Respiratory pattern is regular, symmetrical. GI: Abdomen is round non-distended, Enteral feeding tube in place, clamped. Site clean. : Rubin in place to gravity drainage. EENT: No signs and/or symptoms were reported regarding the EENT system. Derm: Skin is intact, Skin is pink, warm \\T\\ dry. dressing noted to sacrum connected to Hemovac, son states "she has a wound on her sacrum, the dressing was changed yesterday, please don't mess with it". Musculoskeletal: Range of motion: intact in all extremities. 10:01 Reassessment: Patient and/or family updated on plan of care and expected duration. Pain rs5 level reassessed. 11:10 Reassessment: No changes from previously documented assessment. rs5 12:38 Reassessment: Patient and/or family updated on plan of care and expected duration. Pain rs5 level reassessed. pt up for discharge, [facility] contacted for transport. 13:26 Reassessment: awaiting transport. rs5 14:01 Reassessment: group home contacted for transport, ETA 30 min, charge nurse notified. rs5 14:30 Reassessment: report given to EMS at bedside for transport. rs5 Vital Signs: 08:57 BP 115 / 56; Pulse 93; Resp 17; Temp 97.8(O); Pulse Ox 97% on R/A; rs5 12:00 BP 117 / 62; Pulse 70; Resp 17; Pulse Ox 99% on R/A; rs5 14:01 BP 120 / 66; Pulse 72; Resp 17; Pulse Ox 99% on R/A; rs5 ED Course: 08:54 Patient arrived in ED. eb 08:54 Patient has correct armband on for positive identification. Placed in gown. Bed in low rs5 position. Call light in reach. Side rails up X2. 08:55 Issa Pickett, RN is Primary Nurse. rs5 08:58 Amari Benton MD is Attending Physician. rn 09:03 Triage completed. bp 09:03 Arm band placed on. bp 09:21 CT Head Brain wo Cont In Process Unspecified. EDMS 10:09 XRAY Chest (1 view) In Process Unspecified. EDMS 13:27 No provider procedures requiring assistance completed. rs5 14:37 IV discontinued, intact, bleeding controlled, No redness/swelling at site. ld1 Administered Medications: 09:30 Drug: NS 0.9% IV 500 ml IV at bolus once Route: IV; Rate: bolus; Site: right wrist; rs5 10:02 Follow up: IV Status: Completed infusion; IV Intake: 500ml rs5 11:30 Drug: Potassium Chloride IV 10 mEq IV at calculated rate once; administer over 1-2 rs5 hours Route: IV; Rate: calculated rate; Site: right wrist; 12:01 Follow up: Response: No adverse reaction rs5 12:07 Drug: NS 0.9% IV 500 ml IV at bolus once Route: IV; Rate: bolus; Site: right wrist; rs5 12:45 Follow up: IV Status: Completed infusion; IV Intake: 500ml rs5 Medication: 10:06 VIS not applicable for this client. rs5 Intake: 10:02 IV: 500ml; Total: 500ml. rs5 12:45 IV: 500ml; Total: 1000ml. rs5 Outcome: 12:31 Discharge ordered by . rn 14:37 Discharged to home ambulatory, ld1 14:37 Condition: stable 14:37 Discharge instructions given to patient, Instructed on discharge instructions, follow up and referral plans. Demonstrated understanding of instructions, follow-up care, 14:37 Patient left the ED. ld1 Signatures: Dispatcher [employer] EDMS Amari Benton MD MD rn Peltier, Brian, RN RN bp Botello, Elizabeth eb Sims, Lauren, RN RN ld1 Issa Pickett, RN RN rs5 Corrections: (The following items were deleted from the chart) 13:26 10:01 Reassessment: Patient and/or family updated on plan of care and expected rs5 duration. Pain level reassessed. Patient is alert, oriented x 3, equal unlabored respirations, skin warm/dry/pink. rs5 13:26 13:26 Reassessment: Patient and/or family updated on plan of care and expected rs5 duration. Pain level reassessed. pt up for discharge, [facility] contacted for transport. rs5
[2023-12-05 14:47] VITALS: TEMP 97.8
[2023-12-05 15:00] VITALS: BP 120/66; O2SAT 99
--- NOTE | 2023-12-06 11:13 | EKG ---
Test Date: 2023-12-05 Test Time: 09:52:17 National Sales Director: DEJAH MEASUREMENT RESULTS: Intervals: Rate: 85 RI: 152 QRSD: 74 QT: 370 QTc: 440 [place]: P: 90 RI: 152 QRS: 29 T: 71 INTERPRETIVE STATEMENTS: Normal sinus rhythm Normal ECG Compared to ECG 11/11/2023 09:49:09 No significant changes Electronically Signed On 12-06-23 11:12:00 CDT by Camacho Hidalgo
== END 2023-12-05 14:37 | disposition home or self-care (01) ==
LOC: ER 08:51
DX: E86.0 Dehydration (principal); E87.6 Hypokalemia; E11.9 Type 2 diabetes mellitus without complications; I10 Essential (primary) hypertension; Z91.040 Latex allergy status
CPT/HCPCS: 96361; 93005; 87088; 85025; 81001; 87086; 80048; 36415; 83735; 85610; 85730; 87077; 87186; 70450; 71045; 96374; 99284; J3480; J7040 ×2

== ENCOUNTER 2024-01-07 15:53 | Emergency (ER) | payer OTHER, BC ==
[2024-01-07 17:48] LABS: Absolute Basophils 0.1 K/uL (0-0.5); Absolute Eosinophils 0.1 K/uL (0-0.5); Absolute Lymphocytes (CBC) 1.6 K/uL (0.7-4.9); Absolute Monocytes 0.5 K/uL (0.1-1.3); Absolute Neutrophil 7.1 K/uL (1.8-8.0); Basophils % 0.7 % (0-1.3); Eosinophils % 0.6 % (0-4.4); Hematocrit 32.5 % (36.0-45.0); Hemoglobin 10.5 g/dL (12.0-15.0); Lymphocytes % 17.6 % (15.3-44.8); MCHC 32.3 g/dL (32.0-36.0); MCV 77.5 fL (80-100); MPV 7.7 fL (7.6-11.3); Monocytes % 5.6 % (3.3-12.3); Neutrophils % 75.5 % (41.7-73.7); Platelets 522 thou/uL (152-406); RBC Red Blood Cell Count 4.19 M/uL (3.86-4.86); Red Cell Distribution Width 16.9 % (12.1-15.2)
[2024-01-07 18:03] LABS: AST/SGOT 13 U/L (15-37); Albumin 2.7 g/dL (3.4-5.0); Albumin/Globulin Ratio 0.6 (1.1-1.8); Alkaline Phosphatase 92 U/L (45-117); Anion Gap 10.5 mEq/L (5.0-15.0); BUN Blood Urea Nitrogen 22 mg/dL (7-18); Bicarbonate 28 mEq/L (21-32); Bilirubin Total 0.3 mg/dL (0.2-1.0); Globulin 4.9 g/dL (2.3-3.5); Glomerular Filtration Rate 95 ml/min (=/>90); Glucose Level 147 mg/dL (74-106); Potassium 3.5 mEq/L (3.5-5.1); Protein, Total 7.6 g/dL (6.4-8.2); Sodium Level 134 mEq/L (136-145)
[2024-01-07 18:06] LABS: PT Prothrombin Time 14.2 SECONDS (9.4-12.5); Protime INR 1.28
[2024-01-07 18:07] LABS: ALT/SGPT < 14 U/L (13-56); PTT, Activated Partial Thromb 30.7 SECONDS (24.3-36.9)
[2024-01-07] MEDS ORDERED: NA CHLORIDE 0.9% 500 ML ONE (18:33)
--- NOTE | 2024-01-07 20:25 | RAD REPORT ---
EXAM DESCRIPTION: CTAbdomen Pelvis W Contrast - 01/07/2024 8:10 pm CLINICAL HISTORY: HEMATURIA COMPARISON: Abdomen Pelvis W Contrast dated 10/23/2023 TECHNIQUE: CT of the abdomen and pelvis was performed with IV contrast. All CT scans are performed using dose optimization technique as appropriate and may include automated exposure control or mA/KV adjustment according to patient size. FINDINGS: Lower chest: Coronary calcifications. Liver: No acute abnormality or suspicious lesions. Biliary: Gallbladder wall thickening and distention. Stomach: Gastrostomy tube. Duodenum: No significant focal abnormality. Pancreas: No significant abnormality. Spleen: No significant abnormality. Adrenal: Left adrenal nodularity is unchanged. Kidney/ureter: No hydronephrosis. No renal calculi. Too small to characterize and/or benign appearing renal lesions are noted. Retroperitoneum: No retroperitoneal adenopathy. Vascular: No aneurysm. Atherosclerosis. Bowel: Moderate rectal stool present. Moderate stool in the ascending colon. Peritoneum: Presacral edema. Bladder: Bladder wall thickening enhancement. Bladder gas present. Reproductive: Pessary noted which sits off center. The vaginal canal enhances and has fluid. This lik luis displaces the bladder anteriorly. Bones: No acute fracture. Sacral decubitus ulcer. Severe disc height loss L5-S1. Other: n/a IMPRESSION: Pessary present which may be malpositioned. The vagina is enhancing and contains fluid. The pessary has mass effect on the bladder which is displaced anteriorly and could be contributing to urinary retention. Large rectal stool burden.
[2024-01-07 21:20] LABS: Specific Gravity 1.024 (1.005-1.030); Sqamous Epithelial <5 /HPF (None Seen); Urine Bacteria <20 /HPF (<20); Urine Bilirubin NEGATIVE (Negative); Urine Blood 1+ (Negative); Urine Clarity Extremely Turbid (Clear); Urine Color Light-Yellow (Yellow); Urine Culture Reflex Order REFLEXED; Urine Glucose NEGATIVE (Negative); Urine Ketones TRACE (Negative); Urine Microscopic Reflex YN ORDER UMIC; Urine Mucus Slight /HPF (None Seen); Urine Nitrite NEGATIVE (Negative); Urine Protein TRACE (Negative); Urine Urobilinogen Normal (Normal); Urine WBC >50 /HPF (<5); Urine WBC Clump Rare /HPF (None Seen); Urine pH 6.5 (5.0-7.0)
--- NOTE | 2024-01-07 21:40 | EDPHYS ---
Physician Documentation [facility] Name: Betina Ward Age: 78 yrs Sex: Female : 1945 Arrival Date: 01/07/2024 Time: 15:53 Bed 14 Private MD: ED Physician Catracho Pena HPI: 01/06 22:33 This 78 yrs old Female presents to ER via EMS with complaints of Urinary Problem. kb 22:33 Pt is a 78 year old female who was sent in by family because rees has not been kb draining well today and they noticed blood in the rees bag. Denies fever, vomiting, diarrhea. . Historical: - Allergies: 18:09 Latex; ph - PMHx: 18:09 Diabetes - IDDM; Hyperlipidemia; Glaucoma; Hypertension; Hypothyroidism; ph - Immunization history:: Adult Immunizations unknown. - Infectious Disease History:: Denies. - Social history:: Smoking status: unknown. ROS: 21:56 Constitutional: As per HPI kb Exam: 21:19 ECG was reviewed by the Attending Physician. kb 22:31 Constitutional: This is a well developed, well nourished patient who is awake, alert, kb and in no acute distress. Head/Face: Normocephalic, atraumatic. ENT: Moist Mucous membranes Cardiovascular: Regular rate Respiratory: Respirations even and unlabored. No increased work of breathing. Talking in full sentences Abdomen/GI: Soft, non-tender. No distention. PEG tube in place Skin: Warm, dry with normal turgor. Normal color. MS/ Extremity: Pulses equal, no cyanosis. Neurovascular intact. Full, normal range of motion. 22:31 Neuro: Exam negative for acute changes, Vital Signs: 17:03 BP 140 / 67; Pulse 99; Resp 18; Temp 97.8; Pulse Ox 99% on R/A; ph 19:07 BP 154 / 58; Pulse 95; Resp 18; Pulse Ox 96% on R/A; ph 20:00 BP 142 / 75; Pulse 100; Resp 18 S; Pulse Ox 100% on R/A; jw7 21:00 BP 124 / 76; Pulse 97; Resp 16 S; Pulse Ox 99% on R/A; jw7 22:00 BP 135 / 74; Pulse 94; Resp 16 S; Temp 97.9(TE); Pulse Ox 98% on R/A; jw7 MDM: 16:53 Patient medically screened. kb 22:29 Differential diagnosis: UTI, malfunction of rees, cystitis. Data reviewed: vital kb signs, nurses notes. Consideration of Admission/Observation Escalation of care including admission/observation considered. admission considered but pt is afebrile, normal mentation per , labs reassuring.. Management of patient was discussed with the following: Dr Coreas, recommends outpatient treatment. Historians other than the Patient: EMS: [facility]. Counseling: I had a detailed discussion with the patient and/or guardian regarding the historical points, exam findings, and any diagnostic results supporting the discharge/admit diagnosis, lab results, radiology results, the need for outpatient follow up, a family practitioner, an OB/Gyne specialist, to return to the emergency department if symptoms worsen or persist or if there are any questions or concerns that arise at home. 22:32 ED course: Nurse reported pt had large amount of urine drained after rees removed, it kb was likely malpositioned. New rees in place and draining well. Urine is yellow and clear, no blood noted. 01/06 17:03 Order name: Blood Culture Adult (2) kb 01/06 17:03 Order name: CBC with Diff; Complete Time: 18:31 kb 01/06 17:03 Order name: CMP; Complete Time: 18:31 kb 01/06 17:03 Order name: Lactate w/ 2H reflex if indic.; Complete Time: 18:31 kb 01/06 17:03 Order name: Protime (+inr); Complete Time: 18:31 kb 01/06 17:03 Order name: Ptt, Activated; Complete Time: 18:31 kb 01/06 17:03 Order name: Urinalysis w/ reflexes; Complete Time: 21:30 kb 01/06 21:30 Order name: Urine Culture EDMS 01/06 18:32 Order name: CT Abd/Pelvis - IV Contrast Only; Complete Time: 20:27 kb 01/06 17:03 Order name: Accucheck; Complete Time: 17:15 kb 01/06 17:03 Order name: Cardiac monitoring; Complete Time: 18:09 kb 01/06 17:03 Order name: EKG - Nurse/Tech; Complete Time: 18:09 kb 01/06 17:03 Order name: IV Saline Lock - Large Bore; Complete Time: 18:09 kb 08 17:03 Order name: Labs collected and sent; Complete Time: 18:09 kb 08 17:03 Order name: O2 Per Protocol; Complete Time: 17:15 kb 01/06 17:03 Order name: O2 Sat Monitoring; Complete Time: 17:15 kb 01/06 17:03 Order name: Vital Signs; Complete Time: 17:15 kb 08 17:03 Order name: Rees: replace rese; Complete Time: 18:38 kb 01/06 20:48 Order name: Misc. Order: obtain urine specimen; Complete Time: 21:08 kb EC:19 Rate is 101 beats/min. Rhythm is regular. QRS [place] is Normal. MD interval is normal at kb 78 msec. QRS interval is normal at 443 msec. Administered Medications: 18:37 Drug: NS 0.9% IV 500 ml IV at bolus once Route: IV; Rate: bolus; Site: right forearm; ph 22:37 Follow up: Response: No adverse reaction; IV Status: Completed infusion; IV Intake: jw7 500ml 21:59 Drug: Rocephin IV 1 grams IV at calculated rate once; Given slow IV push per pharmacy jw7 instructions Route: IV; Rate: calculated rate; Site: right forearm; 22:38 Follow up: Response: No adverse reaction; IV Status: Completed infusion; IV Intake: [id number] Disposition Summary: 01/07/24 21:38 Discharge Ordered Notes: Location: Home kb Condition: Stable kb Diagnosis - UTI/ Urinary tract infection, site not specified kb Followup: kb - With: Emergency Department - When: As needed - Reason: Worsening of condition Followup: kb - With: Private Physician - When: 2 - 3 days - Reason: Recheck today's complaints, Continuance of care, Re-evaluation by your physician Discharge Instructions: - Discharge Summary Sheet kb - Urinary Tract Infection, Adult, [id number] kb Forms: - Medication Reconciliation Form kb - Antibiotic Education kb - Prescription Opioid Use kb - Patient Portal Instructions kb - Leadership Thank You Letter kb Prescriptions: - cefpodoxime 100 mg Oral Tablet - take 1 tablet ORAL route every 12 hours for 10 days take with food; 20 tablet; kb Refills: 0, Product Selection Permitted Signatures: Dispatcher [employer] Corina Abernathy FNP-C ORDER DESK CALLER-Ckb Valerie Byrd, RN RN ph Luzma Rai, RN RN jw7 Corrections: (The following items were deleted from the chart) 17:08 17:08 BLOOD CULTURE*+BA.LAB.BRZ ordered. EDMS EDMS 17:08 17:08 CBC+H.LAB.BRZ ordered. EDMS EDMS 17: 17:08 COMPREHENSIVE METABOLIC PANEL+C.LAB.BRZ ordered. EDMS EDMS 17: 17:08 LACTATE+C.LAB.BRZ ordered. EDMS EDMS 17:08 17:08 PROTIME (+INR)+COAG.LAB.BRZ ordered. EDMS EDMS 17:08 17:08 PTT, ACTIVATED+COAG.LAB.BRZ ordered. EDMS EDMS 17:08 17:08 Urinalysis+U.LAB.BRZ ordered. EDMS EDMS 19:30 17:16 COMPREHENSIVE METABOLIC PANEL+C.LAB.BRZ ordered. EDMS EDMS 19:31 17:16 LACTATE+C.LAB.BRZ ordered. EDMS EDMS 22:33 22:32 ED course: Nurse reported pt had large amount of urine drained after rees kb removed, it was likely malpositioned. . kb
--- NOTE | 2024-01-07 21:40 | ER ---
Nurse's Notes [facility] Name: Betina Ward Age: 78 yrs Sex: Female : 1945 Arrival Date: 01/07/2024 Time: 15:53 Bed 14 Private MD: Diagnosis: UTI/ Urinary tract infection, site not specified Presentation: 01/06 17:03 Chief complaint: EMS states: EMS called for urinary retention, pt recently d/c home [facility] w/ Rubin catheter in place, family reported that the urine output has decreased today and there is blood present in the urine. Coronavirus screen: Vaccine status: unknown. Ebola Screen: No symptoms or risks identified at this time. Initial Sepsis Screen: Does the patient meet any 2 criteria? No. Patient's initial sepsis screen is negative. Does the patient have a suspected source of infection? No. Patient's initial sepsis screen is negative. Risk Assessment: Do you want to hurt yourself or someone else? Patient reports no desire to harm self or others. Onset of symptoms was January 07, 2024. 17:03 Method Of Arrival: EMS: [facility] 17:03 Acuity: RIANA 3 ph Historical: - Allergies: 18:09 Latex; ph - PMHx: 18:09 Diabetes - IDDM; Hyperlipidemia; Glaucoma; Hypertension; Hypothyroidism; ph - Immunization history:: Adult Immunizations unknown. - Infectious Disease History:: Denies. - Social history:: Smoking status: unknown. Screenin:39 [facility] ED Fall Risk Assessment (Adult) History of falling in the last 3 months, ph including since admission No falls in past 3 months (0 pts) Confusion or Disorientation Yes (5 pts) Intoxicated or Sedated No (0 pts) Impaired Gait Yes (1 pt) Mobility Assist Device Used Yes (1 pt) Altered Elimination Yes (1 pt) Score/Fall Risk Level 3 or more points = High Risk Oriented to surroundings, Maintained a safe environment, Used ambulatory aids as needed (educated on \T\ assisted with). Abuse screen: Denies threats or abuse. Denies injuries from another. Nutritional screening: No deficits noted. Tuberculosis screening: No symptoms or risk factors identified. Assessment: 18:00 General: Appears in no apparent distress. uncomfortable, Behavior is calm, cooperative. ph Pain: Unable to use pain scale. Patient is disoriented. Does not appear to understand pain scale. Neuro: Level of Consciousness is awake, alert, Oriented to person. Cardiovascular: Capillary refill < 3 seconds in bilateral fingers Patient's skin is warm and dry. Respiratory: Airway is patent Respiratory effort is even, unlabored, Respiratory pattern is regular, symmetrical. GI: PEG tube in place, Site clean. : Rubin in place to gravity drainage Urine is blood tinged. Derm: Decubitus located on sacrum approximately 2.6 cm to 7.5 cm is stage III. 19:00 General: Appears in no apparent distress. uncomfortable, Behavior is calm, cooperative. jw7 Pain: Unable to use pain scale. Patient is disoriented. Does not appear to understand pain scale. Neuro: Level of Consciousness is awake, alert, Oriented to person. Cardiovascular: Capillary refill < 3 seconds in bilateral fingers Patient's skin is warm and dry. Respiratory: Airway is patent Respiratory effort is even, unlabored, Respiratory pattern is regular, symmetrical. GI: PEG tube in place, Site clean. : Rubin in place to gravity drainage Urine is cloudy. EENT: No deficits noted. No signs and/or symptoms were reported regarding the EENT system. Derm: Decubitus located on sacrum approximately 2.6 cm to 7.5 cm is stage III. Musculoskeletal: Circulation, motion, and sensation intact. Range of motion: limited in all extremities. 20:00 Reassessment: Patient appears in no apparent distress at this time. No changes from 7 previously documented assessment. Patient and/or family updated on plan of care and expected duration. Pain level reassessed. 21:00 Reassessment: Patient appears in no apparent distress at this time. No changes from jw7 previously documented assessment. Patient and/or family updated on plan of care and expected duration. Pain level reassessed. 22:00 Reassessment: Patient appears in no apparent distress at this time. No changes from jw7 previously documented assessment. Patient and/or family updated on plan of care and expected duration. Pain level reassessed. 22:20 Reassessment: Patient appears in no apparent distress at this time. No changes from 7 previously documented assessment. Patient and/or family updated on plan of care and expected duration. Pain level reassessed. Vital Signs: 17:03 BP 140 / 67; Pulse 99; Resp 18; Temp 97.8; Pulse Ox 99% on R/A; ph 19:07 BP 154 / 58; Pulse 95; Resp 18; Pulse Ox 96% on R/A; ph 20:00 BP 142 / 75; Pulse 100; Resp 18 S; Pulse Ox 100% on R/A; jw7 21:00 BP 124 / 76; Pulse 97; Resp 16 S; Pulse Ox 99% on R/A; jw7 22:00 BP 135 / 74; Pulse 94; Resp 16 S; Temp 97.9(TE); Pulse Ox 98% on R/A; jw7 ED Course: 16:52 Patient arrived in ED. eb 16:53 Corina Padilla, JANET is [facility]. kb 16:53 Catracho Pena MD is Attending Physician. kb 16:59 Valerie Byrd, TONE is Primary Nurse. ph 17:07 Triage completed. ph 17:30 Initial lab(s) drawn, by me, sent to lab. Inserted saline lock: 22 gauge in right ph forearm, using aseptic technique. Blood collected. Flushed with 10 mL NS. 18:08 Blood Culture Adult (2) Sent. ph 18:08 CBC with Diff Sent. ph 18:10 EKG done, by ED staff, reviewed by Corina GONZALES. ph 18:25 Rubin cath removed intact, balloon deflated. ph 18:30 Rubin cath inserted, using sterile technique, 16 Fr., by me, balloon inflated, to ph gravity drainage, returned when 1st catheter d/c a large amount of purulent urine drained from bladder prior to placing snd catheter. 19:08 Patient has correct armband on for positive identification. Placed in gown. Bed in low ph position. Call light in reach. Side rails up X2. Pulse ox on. NIBP on. Door closed. Noise minimized. Warm blanket given. Pillow given. 19:08 Arm band placed on Patient placed in an exam room. ph 19:10 Provided Education on: use of call light. jw7 19:11 No provider procedures requiring assistance completed. ph 19:11 Maintain EMS IV. Dressing intact. Good blood return noted. Site clean \T\ dry. Gauge \T\ ph site: 20 LAC. IV with fluids infusing freely, Flushed left antecubital with 5 ml normal saline. 20:12 CT Abd/Pelvis - IV Contrast Only In Process Unspecified. EDMS 22:25 IV discontinued, intact, bleeding controlled, No redness/swelling at site. Pressure jw7 dressing applied, X2. Administered Medications: 18:37 Drug: NS 0.9% IV 500 ml IV at bolus once Route: IV; Rate: bolus; Site: right forearm; ph 22:37 Follow up: Response: No adverse reaction; IV Status: Completed infusion; IV Intake: jw7 500ml 21:59 Drug: Rocephin IV 1 grams IV at calculated rate once; Given slow IV push per pharmacy jw7 instructions Route: IV; Rate: calculated rate; Site: right forearm; 22:38 Follow up: Response: No adverse reaction; IV Status: Completed infusion; IV Intake: [id number] Medication: 19:08 VIS not applicable for this client. ph Intake: 22:37 IV: 500ml; Total: 500ml. jw7 22:38 IV: 50ml; Total: 550ml. jw7 Outcome: 21:38 Discharge ordered by . blayne 22:25 Discharged to home via ambulance, jw7 22:25 Condition: stable 22:25 Discharge instructions given to family, Instructed on discharge instructions, follow up and referral plans. medication usage, Demonstrated understanding of instructions, follow-up care, medications, Prescriptions given X 1, 22:38 Patient left the ED. jw7 Signatures: Dispatcher [employer] EDMS Corina Padilla, RADIO STATION MANAGER-Hanna WELLERP-Valerie Zavala, RN RN Lashon Sue Jodi, RN RN jw7
[2024-01-07] MEDS ORDERED: CEFTRIAXONE 1000 MG/VIAL ONE (21:54)
[2024-01-07] MEDS ORDERED: NA CHLORIDE 0.9% 50 ML ONE (21:54)
[2024-01-08 09:04] VITALS: BP 135/74; TEMP 97.9; O2SAT 98
--- NOTE | 2024-01-09 13:11 | EKG ---
Test Date: 2024-01-07 Test Time: 18:04:34 Change Management Coordinator: PH MEASUREMENT RESULTS: Intervals: Rate: 101 [place]: 164 QRSD: 78 QT: 342 QTc: 443 [place]: P: 76 [place]: 164 QRS: 16 T: 74 INTERPRETIVE STATEMENTS: Sinus tachycardia Otherwise normal ECG Compared to ECG 12/05/2023 09:52:17 Sinus rhythm no longer present Electronically Signed On 01-09-24 13:06:10 CDT by Raimundo Horn
== END 2024-01-07 22:38 | disposition home or self-care (01) ==
LOC: ER 15:53
PROC: 0T2BX0Z Change Drainage Device in Bladder, External Approach (ICD-10-PCS; principal; 2024-01-07)
DX: N39.0 Urinary tract infection, site not specified (principal)
CPT/HCPCS: 93005; 87040 ×2; 87088; 85025; 81001; 87086; 36415; 85610; 83605; 85730; 80053; 74177; 51702; Q9967; J7040; J0696; 96361; 96365; 99285

== ENCOUNTER 2024-08-10 16:00 | Inpatient (IN) | payer OTHER, BC ==
[2024-08-10] MEDS ORDERED: NA CHLORIDE 0.9% 500 ML ONE (16:49)
[2024-08-10 16:53] LABS: Absolute Eosinophils 0.1 K/uL (0-0.5); Absolute Lymphocytes (CBC) 2.1 K/uL (0.7-4.9); Absolute Monocytes 0.6 K/uL (0.1-1.3); Absolute Neutrophil 4.4 K/uL (1.8-8.0); Basophils % 0.4 % (0-1.3); Eosinophils % 0.8 % (0-4.4); Hematocrit 41.6 % (36.0-45.0); Hemoglobin 14.8 g/dL (12.0-15.0); Lymphocytes % 29.1 % (15.3-44.8); MCH 31.2 pg (27.0-35.0); MCHC 35.6 g/dL (32.0-36.0); MCV 87.5 fL (80-100); MPV 7.8 fL (7.6-11.3); Monocytes % 8.2 % (3.3-12.3); Neutrophils % 61.5 % (41.7-73.7); Nucleated Red Blood Cells % 0.1 % (0-0); Platelets 322 thou/uL (152-406); RBC Red Blood Cell Count 4.75 M/uL (3.86-4.86); Red Cell Distribution Width 15.3 % (12.1-15.2)
[2024-08-10 16:56] LABS: Specific Gravity 1.013 (1.005-1.030); Sqamous Epithelial None Seen /HPF (None Seen); Urine Bacteria <20 /HPF (<20); Urine Bilirubin NEGATIVE (Negative); Urine Blood 1+ (Negative); Urine Clarity Extremely Turbid (Clear); Urine Color Light-Yellow (Yellow); Urine Crystals Unidentified Few /HPF (None Seen); Urine Culture Reflex Order REFLEXED; Urine Glucose NEGATIVE (Negative); Urine Ketones TRACE (Negative); Urine Microscopic Reflex YN ORDER UMIC; Urine Mucus Slight /HPF (None Seen); Urine Nitrite 1+ (Negative); Urine Protein 1+ (Negative); Urine Urobilinogen Normal (Normal); Urine WBC >50 /HPF (<5); Urine WBC Clump Rare /HPF (None Seen); Urine Yeast (Budding) Few /HPF (None Seen); Urine pH 7.5 (5.0-7.0)
[2024-08-10 17:09] LABS: ALT/SGPT 20 U/L (13-56); AST/SGOT 23 U/L (15-37); Albumin 3.7 g/dL (3.4-5.0); Albumin/Globulin Ratio 0.9 (1.1-1.8); Alkaline Phosphatase 66 U/L (45-117); Anion Gap 6.4 mEq/L (5.0-15.0); BUN Blood Urea Nitrogen 22 mg/dL (7-18); Bicarbonate 32 mEq/L (21-32); Bilirubin Total 0.5 mg/dL (0.2-1.0); Globulin 4.1 g/dL (2.3-3.5); Glomerular Filtration Rate 93 ml/min (=/>90); Glucose Level 137 mg/dL (74-106); Potassium 3.4 mEq/L (3.5-5.1); Protein, Total 7.8 g/dL (6.4-8.2); Sodium Level 137 mEq/L (136-145)
[2024-08-10 17:10] LABS: Bilirubin Direct < 0.2 mg/dL (0-0.2); Bilirubin Indirect, Calculated 0.3 mg/dL (0.2-0.8)
--- NOTE | 2024-08-10 17:35 | RAD REPORT ---
Exam:Pelvis CLINICAL HISTORY: Pelvic pain FINDINGS: No fracture or dislocation seen Bones are osteoporotic. Large amount of stools present throughout
[2024-08-10] MEDS ORDERED: CEFTRIAXONE 1000 MG/VIAL ONE (17:59)
[2024-08-10] MEDS ORDERED: DIPHENHYDRAMINE 50 MG/ML VIAL ONE (18:00)
[2024-08-10] MEDS ORDERED: NA CHLORIDE 0.9% 100 ML ONE (18:00)
--- NOTE | 2024-08-10 18:03 | EDPHYS ---
Physician Documentation [facility] Name: Betina Ward Age: 78 yrs Sex: Female : 1945 Arrival Date: 08/10/2024 Time: 16:00 Bed 6 Private MD: ED Physician Amari Benton HPI: 08/10 16:37 This 78 yrs old Female presents to ER via EMS with complaints of Altered Mental Status. rn 16:37 The patient presents with agitation, confusion. Onset: The symptoms/episode rn began/occurred at an unknown time. Possible causes: unknown. Current symptoms: In the emergency department the patient's symptoms are unchanged from the initial presentation. The patient has experienced similar episodes in the past. EMS reports family called out for altered mental status, more agitated than normal, has baseline dementia, no fever or chills. No vomiting or diarrhea. Patient denies focal pain. Family member also told EMS that right leg is constantly bent and has been unable to straighten leg for a year or more. Family member would like for us to evaluate the leg.. Historical: - Allergies: 16:19 Latex; me1 - PMHx: 16:19 Diabetes - IDDM; Hyperlipidemia; Glaucoma; Hypothyroidism; Hypertension; me1 - Immunization history:: Adult Immunizations unknown. - Infectious Disease History:: Denies. - Social history:: Smoking status: unknown. - Family history:: not pertinent. - Hospitalizations: : No recent hospitalization is reported. ROS: 16:37 Unable to obtain ROS due to altered mental status, baseline dementia, rn Exam: 16:37 Constitutional: Thin cachectic female, no acute distress Head/Face: Normocephalic, rn atraumatic. ENT: Dry mucous membranes Cardiovascular: Tachycardic, regular. No pulse deficits. Respiratory: No increased work of breathing, no retractions or nasal flaring. Abdomen/GI: Soft, non-tender MS/ Extremity: Pulses equal, no cyanosis. Neurovascular intact. Able to straighten right hip approximately 80% of the way, no apparent pain. No deformity. No focal bony tenderness Neuro: Awake and alert, GCS 15 18:08 ECG was reviewed by the Attending Physician. rn Vital Signs: 16:16 BP 172 / 109; Pulse 103; Resp 20; Temp 97.8; Pulse Ox 100% ; Weight 36.74 kg; me1 16:45 BP 180 / 101; Pulse 99; Resp 17; Pulse Ox 99% ; me1 19:35 BP 190 / 104; Pulse 108; Resp 17; Pulse Ox 100% ; vc1 19:35 pt fidgeting during blood pressure vc1 MDM: 16:05 Medical Screening Exam initiated rn 18:00 Differential Diagnosis: electrolyte abnormality, pneumonia, UTI, volume depletion. Data rn reviewed: vital signs, nurses notes, lab test result(s), and as a result, I will admit patient. Consideration of Admission/Observation Patient was admitted/placed on observation. Escalation of care including admission/observation considered. Counseling: I had a detailed discussion with the patient and/or guardian regarding the historical points, exam findings, and any diagnostic results supporting the discharge/admit diagnosis, lab results, the need for further work-up and treatment in the hospital. Response to treatment: the patient's symptoms have mildly improved after treatment, and as a result, I will admit patient. ED course: Patient with urinary tract infection and altered mental status, sepsis order set utilized, antibiotics to be given after blood cultures. Will admit to hospitalist service for further care.. 08/10 16:11 Order name: Urinalysis w/ reflexes; Complete Time: 17:52 08/10 16:11 Order name: CBC with Diff; Complete Time: 17:52 08/10 16:11 Order name: Basic Metabolic Panel; Complete Time: 17:52 08/10 16:11 Order name: LFT's; Complete Time: 17:52 08/10 16:59 Order name: Urine Culture [facility] 08/10 17:52 Order name: Blood Culture Adult (2) 08/10 17:52 Order name: Lactate w/ 2H reflex if indic. rn 08/10 17:52 Order name: Protime (+inr) 08/10 17:52 Order name: Ptt, Activated rn 08/10 19:13 Order name: Urinalysis w/ reflexes [facility] 08/10 19:13 Order name: Basic Metabolic Panel [facility] 08/10 19:13 Order name: Basic Metabolic Panel [facility] 08/10 19:13 Order name: Basic Metabolic Panel [facility] 08/10 19:13 Order name: Basic Metabolic Panel [facility] 08/10 19:13 Order name: CBC with Automated Diff [facility] 08/10 19:13 Order name: CBC with Automated Diff EDMS 08/10 19:13 Order name: CBC with Automated Diff EDMS 08/10 19:13 Order name: CBC with Automated Diff EDMS 08/10 19:13 Order name: Magnesium EDMS 08/10 19:13 Order name: Magnesium EDMS 08/10 19:14 Order name: Magnesium EDMS 08/10 19:14 Order name: Magnesium EDMS 08/10 16:11 Order name: XRAY Pelvis; Complete Time: 17:52 rn 08/10 16:11 Order name: EKG; Complete Time: 16:11 rn 08/10 19:18 Order name: [facility] Cons EDMS 08/10 16:11 Order name: IV Start; Complete Time: 16:46 rn 08/10 16:11 Order name: Cardiac monitoring; Complete Time: 16:51 rn 08/10 16:11 Order name: O2 Sat Monitoring; Complete Time: 16:38 rn 08/10 16:11 Order name: EKG - Nurse/Tech; Complete Time: 16:51 rn 08/10 17:52 Order name: IV Saline Lock - Large Bore; Complete Time: 18:31 rn 08/10 17:52 Order name: Labs collected and sent; Complete Time: 18:31 rn 08/10 17:52 Order name: O2 Per Protocol; Complete Time: 18:31 rn 08/10 17:52 Order name: Vital Signs; Complete Time: 18:31 rn EC:08 Rate is 95 beats/min. Rhythm is regular. QRS [place] is Normal. ID interval is normal. QRS rn interval is normal. QT interval is normal. No Q waves. No ST changes noted. Clinical impression: NSR w/ Non-specific ST/T Changes. Interpreted by me. Reviewed by me. Administered Medications: 16:51 Drug: NS 0.9% IV 500 ml 500 ml IV at 1 bolus once; to be given as a bolus over 30 me1 minutes Volume: 500 ml; Route: IV; Rate: 1 bolus; Site: left antecubital; 18:31 Follow up: Response: No adverse reaction; IV Status: Completed infusion me1 18:30 Drug: Rocephin IV 1 grams IV at calculated rate once; Given slow IV push per pharmacy me1 instructions Route: IV; Rate: calculated rate; Site: left antecubital; 19:00 Follow up: IV Status: Completed infusion vc1 18:30 Drug: diphenhydrAMINE IVP 12.5 mg IVP once Route: IVP; Site: left antecubital; va1 20:19 Follow up: Response: No adverse reaction; No change in condition vc1 Disposition Summary: 08/10/24 18:02 Hospitalization Ordered Notes: Hospitalization Status: Inpatient Admission rn Provider: Makeda Hurley rn Location: Telemetry/MedSurg (Inpatient) rn Condition: Stable rn Problem: new rn Symptoms: are unchanged rn Bed/Room Type: Standard rn Room Assignment: 211(08/10/24 19:54) rv1 Diagnosis - Altered mental status, unspecified rn - UTI/ Urinary tract infection, site not specified rn Forms: - Medication Reconciliation Form rn - SBAR form rn - Leadership Thank You Letter rn Signatures: Dispatcher [employer] EDAmari Presley MD MD rn Villegas, Rebecca rv1 Mayela Jain RN RN va1 Tasneem Jose RN vc1 Corrections: (The following items were deleted from the chart) 19:54 18:02 rn rv1 20:21 17:52 Accucheck ordered. rn vc1
--- NOTE | 2024-08-10 18:03 | ER ---
Nurse's Notes [facility] Name: Betina Ward Age: 78 yrs Sex: Female : 1945 Arrival Date: 08/10/2024 Time: 16:00 Bed 6 Private MD: Diagnosis: Altered mental status, unspecified;UTI/ Urinary tract infection, site not specified Presentation: 08/10 16:16 Chief complaint: EMS states: toned out for increased agitation. Hx dementia, bedbound me1 patient with a UTI and reports a bedsore. Rubin catheter in place on arrival. Right knee stays bent all the time per and he is concerned about that as well. Coronavirus screen: At this time, the client does not indicate any symptoms associated with coronavirus-19. Ebola Screen: No symptoms or risks identified at this time. Initial Sepsis Screen: Does the patient meet any 2 criteria? No. Patient's initial sepsis screen is negative. Does the patient have a suspected source of infection? No. Patient's initial sepsis screen is negative. Risk Assessment: Do you want to hurt yourself or someone else? Patient reports no desire to harm self or others. Onset of symptoms is unknown. 16:16 Method Of Arrival: EMS ne1 16:16 Acuity: RIANA 3 me1 Triage Assessment: 16:19 General: Appears in no apparent distress. slender, Behavior is calm, cooperative, me1 appropriate for age. Pain: Unable to use pain scale. Patient is disoriented. Does not appear to understand pain scale. EENT: No signs and/or symptoms were reported regarding the EENT system. Neuro: Level of Consciousness is awake, alert, obeys commands, Oriented to person. Cardiovascular: Patient's skin is warm and dry. Respiratory: Airway is patent Respiratory effort is even, unlabored, Respiratory pattern is regular, symmetrical. GI: No signs and/or symptoms were reported involving the gastrointestinal system. : Rubin in place to gravity drainage. Derm: Skin is healthy with good turgor, Skin is pink, warm \T\ dry. Wound noted gluteal cleft Wound is decubitus. Musculoskeletal: Range of motion: limited in right hip and right knee. Historical: - Allergies: 16:19 Latex; me1 - PMHx: 16:19 Diabetes - IDDM; Hyperlipidemia; Glaucoma; Hypothyroidism; Hypertension; me1 - Immunization history:: Adult Immunizations unknown. - Infectious Disease History:: Denies. - Social history:: Smoking status: unknown. - Family history:: not pertinent. - Hospitalizations: : No recent hospitalization is reported. Screenin:22 [facility] ED Fall Risk Assessment (Adult) History of falling in the last 3 months, me1 including since admission No falls in past 3 months (0 pts) Confusion or Disorientation Yes (5 pts) Intoxicated or Sedated No (0 pts) Impaired Gait Yes (1 pt) Mobility Assist Device Used Yes (1 pt) Altered Elimination Yes (1 pt) Score/Fall Risk Level 3 or more points = High Risk Maintained a safe environment, Provided non-skid footwear, Hourly rounding (assess needs \T\ fall precautionary measures) done. Abuse screen: Denies threats or abuse. Nutritional screening: No deficits noted. Tuberculosis screening: No symptoms or risk factors identified. Assessment: 16:22 General: See triage assessment. me1 17:00 General: Spoke with Dr Benton regarding difficulty getting an accurate bp due to patient me1 being agitated and restless. Ok to put monitor on standby and rec'd order for benadryl to help with restlessness.. 19:34 General: Appears in no apparent distress. slender, Behavior is restless. Pain: Denies vc1 pain. Neuro: Level of Consciousness is awake, confused, lethargic, Oriented to person. Cardiovascular: Heart tones S1 S2 present Capillary refill < 3 seconds Patient's skin is warm and dry. Respiratory: Airway is patent Respiratory effort is even, unlabored, Respiratory pattern is regular, symmetrical, Breath sounds are clear bilaterally. GI: No deficits noted. No signs and/or symptoms were reported involving the gastrointestinal system. : Rubin in place. EENT: No deficits noted. No signs and/or symptoms were reported regarding the EENT system. Derm: Skin is intact, is healthy with good turgor, Skin is dry, Skin is normal, Skin temperature is warm. Musculoskeletal: patient is bed bound for the last year. Vital Signs: 16:16 BP 172 / 109; Pulse 103; Resp 20; Temp 97.8; Pulse Ox 100% ; Weight 36.74 kg; me1 16:45 BP 180 / 101; Pulse 99; Resp 17; Pulse Ox 99% ; me1 19:35 BP 190 / 104; Pulse 108; Resp 17; Pulse Ox 100% ; vc1 19:35 pt fidgeting during blood pressure vc1 ED Course: 16:03 Patient arrived in ED. ss 16:05 Amari Benton MD is Attending Physician. rn 16:06 Mayela Jain, TONE is Primary Nurse. me1 16:19 Triage completed. me1 16:19 Arm band placed on Patient placed in an exam room. me1 16:22 Patient has correct armband on for positive identification. Bed in low position. Call me1 light in reach. Side rails up X2. Provided Education on: POC. Verbalized understanding.. Client placed on continuous cardiac and pulse oximetry monitoring. NIBP monitoring applied. Pulse ox on. NIBP on. 16:22 No provider procedures requiring assistance completed. Maintain EMS IV. Dressing me1 intact. Good blood return noted. Site clean \T\ dry. Gauge \T\ site: 20g LAC. Flushed with 10 mL NS. 16:46 Urinalysis w/ reflexes Sent. me1 16:46 CBC with Diff Sent. me1 16:47 Basic Metabolic Panel Sent. me1 16:47 LFT's Sent. me1 16:51 EKG done, by ED staff, reviewed by Amari Benton MD. me1 17:07 XRAY Pelvis In Process Unspecified. EDMS 18:01 Makeda Hurley MD is Hospitalizing Provider. rn 18:28 First set of blood cultures drawn by ne, Urine collected: Rubin catheter specimen, ne1 cloudy. 18:31 Blood Culture Adult (2) Sent. me1 18:31 Lactate w/ 2H reflex if indic. Sent. me1 18:31 Protime (+inr) Sent. me1 18:31 Ptt, Activated Sent. me1 18:36 Second set of blood cultures drawn by ne. me1 21:30 Patient admitted, IV remains in place. vc1 Administered Medications: 16:51 Drug: NS 0.9% IV 500 ml 500 ml IV at 1 bolus once; to be given as a bolus over 30 me1 minutes Volume: 500 ml; Route: IV; Rate: 1 bolus; Site: left antecubital; 18:31 Follow up: Response: No adverse reaction; IV Status: Completed infusion me1 18:30 Drug: Rocephin IV 1 grams IV at calculated rate once; Given slow IV push per pharmacy me1 instructions Route: IV; Rate: calculated rate; Site: left antecubital; 19:00 Follow up: IV Status: Completed infusion vc1 18:30 Drug: diphenhydrAMINE IVP 12.5 mg IVP once Route: IVP; Site: left antecubital; me1 20:19 Follow up: Response: No adverse reaction; No change in condition vc1 Medication: 16:22 VIS not applicable for this client. me1 Outcome: 18:02 Decision to Hospitalize by Provider. rn 21:30 Admitted to Med/surg accompanied by tech, via stretcher, room 211., on monitor, vc1 21:30 Condition: stable 21:30 Instructed on the need for admit, 21:30 Patient left the ED. vc1 Signatures: Dispatcher [employer] EDAmari Presley MD MD rn Blanchard, Shelby, RN RN Tasneem Jose RN RN [facility] Mayela Jain RN RN ne1 Corrections: (The following items were deleted from the chart) 16:22 16:16 Chief complaint: EMS states: toned out for increased agitation. Hx dementia, me1 bedbound patient with a UTI and reports a bedsore. Rubin catheter in place on arrival. Right knee stays bent all the time per and he is concerned about that as well. me1
--- NOTE | 2024-08-10 18:15 | P.HP ---
Certification for Inpatient Patient admitted to: Inpatient <Janey Martin - Last Filed: 08/10/24 20:07> Patient History Date of Service: 08/10/24 Reason for admission: UTI, confusion History of Present Illness: 78-year-old female with a past medical history 9 Diabetes - IDDM; Hyperlipidemia; Glaucoma; Hypothyroidism; Hypertension; presents to the emergency room via EMS with confusion. Reported similar symptoms in the past with urinary tract infections. Medical record patient has a baseline of dementia, no reported fever, nausea vomiting diarrhea. Unable to straighten leg for more than 1 year. ER evaluation hypertensive 6 BP 172 / 109; Pulse 103; Resp 20; Temp 97.8; Pulse Ox 100% ; ED evaluation no leukocytosis, mild hypokalemia potassium 3.4, pelvic x-ray No fracture or dislocation seen, Bones are osteoporotic. Large amount of stools present throughout. Plan to admit for metabolic encephalopathy, acute cystitis, - Past Medical/Surgical History Diabetic: Yes -: Hypertension -: Diabetes mellitus type 2 -: Hyperlipidemia -: Hypothyroidism Psychosocial/ Personal History: Pt lives at home with her , they have a developmentally delayed Son. Pt has refused to eat and has been unable to get out of bed. Needs SNF placement - Family History Father -: Heart disease - Social History Alcohol use: No CD- Drugs: No Caffeine use: No <Janey Martin - Last Filed: 08/10/24 20:07> Date of Service: 08/11/24 <Oxana Minaya - Last Filed: 08/11/24 15:09> Date of Service: 08/10/24 <Daniel Darden - Last Filed: 08/15/24 02:47> Allergies latex Allergy (Verified 02/14/20 15:44) Itching/Hives/Rash Home Medications: Collagenase [Santyl Ointment*] 1 appl TOP DAILY tube 10/29/23 Acetaminophen [M-Pap] 15 ml PO Q4H PRN 08/12/24 Cholecalciferol (Vitamin D3) [Vitamin D3] 1 unit PO DAILY 08/12/24 Melatonin/Lemon [place] Extr [Melatonin-Lemon [place] Tablet] 1 each PO BEDTIME PRN 08/12/24 Multivitamin with Minerals [Multivitamins with Minerals] 1 each PO DAILY 08/12/24 Review of Systems 10-point ROS is otherwise unremarkable <ParagcarylJaney - Last Filed: 08/10/24 20:07> Physical Examination - Physical Exam General: Alert, In no apparent distress, Oriented x1 HEENT: Atraumatic, Normocephalic Neck: Supple, 2+ carotid pulse no bruit Respiratory: Clear to auscultation bilaterally, Normal air movement Cardiovascular: Normal pulses, Regular rate/rhythm, Normal S1 S2 Capillary refill: <2 Seconds Gastrointestinal: Normal bowel sounds, Soft and benign Musculoskeletal: Other (leg pain, ) Integumentary: Other (stage 2 pressure ulcer) Neurological: Abnormal gait, Abnormal speech, Abnormal strength Urinary: Rees catheter - Studies Laboratory Data (last 24 hrs) 08/10/24 08/10/24 16:45 16:45 WBC 7.20 Hgb 14.8 Hct 41.6 Plt Count 322 Sodium 137 Potassium 3.4 L BUN 22 H Creatinine 0.59 Glucose 137 H Total Bilirubin 0.5 AST 23 ALT 20 Alkaline Phosphatase 66 <MarioJaney - Last Filed: 08/10/24 20:07> - Studies Laboratory Data (last 24 hrs) 08/10/24 08/10/24 08/10/24 18:28 16:45 16:45 WBC 7.20 Hgb 14.8 Hct 41.6 Plt Count 322 PT 11.8 INR 1.04 APTT 32.3 Sodium 137 Potassium 3.4 L BUN 22 H Creatinine 0.59 Glucose 137 H Total Bilirubin 0.5 AST 23 ALT 20 Alkaline Phosphatase 66 <ReiOxana - Last Filed: 08/11/24 15:09> Assessment and Plan - Problems (Diagnosis) (1) Metabolic encephalopathy Status: Acute (2) Acute cystitis with hematuria Status: Acute (3) Weight loss, non-intentional Status: Acute (4) Sacral decubitus ulcer, stage II Status: Acute (5) Indwelling catheter present on admission Status: Acute (6) Hypertension Status: Acute Qualifiers: Hypertension type: unspecified Qualified Code(s): I10 - Essential (primary) hypertension - Plan Admit to [facility] -IV fluids, IV antibiotics -Trend cultures, WBCs, -Fall precautions -swallow eval, bedside -turn q 2 hours, -wound care consult -pureed diet, meds in apple sauce -administrative services director for discharge planning -marker delivery consult -replace rees Full code DVT Lovenox Diet cardiac Disposition resides at home, is primary caregiver, - Advance Directives Does patient have a Living Will: No Does patient have a Durable POA for Healthcare: No - Code Status/Comfort Care Code Status: Full Code Critical Care: No Time Spent Managing Pts Care (In Minutes): 55 <Janey Martin - Last Filed: 08/10/24 20:07> Date of Service: 08/10/24 Chart has been reviewed. Events of the last 24 hours have been noted. Case discussed with JOSEPH. I performed a substantial part of the MDM during this patient's care today. I personally made or approved the documented management plan and acknowledge its risk of complications. I agree with the findings and documentation provided in the JOSEPH's notes <Daniel Darden - Last Filed: 08/15/24 02:47>
[2024-08-10 18:49] LABS: PT Prothrombin Time 11.8 SECONDS (10-13.0); PTT, Activated Partial Thromb 32.3 SECONDS (27.2-37.4); Protime INR 1.04
[2024-08-10] MEDS ORDERED: ONDANSETRON 4 MG/2 ML VIAL IV PRN (19:08)
[2024-08-10] MEDS: NA CHLORIDE 0.9% 1,000 ML IV SCH (22:14)
[2024-08-11] MEDS: ZOLPIDEM TARTRATE 5 MG TABLET PO PRN (00:24)
[2024-08-11 01:01] VITALS: BMI 14.3
[2024-08-11 05:46] LABS: Absolute Lymphocytes (CBC) 1.3 K/uL (0.7-4.9); Absolute Monocytes 0.3 K/uL (0.1-1.3); Absolute Neutrophil 6.8 K/uL (1.8-8.0); Basophils % 0.3 % (0-1.3); Eosinophils % 0.1 % (0-4.4); Hematocrit 39.3 % (36.0-45.0); Hemoglobin 14.1 g/dL (12.0-15.0); Lymphocytes % 15.1 % (15.3-44.8); MCHC 35.9 g/dL (32.0-36.0); MCV 86.4 fL (80-100); MPV 8.2 fL (7.6-11.3); Monocytes % 3.4 % (3.3-12.3); Neutrophils % 81.1 % (41.7-73.7); Platelets 313 thou/uL (152-406); RBC Red Blood Cell Count 4.54 M/uL (3.86-4.86)
[2024-08-11 06:03] LABS: Anion Gap 8.4 mEq/L (5.0-15.0); Magnesium 1.8 mg/dL (1.6-2.4); Potassium 3.4 mEq/L (3.5-5.1)
[2024-08-11] MEDS: CEFTRIAXONE 1,000 MG in NA CHLORIDE 0.9% 50 ML IVPB SCH (08:45)
[2024-08-11] MEDS: MAGNESIUM SULFATE 1 gm IVPB 1 GM/100 ML BAG IV ONE (10:30)
--- NOTE | 2024-08-11 10:58 | EKG ---
Test Date: 2024-08-10 Test Time: 16:55:09 Senior Oracle Database Developer: MEASUREMENT RESULTS: Intervals: Rate: 95 MT: 174 QRSD: 90 QT: 370 QTc: 464 Topmost: P: 81 MT: 174 QRS: 43 T: 86 INTERPRETIVE STATEMENTS: Normal sinus rhythm T wave abnormality, consider lateral ischemia Abnormal ECG Compared to ECG 01/07/2024 18:04:34 T-wave abnormality now present Possible ischemia now present Sinus tachycardia no longer present Electronically Signed On 08-11-24 10:56:21 CDT by Camacho Hidalgo
[2024-08-11] MEDS: KCL 20 MEQ/100 mL IVPB 20 MEQ/100 ML BAG IV SCH (12:25)
--- NOTE | 2024-08-11 15:21 | P.PN ---
Date of Service: 08/11/24 Subjective: Seen resting in bed patient does not answer questions. Patient has a long history of dementia per chart review. No fevers overnight Review of Systems 10-point ROS is unable to be obtained secondary to advanced dementia Physical Examination - Physical Exam General: Alert, In no apparent distress, Oriented x1 HEENT: Atraumatic, Normocephalic Neck: Supple, 2+ carotid pulse no bruit Respiratory: Clear to auscultation bilaterally, Normal air movement Cardiovascular: Normal pulses, Regular rate/rhythm, Normal S1 S2 Capillary refill: <2 Seconds Gastrointestinal: Normal bowel sounds, Soft and benign, G-tube Musculoskeletal: Other (leg pain, ) Integumentary: Other (stage 2 pressure ulcer) Neurological: Abnormal gait, Abnormal speech, Abnormal strength Urinary: Rees catheter - Studies Laboratory Data (last 24 hrs) 08/10/24 08/10/24 16:45 16:45 WBC 7.20 Hgb 14.8 Hct 41.6 Plt Count 322 Sodium 137 Potassium 3.4 L BUN 22 H Creatinine 0.59 Glucose 137 H Total Bilirubin 0.5 AST 23 ALT 20 Alkaline Phosphatase 66 - Studies Laboratory Data (last 24 hrs) 08/10/24 08/10/24 08/10/24 18:28 16:45 16:45 WBC 7.20 Hgb 14.8 Hct 41.6 Plt Count 322 PT 11.8 INR 1.04 APTT 32.3 Sodium 137 Potassium 3.4 L BUN 22 H Creatinine 0.59 Glucose 137 H Total Bilirubin 0.5 AST 23 ALT 20 Alkaline Phosphatase 66 Assessment and Plan - Problems (Diagnosis) (1) Metabolic encephalopathy Current Visit: Yes Status: Acute (2) Acute cystitis with hematuria Current Visit: Yes Status: Acute (3) Weight loss, non-intentional Current Visit: Yes Status: Acute (4) Sacral decubitus ulcer, stage II Current Visit: Yes Status: Acute (5) Indwelling catheter present on admission Current Visit: Yes Status: Acute (6) Hypertension Current Visit: No Status: Acute Qualifiers: Hypertension type: unspecified Qualified Code(s): I10 - Essential (primary) hypertension - Plan Admit to [facility] -Encephalopathy likely resolved. Advanced dementia -Urine culture with gram-negative rods, continue Rocephin -Spoke with her over the phone at length -Fall precautions -start low-dose tramadol -wound care consult -pureed diet, meds in apple sauce -Nutrition through G-tube -manager office services for discharge planning -replace rees Full code DVT Lovenox Diet cardiac Disposition resides at home, is primary caregiver, - Advance Directives Does patient have a Living Will: No Does patient have a Durable POA for Healthcare: No - Code Status/Comfort Care Code Status: Full Code Critical Care: No Time Spent Managing Pts Care (In Minutes): 45
[2024-08-12 04:57] LABS: Absolute Basophils 0.1 K/uL (0-0.5); Absolute Eosinophils 0.1 K/uL (0-0.5); Absolute Lymphocytes (CBC) 2.8 K/uL (0.7-4.9); Absolute Monocytes 0.5 K/uL (0.1-1.3); Absolute Neutrophil 5.5 K/uL (1.8-8.0); Basophils % 0.8 % (0-1.3); Eosinophils % 0.7 % (0-4.4); Hematocrit 37.7 % (36.0-45.0); Hemoglobin 13.2 g/dL (12.0-15.0); Lymphocytes % 30.9 % (15.3-44.8); MCH 30.9 pg (27.0-35.0); MCV 88.4 fL (80-100); MPV 7.9 fL (7.6-11.3); Monocytes % 5.8 % (3.3-12.3); Neutrophils % 61.8 % (41.7-73.7); Nucleated Red Blood Cells % 0.1 % (0-0); Platelets 294 thou/uL (152-406); RBC Red Blood Cell Count 4.26 M/uL (3.86-4.86); Red Cell Distribution Width 14.9 % (12.1-15.2)
[2024-08-12 05:23] LABS: Anion Gap 7.2 mEq/L (5.0-15.0); Magnesium 1.9 mg/dL (1.6-2.4); Potassium 3.2 mEq/L (3.5-5.1)
[2024-08-12] MEDS: KCL 20 MEQ/100 mL IVPB 20 MEQ/100 ML BAG IV SCH (11:41)
[2024-08-12] MEDS: CIPROFLOXACIN HCL 500 MG TAB PO SCH (11:41)
--- NOTE | 2024-08-12 16:10 | P.PN ---
Date of Service: 08/12/24 Subjective: Resting comfortably in bed. She is opening her eyes more today. Her is at bedside. He states this is normally how she is Review of Systems 10-point ROS is unable to be obtained secondary to advanced dementia Physical Examination - Physical Exam General: Alert, In no apparent distress, Oriented x1 HEENT: Atraumatic, Normocephalic Neck: Supple, 2+ carotid pulse no bruit Respiratory: Clear to auscultation bilaterally, Normal air movement Cardiovascular: Normal pulses, Regular rate/rhythm, Normal S1 S2 Capillary refill: <2 Seconds Gastrointestinal: Normal bowel sounds, Soft and benign, G-tube Musculoskeletal: Other (leg pain, ) Integumentary: Other (stage 2 pressure ulcer) Neurological: Abnormal gait, Abnormal speech, Abnormal strength Urinary: Rubin catheter - Studies Laboratory Data (last 24 hrs) 08/10/24 08/10/24 16:45 16:45 WBC 7.20 Hgb 14.8 Hct 41.6 Plt Count 322 Sodium 137 Potassium 3.4 L BUN 22 H Creatinine 0.59 Glucose 137 H Total Bilirubin 0.5 AST 23 ALT 20 Alkaline Phosphatase 66 - Studies Laboratory Data (last 24 hrs) 08/10/24 08/10/24 08/10/24 18:28 16:45 16:45 WBC 7.20 Hgb 14.8 Hct 41.6 Plt Count 322 PT 11.8 INR 1.04 APTT 32.3 Sodium 137 Potassium 3.4 L BUN 22 H Creatinine 0.59 Glucose 137 H Total Bilirubin 0.5 AST 23 ALT 20 Alkaline Phosphatase 66 Assessment and Plan - Problems (Diagnosis) (1) Metabolic encephalopathy Current Visit: Yes Status: Acute (2) Acute cystitis with hematuria Current Visit: Yes Status: Acute (3) Weight loss, non-intentional Current Visit: Yes Status: Acute (4) Sacral decubitus ulcer, stage II Current Visit: Yes Status: Acute (5) Indwelling catheter present on admission Current Visit: Yes Status: Acute (6) Hypertension Current Visit: No Status: Acute Qualifiers: Hypertension type: unspecified Qualified Code(s): I10 - Essential (primary) hypertension 7. Hypokalemia - Plan Admit to [facility] -Encephalopathy likely resolved. Advanced dementia -Urine culture growing MDR Klebsiella. Antibiotics switched over to ciprofloxacin -Fall precautions -start low-dose tramadol -wound care consult -pureed diet, meds in apple sauce -Nutrition through G-tube -rehabilitation services aide for discharge planning -Replace potassium -Wound dressing applied per wound team Full code DVT Lovenox Diet cardiac Disposition resides at home, is primary caregiver, - Advance Directives Does patient have a Living Will: No Does patient have a Durable POA for Healthcare: No - Code Status/Comfort Care Code Status: Full Code Critical Care: No Time Spent Managing Pts Care (In Minutes): 45
[2024-08-13 01:06] VITALS: O2SAT 98
[2024-08-13 04:47] LABS: Absolute Eosinophils 0.1 K/uL (0-0.5); Absolute Lymphocytes (CBC) 2.6 K/uL (0.7-4.9); Absolute Monocytes 0.7 K/uL (0.1-1.3); Absolute Neutrophil 4.9 K/uL (1.8-8.0); Basophils % 0.4 % (0-1.3); Eosinophils % 1.2 % (0-4.4); Hematocrit 32.5 % (36.0-45.0); Hemoglobin 11.3 g/dL (12.0-15.0); Lymphocytes % 31.5 % (15.3-44.8); MCH 31.2 pg (27.0-35.0); MCHC 34.9 g/dL (32.0-36.0); MCV 89.2 fL (80-100); MPV 8.1 fL (7.6-11.3); Monocytes % 8.2 % (3.3-12.3); Neutrophils % 58.7 % (41.7-73.7); Nucleated Red Blood Cells % 0.1 % (0-0); Platelets 253 thou/uL (152-406); RBC Red Blood Cell Count 3.64 M/uL (3.86-4.86); Red Cell Distribution Width 15.1 % (12.1-15.2)
[2024-08-13 05:09] LABS: Anion Gap 9.2 mEq/L (5.0-15.0); Magnesium 1.9 mg/dL (1.6-2.4); Potassium 4.2 mEq/L (3.5-5.1)
[2024-08-13 08:30] VITALS: BP 143/80; TEMP 97.6
--- NOTE | 2024-08-13 13:20 | P.DS ---
Admission Date: 08/10/24 Discharge Date: 08/13/24 Disposition: ROUTINE DISCHARGE Reason for Admission: UTI, confusion Hospital Course: 78-year-old female with a past medical history 9 Diabetes - IDDM; Hyperlipidemia; Glaucoma; Hypothyroidism; Hypertension; dementia, presents to the emergency room via EMS with confusion. Upon admission she was started on IV antibiotics, fluid. Her clinical condition improved. Speech therapy was consulted and she passed her bedside swallow evaluation. Furthermore her potassium was replaced. In addition she was found to have a stage II wound on her sacrum. wound care was consulted and her wound was addressed appropriately. At baseline she has very severe dementia. Her states he feels she is back to her baseline levels. The remainder of her medical problems are chronic and stable. She is medically optimized for discharge Vital Signs/Physical Exam: Temp Pulse Resp BP Pulse Ox 97.6 F 89 18 143/80 H 100 08/13/24 08:00 08/13/24 08:00 08/13/24 08:00 08/13/24 08:00 08/13/24 08:00 Laboratory Data at Discharge: WBC 8.30 thou/uL (4.3-10.9) 08/13/24 04:26 Hgb 11.3 g/dL (12.0-15.0) L D 08/13/24 04:26 Hct 32.5 % (36.0-45.0) L 08/13/24 04:26 Plt Count 253 thou/uL (152-406) 08/13/24 04:26 PT 11.8 SECONDS (10-13.0) 08/10/24 18:28 INR 1.04 08/10/24 18:28 APTT 32.3 SECONDS (27.2-37.4) 08/10/24 18:28 Sodium 140 mEq/L (136-145) 08/13/24 04:26 Potassium 4.2 mEq/L (3.5-5.1) D 08/13/24 04:26 BUN 29 mg/dL (7-18) H 08/13/24 04:26 Creatinine 0.79 mg/dL (0.55-1.02) 08/13/24 04:26 Glucose 117 mg/dL (74-106) H 08/13/24 04:26 Magnesium 1.9 mg/dL (1.6-2.4) 08/13/24 04:26 Total Bilirubin 0.5 mg/dL (0.2-1.0) 08/10/24 16:45 AST 23 U/L (15-37) 08/10/24 16:45 ALT 20 U/L (13-56) 08/10/24 16:45 Alkaline Phosphatase 66 U/L (45-117) 08/10/24 16:45 Home Medications: Collagenase [Santyl Ointment*] 1 appl TOP DAILY tube 10/29/23 Acetaminophen [M-Pap] 15 ml PO Q4H PRN 08/12/24 Cholecalciferol (Vitamin D3) [Vitamin D3] 1 unit PO DAILY 08/12/24 Melatonin/L[place] Extr [Melatonin-[place]emon [place] Tablet] 1 each PO BEDTIME PRN 08/12/24 Multivitamin with Minerals [Multivitamins with Minerals] 1 each PO DAILY 08/12/24 Followup: Karthik Gunter DO, DO [Primary Care Provider] -
== END 2024-08-13 11:48 | disposition home or self-care (01) | DRG 698 ==
LOC: ER 16:00 → ERHOLD 19:06 → 2ND 20:05
PROVIDERS: ADMIT Hospitalist; ATTEND Family Medicine
PROC: 0T9B70Z Drainage of Bladder with Drainage Device, Via Natural or Artificial Opening (ICD-10-PCS; principal; 2024-08-10)
DX: T83.518A Infection and inflammatory reaction due to other urinary catheter, initial encounter (principal); E43 Unspecified severe protein-calorie malnutrition; G93.41 Metabolic encephalopathy; Z68.1 Body mass index [BMI] 19.9 or less, adult; N30.01 Acute cystitis with hematuria; E87.6 Hypokalemia; E03.9 Hypothyroidism, unspecified; I10 Essential (primary) hypertension; E78.5 Hyperlipidemia, unspecified; E11.39 Type 2 diabetes mellitus with other diabetic ophthalmic complication; H42 Glaucoma in diseases classified elsewhere; F03.90 Unspecified dementia, unspecified severity, without behavioral disturbance, psychotic disturbance, mood disturbance, and anxiety; B96.1 Klebsiella pneumoniae [K. pneumoniae] as the cause of diseases classified elsewhere; L89.152 Pressure ulcer of sacral region, stage 2; Z91.040 Latex allergy status; Z79.899 Other long term (current) drug therapy
CPT/HCPCS: 36415; 72170; 80048; 80076; 81001; 82947; 83605; 83735; 85025; 85610; 85730; 87040; 87077; 87086; 87088; 87186; 93005; 96361; 96365; 96375; 99285; J0696; J1200; J3475; J3480; J7030; J7040